=== PATIENT | female | born 1945 | race Caucasian/White ===

== ENCOUNTER → 2023-04-04 | Outpatient (CLI) | payer MEDICARE, SELFPAY ==
--- NOTE | 2023-04-04 15:37 | RAD_ITS ---
STUDY: X-RAY CHEST REASON FOR EXAM: Female, 77 years old. procedure TECHNIQUE: PA and lateral views of the chest. COMPARISON: None. FINDINGS: The lungs are clear and slightly underexpanded. There is no demonstrated pleural abnormality. Normal size heart. Normal mediastinum and essence. Normal visualized pulmonary arteries. There is atherosclerotic calcification of the aortic arch with tortuosity. There is demineralization of the osseous structures. 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 There is no demonstrated abnormality of the visualized soft tissue structures of the upper abdomen. RAD/Chest PA and Lateral IMPRESSION: No acute cardiopulmonary disease. Electronically Signed: Liss Aldana MD at 16:58 EST ,
--- OUTSIDE RECORDS SUMMARY | 2023-04-04 15:41 | XMS RPT_ITS | CCD ---
Author Name Unknown Address [address] [place] [address] Organization [facility] Care Team Providers Care Inspecting Supervisor Name Role Phone Janeth Olivo MD Primary Care Provider Janeth Olivo MD Primary Care Provider Mlaly Borden RN, Omayra Unavailable [phone] JILL MARTE Consulting Unavaila JR Hernandez Attending Unavailable TALAMPAS, JANETH D Primary Care Unavailable CYNTHIA ALCOCER Admitting Unavailable RUTHIE HAMM CNP Attending Unavailable TALAMPAS, JANETH Primary Care Unavailable TALAMPAS, JANETH D Primary Care Unavailable TALAMPAS, JANETH D Referring Unavailable TALAMPAS, JANETH D Primary Care Unavailable TALAMPAS, JANETH D Referring Unavailable TALAMPAS, JANETH D Attending Unavailable TALAMPAS, JANETH D Primary Care Unavailable TALAMPAS, JANETH D Referring Unavailable TALAMPAS, JANETH D Primary Care Unavailable NOVA, RUTHIE Referring Unavailable NOVA, RUTHIE Attending Unavailable TALAMPAS, JANETH D Primary Care Unavailable NOVA, RUTHIE Attending Unavailable TALAMPAS, JANETH D Primary Care Unavailable NOVA, RUTHIE Attending Unavailable TALAMPAS, JANETH D Primary Care Unavailable SHERLY LEONG Referring Unavailable TALAMPAS, JANETH D Primary Care Unavailable Allergies Allergy Classification Reported Allergen(s) Allergy Type Date of Onset Reaction(s) Facility (20 sources) levoFLOXacin; Translations: [LEVOFLOXACIN] Drug Allergy 9 [facility] Work Phone: (20 sources) PARoxetine; Translations: [PAROXETINE HCL] Drug Allergy 5 [facility] Work Phone: (20 sources) Sertraline; Translations: [SERTRALINE HCL] Drug Allergy 5 [facility] Work Phone: (20 sources) Sulfamethoxazole / Trimethoprim; Translations: [SULFAMETHOXAZOLE-TRI METHOPRIM] Drug Allergy 5 [facility] Work Phone: Medications Current Medications Medication Drug Class(es) Dates Sig (Normalized) Sig (Original) amLODIPine 5 mg oral tablet (3 sources) Dihydropyridine Calcium Channel Mary Start: 02-23-2023 End: 02-26-2024 amLODIPine (NORVASC) 5 mg tablet Take 1 tablet by mouth once daily. Do not take this medication if your blood pressure is less than 130/80 90 tablet 3 03/03/2023 02/26/2024 Active Completed/Discontinued Medications Medication Drug Class(es) Dates Sig (Normalized) Sig (Original) aspirin 81 mg oral tablet (15 sources) Platelet Aggregation Inhibitor, Nonsteroidal Anti-inflammatory Drug Start: 08-18-2006 End: 09-17-2022 take 1 tablet by mouth once daily Aspirin 81 mg ORAL Tab Take one(1) tablet daily. 0 08/18/2006 09/17/2022 Discontinued Problems Active Problems Problem Classification Problem Date Documented Date Episodic/Chronic Acquired foot deformities (1 source) Hammer toe; Translations: [Other hammer toe(s) (acquired), right foot] Chronic Acquired foot deformities (1 source) Bunion; Translations: [Bunion of unspecified foot] Episodic Cardiac dysrhythmias (4 sources) Bradycardia; Translations: [Bradycardia, unspecified] Onset: 02-21-2023 02-21-2023 Episodic Conduction disorders (4 sources) Atrioventricular block, second degree; Translations: [Unspecified right bundle-branch block] Onset: 02-21-2023 03-03-2023 Chronic Congestive heart failure; nonhypertensive (4 sources) Acute heart failure; Translations: [Heart failure, unspecified] Onset: 02-22-2023 02-22-2023 Chronic Diabetes mellitus without complication (20 sources) Type 2 diabetes mellitus without complication; Translations: [Type 2 diabetes mellitus without complications] Onset: 03-24-2016 Chronic Disorders of lipid metabolism (20 sources) Mixed hyperlipidemia; Translations: [Mixed hyperlipidemia] Onset: 11-13-2004 Chronic Essential hypertension (20 sources) Hypertensive disorder; Translations: [Essential (primary) hypertension] Onset: 10-16-2014 Chronic Heart valve disorders (3 sources) Heart murmur; Translations: [Cardiac murmur, unspecified] Onset: 02-28-2023 Episodic Immunizations and screening for infectious disease (1 source) Encounter for immunization; Translations: [Encounter for immunization] Onset: 02-21-2023 Episodic Mood disorders (2 sources) Depressive disorder; Translations: [Depression, unspecified depression type] Chronic Mood disorders (1 source) Mood disorders; Translations: [Depression, unspecified depression type] Onset: 09-17-2022 Other and ill-defined heart disease (1 source) Left ventricular diastolic dysfunction ; Translations: [Other ill-defined heart diseases] Onset: 02-28-2023 02-28-2023 Chronic Other connective tissue disease (1 source) Bursitis of left knee; Translations: [Other bursitis of knee, left knee] Episodic Other liver diseases (20 sources) Steatosis of liver; Translations: [Fatty (change of) liver, not elsewhere classified] Onset: 06-09-2006 01-27-2017 Chronic Other liver diseases (1 source) Fatty (change of) liver, not elsewhere classified; Translations: [Other chronic nonalcoholic liver disease] 10-11-2022 Chronic Other lower respiratory disease (1 source) Rib pain; Translations: [Pleurodynia] 11-24-2022 Episodic Other lower respiratory disease (2 sources) Shortness of breath; Translations: [Shortness of breath] Onset: 02-21-2023 Episodic Other lower respiratory disease (1 source) Dyspnea; Translations: [Shortness of breath] 03-03-2023 Episodic Other nutritional; endocrine; and metabolic disorders (20 sources) Body mass index 30+ - obesity; Translations: [Body mass index (BMI) 30.0-30.9, adult] Onset: 10-16-2014 10-16-2014 Chronic Other screening for suspected conditions (not mental disorders or infectious disease) (6 sources) Patient encounter status; Translations: [Encounter for screening mammogram for malignant neoplasm of breast] Onset: 02-21-2023 Episodic Other upper respiratory disease (20 sources) Allergic rhinitis due to pollen; Translations: [Allergic rhinitis due to pollen] Onset: 03-28-2006 03-28-2006 Chronic Other upper respiratory infections (1 source) Acute upper respiratory infection; Translations: [Acute upper respiratory infection, unspecified] Episodic Past or Other Problems Problem Classification Problem Date Documented Da te Episodic/Chronic E Codes: Fall (2 sources) Fall on same level from slipping, tripping or stumbling ; Translations: [Fall on same level from slipping, tripping and stumbling without subsequent striking against object, initial encounter] Onset: 11-24-2022 11-24-2022 Episodic Other and unspecified benign neoplasm (6 sources) Polyp of colon; Translations: [Polyp of colon] Onset: 09-17-2022 Episodic Other and unspecified benign neoplasm (1 source) Polyp of colon; Translations: [Polyp of colon, unspecified part of colon, unspecified type] Onset: 09-17-2022 Episodic Other bone disease and musculoskeletal deformities (20 sources) Osteopenia; Translations: [Other specified disorders of bone density and structure, unspecified site] Onset: 01-08-2011 01-08-2011 Episodic Other gastrointestinal disorders (20 sources) Functional diarrhea; Translations: [Functional diarrhea] Onset: 03-23-2016 03-23-2016 Episodic Other liver diseases (20 sources) Elevated liver enzymes level; Translations: [Abnormal levels of other serum enzymes] Onset: 03-23-2016 03-23-2016 Episodic Other lower respiratory disease (1 source) Pleurodynia; Translations: [Rib pain on left side] Onset: 11-24-2022 Episodic Results Test Name Value Interpretation Reference Range Facil ity Vital Signs Date Time Vital Sign Value Performing Clinician Ileana mix 03-03-2023 13:45-0500 Diastolic blood pressure 53 mm[Hg] Ruthie Nova BLENDING MACHINE FEEDER.BRANCH LOGISTICS SUPERVISOR Work Phone: [facility] 03-03-2023 13:45-0500 Heart rate 52 /min Ruthie Nova BLENDING MACHINE FEEDER.BRANCH LOGISTICS SUPERVISOR Work Phone: [facility] 03-03-2023 13:45-0500 Systolic blood pressure 146 mm[Hg] Ruthie Avtar BLENDING MACHINE FEEDER.BRANCH LOGISTICS SUPERVISOR Work Phone: [facility] 03-03-2023 13:44-0500 Body weight 75.75 kg Ruthie Nova BLENDING MACHINE FEEDER.BRANCH LOGISTICS SUPERVISOR Work Phone: [facility] 03-03-2023 13:44-0500 Respiratory rate 16 /min Ruthie Hartleys BLENDING MACHINE FEEDER.BRANCH LOGISTICS SUPERVISOR Work Phone: [facility] 11-24-2022 14:14-0400 Body temperature 98.6 [degF] Sherly Leong BLENDING MACHINE FEEDER.KETTLE FRY COOK OPERATOR Work Phone: [facility] 11-24-2022 14:14-0400 Body weight 74.39 kg Sherly Leong BLENDING MACHINE FEEDER.KETTLE FRY COOK OPERATOR Work Phone: [facility] 11-24-2022 14:14-0400 Diastolic blood pressure 78 mm[Hg] Sherly Leong BLENDING MACHINE FEEDER.KETTLE FRY COOK OPERATOR Work Phone: [facility] 11-24-2022 14:14-0400 Heart rate 98 /min Sherly Leong BLENDING MACHINE FEEDER.KETTLE FRY COOK OPERATOR Work Phone: [facility] 11-24-2022 14:14-0400 Respiratory rate 18 /min Sherly Leong BLENDING MACHINE FEEDER.KETTLE FRY COOK OPERATOR Work Phone: [facility] 11-24-2022 14:14-0400 SaO2% (BldA) [Mass fraction] 94 % Sherly Leong BLENDING MACHINE FEEDER.KETTLE FRY COOK OPERATOR Work Phone: [facility] 11-24-2022 14:14-0400 Systolic blood pressure 132 mm[Hg] Sherly Leong BLENDING MACHINE FEEDER.KETTLE FRY COOK OPERATOR Work Phone: [facility] 09-17-2022 17:54-0400 Diastolic blood pressure 70 mm[Hg] Janeth Olivo MD Work Phone: [facility] 09-17-2022 17:54-0400 Systolic blood pressure 130 mm[Hg] Janeth Olivo MD Work Phone: [facility] 09-17-2022 16:55-0400 Body temperature 99.19 [degF] Janeth Olivo MD Work Phone: [facility] 09-17-2022 16:55-0400 Body weight 75.3 kg Janeth Olivo MD Work Phone: [facility] 09-17-2022 16:55-0400 Heart rate 95 /min Janeth Olivo MD Work Phone: [facility] 09-17-2022 16:55-0400 Respiratory rate 18 /min Janeth Olivo MD Work Phone: [facility] 09-17-2022 16:55-0400 SaO2% (BldA) [Mass fraction] 96 % Janeth Olivo MD Work Phone: [facility] 02-20-2022 13:06-0500 Body temperature 98.49 [degF] Tracey Solomon BLENDING MACHINE FEEDER.KETTLE FRY COOK OPERATOR Work Phone: [facility] 02-20-2022 13:06-0500 Body weight 75.48 kg Tracey Solomon BLENDING MACHINE FEEDER.KETTLE FRY COOK OPERATOR Work Phone: [facility] 02-20-2022 13:06-0500 Diastolic blood pressure 74 mm[Hg] Tracey Solomon BLENDING MACHINE FEEDER.KETTLE FRY COOK OPERATOR Work Phone: [facility] 02-20-2022 13:06-0500 Heart rate 101 /min Tracey Solomon BLENDING MACHINE FEEDER.KETTLE FRY COOK OPERATOR Work Phone: [facility] 02-20-2022 13:06-0500 Respiratory rate 18 /min Tracey Solomon BLENDING MACHINE FEEDER.KETTLE FRY COOK OPERATOR Work Phone: [facility] 02-20-2022 13:06-0500 SaO2% (BldA) [Mass fraction] 96 % Tracey Solomon BLENDING MACHINE FEEDER.KETTLE FRY COOK OPERATOR Work Phone: [facility] 02-20-2022 13:06-0500 Systolic blood pressure 138 mm[Hg] Tracey Solomon BLENDING MACHINE FEEDER.KETTLE FRY COOK OPERATOR Work Phone: [facility] 12-04-2021 16:11-0400 Body weight 73.03 kg Janeth Olivo MD Work Phone: [facility] 12-04-2021 16:11-0400 Diastolic blood pressure 72 mm[Hg] Janeth Olivo MD Work Phone: [facility] 12-04-2021 16:11-0400 Heart rate 93 /min Janeth Olivo MD Work Phone: [facility] 12-04-2021 16:11-0400 SaO2% (BldA) [Mass fraction] 94 % Janeth Olivo MD Work Phone: [facility] 12-04-2021 16:11-0400 Systolic blood pressure 136 mm[Hg] Janeth Olivo MD Work Phone: [facility] 06-11-2021 13:41-0400 Body weight 73.94 kg Ruthie Nova BLENDING MACHINE FEEDER.BRANCH LOGISTICS SUPERVISOR Work Phone: [facility] 06-11-2021 13:41-0400 Diastolic blood pressure 68 mm[Hg] Ruthie Nova BLENDING MACHINE FEEDER.BRANCH LOGISTICS SUPERVISOR Work Phone: [facility] 06-11-2021 13:41-0400 Heart rate 92 /min Ruthie Nova BLENDING MACHINE FEEDER.BRANCH LOGISTICS SUPERVISOR Work Phone: [facility] 06-11-2021 13:41-0400 Respiratory rate 16 /min Ruthie Nova BLENDING MACHINE FEEDER.BRANCH LOGISTICS SUPERVISOR Work Phone: [facility] 06-11-2021 13:41-0400 Systolic blood pressure 136 mm[Hg] Ruthie Nova BLENDING MACHINE FEEDER.BRANCH LOGISTICS SUPERVISOR Work Phone: [facility] Encounters Encounter Date Encounter Type Care Provider Facility Start: 03-10-2023 End: 03-10-2023 ambulatory [facility] Facility:[facility] Start: 03-03-2023 End: 03-03-2023 ambulatory [facility] Facility:[facility] Start: 03-03-2023 End: 03-03-2023 Patient encounter procedure Ruthie Nova BLENDING MACHINE FEEDER.BRANCH LOGISTICS SUPERVISOR Work Phone: [facility] Procedures Date Procedure Procedure Detail Performing Clinician Start: 03-03-2023 INFLUENZA VACCINE, P RSV FREE, AGE 65+ YR, HIGH DOSE, QUADRIVALENT (FLUZONE HIGH-DOSE) Ruthie Nova BLENDING MACHINE FEEDER.BRANCH LOGISTICS SUPERVISOR Work Phone: Start: 12-14-2023 PFIZER-BIONTECH COVI D-19 VACCINE ( SEASON) AGE 12+ YR Ruthiekyaw Nova BLENDING MACHINE FEEDER.BRANCH LOGISTICS SUPERVISOR Work Phone: Start: 12-29-2021 Us abdominal real ti me w/image limited Janeth Olivo MD Work Phone: Start: 07-20-2021 Screening mammograph y bi 2-view breast inc cad Bulk Order Provider Start: 12-17-2020 Colonoscopy Ruthie jacques BLENDING MACHINE FEEDER.BRANCH LOGISTICS SUPERVISOR Work Phone: Start: 11-11-2020 Adult depression scr eening assessment Ruthiekyaw Nova BLENDING MACHINE FEEDER.BRANCH LOGISTICS SUPERVISOR Work Phone: Plan of Treatment Date Care Activity Detail Author Start: 11-30-2027 Urine microalbumin profile [facility] Start: 12-17-2025 Colonoscopy COLONOSCOPY [facility] Start: 12-17-2025 COLORECTAL CANCER SCREENING COLORECTAL CANCER SCREENING [facility] Start: 02-22-2024 Glaucoma screening Dilated Retinal E xam [facility] Start: 02-22-2024 Hepatitis C antibody , confirmatory test Dilated Retinal Exam [facility] Start: 09-29-2023 Hepatitis B screening URINE AL BUMIN:CREATININE RATIO [facility] Start: 09-29-2023 Hepatitis B surface antibody level LDL CHOLESTEROL [facility] Start: 09-18-2023 ANNUAL PCP TEAM AUTO HAULER MIRIAM DISEASE VISIT ANNUAL PCP TEAM CHRONIC DISEASE VISIT [facility] Start: 03-31-2023 Hemoglobin A1c measurement HbA1C [facility] Start: 03-31-2023 Hemoglobin A1c/Hemoglobin.total in Blood HBA1C [facility] Start: 12-04-2022 3 comp foot exam completed DIABETIC FOOT EXAM [facility] Start: 12-04-2022 ANNUAL PCP TEAM AUTO HAULER MIRIAM DISEASE VISIT ANNUAL PCP TEAM CHRONIC DISEASE VISIT [facility] Start: 12-04-2022 COVID-19 VACCINE (4 - Booster for Pfizer series) COVID-19 VACCINE (4 - Booster for Pfizer series) [facility] Immunizations Immunization Date Immunization Notes Care Provider Vick aranda 03-03-2023 COVID-19 vaccine, ag e 12+ yr, season (PFIZER-BIONTECH) Ruthie Nova BLENDING MACHINE FEEDER.BRANCH LOGISTICS SUPERVISOR Work Phone: [facility] Work Phone: 03-03-2023 influenza (HD-IIV4) vaccine, age 65+ yr, high dose, quadrivalent, PF (FLUZONE HIGH-DOSE) Ruthie Nova BLENDING MACHINE FEEDER.BRANCH LOGISTICS SUPERVISOR Work Phone: [facility] Work Phone: 01-15-2021 influenza (aIIV4) vaccine, age 65+ yr, quadrivalent, PF (FLUAD QUADRIVALENT) Ruthie Nova BLENDING MACHINE FEEDER.BRANCH LOGISTICS SUPERVISOR Work Phone: [facility] Work Phone: 01-15-2021 influenza, injectabl e, quadrivalent, preservative free Ruthie Nova BLENDING MACHINE FEEDER.BRANCH LOGISTICS SUPERVISOR Work Phone: [facility] 01-15-2021 influenza virus vaccine, unspecified formulation Blas Joepadmini [facility] 12-09-2020 zoster vaccine recombinant Ruthie Nova BLENDING MACHINE FEEDER.BRANCH LOGISTICS SUPERVISOR Work Phone: [facility] Work Phone: 12-09-2020 zoster vaccine, unspecified formulation Ruthie Nova BLENDING MACHINE FEEDER.BRANCH LOGISTICS SUPERVISOR Work Phone: [facility] 06-10-2020 zoster vaccine recombinant Ruthie Nova BLENDING MACHINE FEEDER.BRANCH LOGISTICS SUPERVISOR Work Phone: [facility] Work Phone: 06-10-2020 zoster vaccine, unspecified formulation Ruthie Nova BLENDING MACHINE FEEDER.BRANCH LOGISTICS SUPERVISOR Work Phone: [facility] 06-09-2020 zoster vaccine recombinant Ruthie Nova BLENDING MACHINE FEEDER.BRANCH LOGISTICS SUPERVISOR Work Phone: [facility] Work Phone: 01-14-2020 influenza, high dose seasonal, preservative-free Ruthie Nova BLENDING MACHINE FEEDER.BRANCH LOGISTICS SUPERVISOR Work Phone: [facility] Work Phone: 01-14-2020 influenza, high-dose , quadrivalent vaccine (FLUZONE HIGH DOSE QUADRIVALENT) Ruthie Nova BLENDING MACHINE FEEDER.BRANCH LOGISTICS SUPERVISOR Work Phone: [facility] Work Phone: 01-14-2020 influenza, injectabl e, quadrivalent, preservative free Ruthie Nova BLENDING MACHINE FEEDER.BRANCH LOGISTICS SUPERVISOR Work Phone: [facility] 12-25-2018 influenza, high dose seasonal, preservative-free Ruthie Nova BLENDING MACHINE FEEDER.BRANCH LOGISTICS SUPERVISOR Work Phone: [facility] 11-29-2017 tetanus toxoid, redu tim diphtheria toxoid, and acellular pertussis vaccine, adsorbed Ruthie Nova BLENDING MACHINE FEEDER.BRANCH LOGISTICS SUPERVISOR Work Phone: [facility] Work Phone: 11-23-2017 influenza, high dose seasonal, preservative-free Ruthie Nova BLENDING MACHINE FEEDER.BRANCH LOGISTICS SUPERVISOR Work Phone: [facility] 01-17-2017 influenza, high dose seasonal, preservative-free Ruthie Nova BLENDING MACHINE FEEDER.BRANCH LOGISTICS SUPERVISOR Work Phone: [facility] Work Phone: 12-04-2015 influenza, high dose seasonal, preservative-free Ruthie Nova BLENDING MACHINE FEEDER.BRANCH LOGISTICS SUPERVISOR Work Phone: [facility] Work Phone: 02-27-2015 zoster vaccine, live Ruthie B roger BLENDING MACHINE FEEDER.BRANCH LOGISTICS SUPERVISOR Work Phone: [facility] Work Phone: 01-22-2015 pneumococcal polysaccharide vaccine, 23 valent Ruthie Nova BLENDING MACHINE FEEDER.BRANCH LOGISTICS SUPERVISOR Work Phone: [facility] 01-07-2014 pneumococcal conjuga te vaccine, 13 valent Ruthie Nova BLENDING MACHINE FEEDER.BRANCH LOGISTICS SUPERVISOR Work Phone: [facility] 12-04-2011 influenza virus vaccine, unspecified formulation Ruthie Nova BLENDING MACHINE FEEDER.BRANCH LOGISTICS SUPERVISOR Work Phone: [facility] 12-16-2010 influenza virus vaccine, unspecified formulation Ruthie Nova BLENDING MACHINE FEEDER.BRANCH LOGISTICS SUPERVISOR Work Phone: [facility] Work Phone: 01-17-2007 influenza virus vaccine, unspecified formulation Ruthie Nova BLENDING MACHINE FEEDER.BRANCH LOGISTICS SUPERVISOR Work Phone: [facility] Work Phone: 08-18-2006 pneumococcal polysaccharide vaccine, 23 valent Ruthie Nova SERVANDO.BRANCH LOGISTICS SUPERVISOR Work Phone: [facility] Work Phone: 01-26-2005 influenza virus vaccine, unspecified formulation Ruthie Nova SERVANDO.BRANCH LOGISTICS SUPERVISOR Work Phone: [facility] Work Phone: 11-13-2004 diphtheria and tetan us toxoids, adsorbed for pediatric use Ruthiekyaw Nova APRN.BRANCH LOGISTICS SUPERVISOR Work Phone: [facility] Work Phone: NEGATED: Highlighted row has not occurred!02-21-2023 COVID-19 vaccine, age 12+ yr, season (Oz Sonotek) Blas Teapadmini [facility] Work Phone: NEGATED: Highlighted row has not occurred!02-21-2023 influenza (HD-IIV4) vaccine, age 65+ yr, high dose, quadrivalent, PF (FLUZONE HIGH-DOSE) Blas Teapadmini [facility] Work Phone: Payers Date Payer Category Payer Medicare HU[employer]NA MEDICARE HU[employer]NA GOLD PLUS [id number] 2020-Present [phone] [address] [address] [place] [address] O [id number] 2020 Medicare HUMANA MEDICARE HU[employer]NA GOLD PLUS [id number] 2020-Present [phone] [address] [address] [place] [address] O [id number] 2020 Private Health Insurance [id number] 1945 Unknown [id number] Private Health Insurance Social History Date Type Detail Facility Start: 12-04-2021 Tobacco smoking status NHIS Never smoked tobacco [facility] Work Phone: Start: 06-11-2021 End: 03-03-2023 Alcohol intake Current drinker of alcohol (finding) [facility] Start: 06-11-2021 End: 09-17-2022 Alcohol intake [facility] Start: 06-22-2019 History SDOH Alcohol Frequency 3 [facility] Start: 06-22-2019 History SDOH Alcohol Std Drinks 1 [facility] Start: 12-17-2020 History SDOH Alcohol Comment glass of wine 2 times per week [facility] Start: 06-22-2019 History SDOH Social Connections Phone 5 [facility] Start: 06-22-2019 History SDOH Social Connections Get Together 2 [facility] Start: 06-22-2019 History SDOH Physical Activity DPW 0 [facility] Start: 06-22-2019 History SDOH Financial 4 [facility] Start: 06-22-2019 Education 17 [facility] Start: 1945 Sex Assigned At Female [facility] Start: 06-01-2021 End: 02-20-2022 Exposure to SARS-CoV-2 (event) Not sure [facility] Work Phone: Start: 12-04-2021 Tobacco use and exposure Smokeless tobacco non-user [facility] Start: 12-13-2021 End: 12-23-2021 Exposure to SARS-CoV-2 (event) Unable to assess [facility] Work Phone: Start: 06-22-2019 End: 09-17-2022 Social connection and isolation panel [facility] Do you belong to any clubs or organizations such as protestant groups, unions, fraternal or athletic groups, or school groups? No [facility] Are you now , , , , never or living with a partner? [facility] How often to you hav e a drink containing alcohol? 2-4 times a month [facility] How many standard dr inks containing alcohol do you have on a typical day? 1 or 2 [facility] How often do you hav e 6 or more drinks on 1 occasion? Never [facility] How hard is it for y ou to pay for the very basics like food, housing, medical care, and heating Not very hard [facility] Adult Depression Screening Assessment 0 [facility] Do you feel stress - tense, restless, nervous, or anxious, or unable to sleep at night because your mind is troubled all the time - these days [OSQ] Not at all [facility] (I/We) worried wheth er (my/our) food would run out before (I/we) got money to buy more. Never true [facility] Start: 11-19-2020 Gender identity Identifies as female gender (finding) [facility] Start: 11-19-2020 Sexual orientation Heterosexual (finding) [facility] Medical Equipment Procedure Code Equipment Code Equipment Origin al Text Equipment Identifier Dates Start: 08-25-2006 End: 09-17-2022 Clinical Notes 01-22-2015 to 03-10-2023 Patient InstructionsBroRuthie dubon APRN.BRANCH LOGISTICS SUPERVISOR - 03/03/2023 1:40 PM Blas Treadwell - 02/23/2023 10:37 AM Blas Treadwell - 02/22/2023 2:14 PM Sherly Russo APRN.KETTLE FRY COOK OPERATOR - 11/24/2022 2:20 PM EDT Note Date & Type Note Facility 03-10-2023 Note HNO ID: [id number] Author: Ruthie Nova APRN.BRANCH LOGISTICS SUPERVISOR Service: ? Author Type: Nurse Specialist Type: Progress Notes Filed: 03/10/2023 3:26 PM Note Text: SUBJECTIVE: RSV Vaccine(1 - 1-dose 60+ series) Never done BP Controlled (<130/80) due on 06/11/2022 Diabetic Foot Exam due on 12/04/2022 HPI Wendy Shipley is a 77 year old female. Returns to clinic for routine visit. ACTIVE PROBLEM LIST Mixed Hyperlipidemia RHINITIS ALLERGIC, DUE TO POLLEN Fatty Liver Osteopenia Hypertension Goal Bp (Blood Pressure) < 150/90 Bmi 30.0-30.9,Adult Functional Diarrhea Elevated Liver Enzymes Type 2 Diabetes Mellitus Without Complication, Without Long-Term Current Use of Insulin (Hcc) Colon Polyp Bradycardia Acute Decompensated Heart Failure (Hcc) Diastolic Chf (Hcc) Heart Murmur Left Ventricular Diastolic Dysfunction With Preserved Systolic Function Hypertension HPI excerpted from previous visits: 02/21/2023 Since last seen she had an urgent care visit November 24, 2022 for rib pain on the left side. Chest x-ray at that time was negative. Presents today for routine visit. She notes intermittent shortness of breath recently. Typically with exertion. Reports no change in functional capacity. Without complaint of left-sided chest pain or rib pain today. No palpitations. Occasional dizziness and lightheadedness is present. No ankle swelling. No presyncope or syncope. Notes no change in ability to walk flat surface. Able to take 1 flight of stairs without chest pain or shortness of breath. Presents for routine visit today and noted to have bradycardia and EKG changes. She has new EKG changes since last EKG completed with sinus bradycardia,first-degree AV block, possible second-degree AV block noted in V1 by my review, new right bundle branch block, ST and T wave changes. She has intermittent shortness of breath, dizziness and lightheadedness. Echocardiogram completed 2021 showed increased LVOT gradient with Valsalva. She has not reported chest pain or syncope. She did have report of rib pain in November 2022. Recommend further evaluation at emergency department. She prefers to go to [facility] by private transport, to drive. She reports being seen by outside hospital nozzleman at [facility] and had echocardiogram completed at their office several days ago. Still has not received outside nozzleman review of echocardiogram results. She prefers to follow-up with [facility] providers. She currently notes shortness of breath on exertion with walking further distances such as in from the parking lot to her visit today. She notes dizziness which is positional. Without report of palpitations or chest pain. No presyncope or syncope. Without report of lightheadedness today. Notes that she has started amlodipine, no adverse effects noted. Negative troponin. BNP was elevated. Outside echocardiogram report received since last here. She returns to clinic for application of Zio. Today notes feeling a little lightheaded on occasion. Without report of shortness of breath or dizziness today. Without headache, chest pain, palpitations, peripheral edema, orthopnea, fatigue and PND. Last 14 Encounter BP Readings: Date: BP: 03/10/2023 139/80 03/03/2023 146/53 02/21/2023 148/66 02/21/2023 165/71[bp average[ 11/24/2022 132/78 09/17/2022 130/70 02/20/2022 138/74 12/04/2021 136/72 06/11/2021 136/68 04/13/2021 136/74 12/12/2020 122/62 12/02/2020 123/62 11/19/2020 136/72 11/11/2020 136/70 Review of Systems Constitutional: Negative. Respiratory: Negative. Cardiovascular: Negative. Endocrine: Negative for polydipsia and polyphagia. Objective BP 139/80 Pulse (!) 49 Resp 16 Wt 74.4 kg (164 lb) BMI 29.05 kg/m? Physical Exam Constitutional: Appearance: Normal appearance. HENT: Head: Normocephalic and atraumatic. Eyes: Conjunctiva/sclera: Conjunctivae normal. Neck: Thyroid: No thyromegaly. Vascular: No carotid bruit or JVD. Cardiovascular: Rate and Rhythm: Regular rhythm. Bradycardia present. Heart sounds: Murmur (RUSB) heard. Pulmonary: Effort: Pulmonary effort is normal. Breath sounds: Normal breath sounds. Abdominal: General: Bowel sounds are normal. Palpations: Abdomen is soft. Musculoskeletal: Cervical back: No muscular tenderness. Right lower leg: No edema. Left lower leg: No edema. Lymphadenopathy: Cervical: No cervical adenopathy. Skin: General: Skin is warm and dry. Neurological: General: No focal deficit present. Mental Status: She is alert and oriented to person, place, and time. ALLERGIES Allergen Reactions Levaquin [Levofloxa* Joint pain Paxil [Paroxetine H* Septra [Sulfamethox* Zoloft [Sertraline * Medications: amLODIPine (NORVASC) 5 mg tablet Take 1 tablet by mouth once daily. Do not take this medication if your blood pressure is less than 130/80 lisinop (more content not included)... [facility] 03-03-2023 Note HNO ID: [id number] Author: Ruthie Nova APRN.BRANCH LOGISTICS SUPERVISOR Service: ? Author Type: Nurse Specialist Type: Progress Notes Filed: 03/03/2023 2:59 PM Note Text: Transitional Care Management Progress Note The patients TCM visit was performed within the 14 days of discharge. Date of admission February 21, 2023 Patient's Date of discharge: February 22, 2023 Date of initial coordinator contact after discharge: February 23, 2023 Discharge diagnosis: Bradycardia hypertension hyperlipidemia Medication review completed Yes Ruthie Nova APRN.BRANCH LOGISTICS SUPERVISOR Provider Documentation: In follow-up of hospitalization, Wendy Shipley is a 77 year old female with the chief complaint of bradycardia. I have reviewed the patient?s last hospital course including diagnostic testing performed during this hospitalization, their discharge medications, and my assessment and plan with the patient and any family members present at today?s visit. HPI: She was referred to emergency department for new onset of bradycardia with EKG changes, sinus bradycardia with first degree AV block, second-degree AV block noted and lead V1, new right bundle branch block and SNT wave changes. She had reported intermittent shortness of breath dizziness lightheadedness. Echocardiogram completed 2021 showed increased gradients of LVOT with Valsalva. She was without chest pain or syncope. She reports being seen by outside hospital nozzleman at [facility] and had echocardiogram completed at their office several days ago. Still has not received outside nozzleman review of echocardiogram results. She prefers to follow-up with [facility] providers. She currently notes shortness of breath on exertion with walking further distances such as in from the parking lot to her visit today. She notes dizziness which is positional. Without report of palpitations or chest pain. No presyncope or syncope. Without report of lightheadedness today. Notes that she has started amlodipine, no adverse effects noted. Negative troponin. BNP was elevated. PAST MEDICAL HISTORY: Reviewed and updated ALLERGIES: Reviewed and updated MEDICATIONS: Reviewed and updated SOCIAL HISTORY: Reviewed and updated FAMILY HISTORY: Reviewed and updated REVIEW OF SYSTEMS: All other systems reviewed and negative, other than HPI. PHYSICAL EXAMINATION There were no vitals taken for this visit. General appearance: Well appearing, alert, in no acute distress, well-hydrated, well nourished. Lungs: Lungs clear to auscultation. No wheezing, rhonchi, rales. Heart: Positive findings: bradycardia, murmur: 3/6 systolic medium pitched harsh murmur URSB Abdomen: Abdomen soft, non-tender. Bowel sounds normal. No masses, organomegaly Extremities: No edema, or skin discoloration. Good capillary refill. 1. I have reviewed the patient record including associated test results during the last hospitalization Yes 2. I have reviewed Lab test Yes 3. I have reviewed Radiology test Yes 4. I reviewed assessment/plan with the patient/family member Yes Component Latest Ref Rng AND Units 02/21/2023 02/21/2023 02/21/2023 02/22/2023 02/22/2023 02/22/2023 9:20 PM 10:21 PM 11:00 PM 12:15 AM 5:54 AM 5:54 AM WBC 3.70 - 11.00 k/uL 6.52 6.80 RBC 3.90 - 5.20 m/uL 4.39 4.36 Hemoglobin 11.5 - 15.5 g/dL 14.0 13.9 Hematocrit 36.0 - 46.0 % 40.8 41.3 MCV 80.0 - 100.0 fL 92.9 94.7 MCH 26.0 - 34.0 pg 31.9 31.9 MCHC 30.5 - 36.0 g/dL 34.3 33.7 RDW-CV 11.5 - 15.0 % 13.2 13.3 Platelet Count 150 - 400 k/uL 126 (L) 130 (L) MPV 9.0 - 12.7 fL 11.0 11.0 Neut% % 56.7 48.5 Abs Neut (ANC) 1.45 - 7.50 k/uL 3.70 3.29 Lymph% % 28.2 30.1 Abs Lymph 1.00 - 4.00 k/uL 1.84 2.05 [place]% % 12.1 16.0 Abs [place] <0.87 k/uL 0.79 1.09 (H) Eosin% % 2.5 4.7 Abs Eosin <0.46 k/uL 0.16 0.32 Baso% % 0.2 0.3 Abs Baso <0.11 k/uL <0.03 <0.03 Immature Gran % % 0.3 0.4 IMMATURE GRANS (ABS) <0.10 k/uL <0.03 0.03 NRBC /100 WBC 0.0 0.0 Absolute nRBC <0.01 k/uL <0.01 <0.01 DTYPE Auto Auto Albumin 3.9 - 4.9 g/dL 3.7 (L) 3.7 (L) Calcium 8.5 - 10.2 mg/dL 9.4 9.1 Phosphorus 2.7 - 4.8 mg/dL 4.7 Glucose 74 - 99 mg/dL 144 (H) 124 (H) BUN 7 - 21 mg/dL 19 17 Creatinine 0.58 - 0.96 mg/dL 0.70 0.78 Sodium 136 - 144 mmol/L 141 143 Potassium 3.7 - 5.1 mmol/L 4.1 4.4 Chloride 97 - 105 mmol/L 106 (H) 105 CO2 22 - 30 mmol/L 24 22 Anion Gap 9 - 18 mmol/L 11 16 eGFR >=60 mL/min/1.73mA? 90 79 Bilirubin, Total 0.2 - 1.3 mg/dL 0.7 Bilirubin, Conjug <0.2 mg/dL 0.2 (H) Alkaline Phosphatase 34 - 123 U/L 120 AST 13 - 35 U/L 38 (H) ALT 7 - 38 U/L 26 Protein, Total 6.3 - 8.0 g/dL 6.3 d Dimer <500 ng/mL FEU 700 (H) D Dimer Age-related Cutoff ng/mL FEU 760 Magnesium 1.7 - 2.3 mg/dL 2.1 LASHAE High Sensitivity <12 ng/L 20 (H) 19 (H) 19 (H) NT Pro BNP <450 pg/mL 523 (H) TSH 0.270 - 4.200 mIU/L 2.990 ASSESSMENT/PLAN 1. Bradycardia - ICD9: 427.89, ICD10: R00.1 (primary diagnosis) She reports being seen by outside hos (more content not included)... [facility] 03-03-2023 Instructions Ruthie Nova APRN.CNS - 03/03/2023 2:14 PM EST Call to schedule a cardiology appointment (see mychart message) [phone]. Go to the ER ofr any severe or concerning symptoms documented in this encounter [facility] 03-03-2023 History of Present illness Narrative Transitional Care Management Progress Note The patients TCM visit was performed within the 14 days of discharge. Date of admission February 21, 2023 Patient's Date of discharge: February 22, 2023 Date of initial coordinator contact after discharge: February 23, 2023 Discharge diagnosis: Bradycardia hypertension hyperlipidemia Medication review completed Yes Ruthie Nova, BLENDING MACHINE FEEDER.BRANCH LOGISTICS SUPERVISOR Provider Documentation: In follow-up of hospitalization, Wendy Shipley is a 77 year old female with the chief complaint of bradycardia. I have reviewed the patient s last hospital course including diagnostic testing performed during this hospitalization, their discharge medications, and my assessment and plan with the patient and any family members present at today s visit. HPI: She was referred to emergency department for new onset of bradycardia with EKG changes, sinus bradycardia with first degree AV block, second-degree AV block noted and lead V1, new right bundle branch block and SNT wave changes. She had reported intermittent shortness of breath dizziness lightheadedness. Echocardiogram completed 2021 showed increased gradients of LVOT with Valsalva. She was without chest pain or syncope. She reports being seen by outside hospital nozzleman at [facility] and had echocardiogram completed at their office several days ago. Still has not received outside nozzleman review of echocardiogram results. She prefers to follow-up with [facility] providers. She currently notes shortness of breath on exertion with walking further distances such as in from the parking lot to her visit today. She notes dizziness which is positional. Without report of palpitations or chest pain. No presyncope or syncope. Without report of lightheadedness today. Notes that she has started amlodipine, no adverse effects noted. Negative troponin. BNP was elevated. PAST MEDICAL HISTORY: Reviewed and updated ALLERGIES: Reviewed and updated MEDICATIONS: Reviewed and updated SOCIAL HISTORY: Reviewed and updated FAMILY HISTORY: Reviewed and updated REVIEW OF SYSTEMS: All other systems reviewed and negative, other than HPI. PHYSICAL EXAMINATION There were no vitals taken for this visit. General appearance: Well appearing, alert, in no acute distress, well-hydrated, well nourished. Lungs: Lungs clear to auscultation. No wheezing, rhonchi, rales. Heart: Positive findings: bradycardia, murmur: 3/6 systolic medium pitched harsh murmur URSB Abdomen: Abdomen soft, non-tender. Bowel sounds normal. No masses, organomegaly Extremities: No edema, or skin discoloration. Good capillary refill. 1. I have reviewed the patient record including associated test results during the last hospitalization Yes 2. I have reviewed Lab test Yes 3. I have reviewed Radiology test Yes 4. I reviewed assessment/plan with the patient/family member Yes Component Latest Ref Rng & Units 02/21/2023 02/21/2023 02/21/2023 02/22/2023 02/22/2023 02/22/2023 9:20 PM 10:21 PM 11:00 PM 12:15 AM 5:54 AM 5:54 AM WBC 3.70 - 11.00 k/uL 6.52 6.80 RBC 3.90 - 5.20 m/uL 4.39 4.36 Hemoglobin 11.5 - 15.5 g/dL 14.0 13.9 Hematocrit 36.0 - 46.0 % 40.8 41.3 MCV 80.0 - 100.0 fL 92.9 94.7 MCH 26.0 - 34.0 pg 31.9 31.9 MCHC 30.5 - 36.0 g/dL 34.3 33.7 RDW-CV 11.5 - 15.0 % 13.2 13.3 Platelet Count 150 - 400 k/uL 126 (L) 130 (L) MPV 9.0 - 12.7 fL 11.0 11.0 Neut% % 56.7 48.5 Abs Neut (ANC) 1.45 - 7.50 k/uL 3.70 3.29 Lymph% % 28.2 30.1 Abs Lymph 1.00 - 4.00 k/uL 1.84 2.05 [place]% % 12.1 16.0 Abs [place] <0.87 k/uL 0.79 1.09 (H) Eosin% % 2.5 4.7 Abs Eosin <0.46 k/uL 0.16 0.32 Baso% % 0.2 0.3 Abs Baso <0.11 k/uL <0.03 <0.03 Immature Gran % % 0.3 0.4 IMMATURE GRANS (ABS) <0.10 k/uL <0.03 0.03 NRBC /100 WBC 0.0 0.0 Absolute nRBC <0.01 k/uL <0.01 <0.01 DTYPE Auto Auto Albumin 3.9 - 4.9 g/dL 3.7 (L) 3.7 (L) Calcium 8.5 - 10.2 mg/dL 9.4 9.1 Phosphorus 2.7 - 4.8 mg/dL 4.7 Glucose 74 - 99 mg/dL 144 (H) 124 (H) BUN 7 - 21 mg/dL 19 17 Creatinine 0.58 - 0.96 mg/dL 0.70 0.78 Sodium 136 - 144 mmol/L 141 143 Potassium 3.7 - 5.1 mmol/L 4.1 4.4 Chloride 97 - 105 mmol/L 106 (H) 105 CO2 22 - 30 mmol/L 24 22 Anion Gap 9 - 18 mmol/L 11 16 eGFR >=60 mL/min/1.73m 90 79 Bilirubin, Total 0.2 - 1.3 mg/dL 0.7 Bilirubin, Conjug <0.2 mg/dL 0.2 (H) Alkaline Phosphatase 34 - 123 U/L 120 AST 13 - 35 U/L 38 (H) ALT 7 - 38 U/L 26 Protein, Total 6.3 - 8.0 g/dL 6.3 d Dimer <500 ng/mL FEU 700 (H) D Dimer Age-related Cutoff ng/mL FEU 760 Magnesium 1.7 - 2.3 mg/dL 2.1 LASHAE High Sensitivity <12 ng/L 20 (H) 19 (H) 19 (H) NT Pro BNP <450 pg/mL 523 (H) TSH 0.270 - 4.200 mIU/L 2.990 ASSESSMENT/PLAN 1. Bradycardia - ICD9: 427.89, ICD10: R00.1 (primary diagnosis) She reports being seen by outside hospital nozzleman when she was at [facility]. She reports echocardiogram completed at their office but has no report yet regarding this. She prefers to see a [facility] nozzleman. Will request echo report. - ECHO - PERFLUTREN LIPID MICROSPHERES 1.1 MG/ML INJECTION IN NS 10 ML - SODIUM CHLORIDE 0.9 % (FLUSH) INJECTION SYRINGE - CONSULT TO CARDIOLOGY - OUTSIDE VENDOR CARDIAC OUTPATIENT EXTENDED RHYTHM RECORDING (WITHOUT TELEMETRY) 2. Heart block - ICD9: 426.9, ICD10: I45.9 Holter not ordered during her admission, will apply a ZIO wall awaiting her cardiology appointment for further evaluation of her current rhythm disturbance. - CONSULT TO CARDIOLOGY - OUTSIDE VENDOR CARDIAC OUTPATIENT EXTENDED RHYTHM RECORDING (WITHOUT TELEMETRY) 3. SOB (shortness of breath) - ICD9: 786.05, ICD10: R06.02 She notes stable shortness of breath on exertion 4. Murmur, cardiac - ICD9: 785.2, ICD10: R01.1 Will need to review echocardiogram results for further recommendations - CONSULT TO CARDIOLOGY 5. Hypertension goal BP (blood pressure) < 150/90 - ICD9: 401.9, ICD10: I10 suboptimal control - Continue current medications - Encouraged sodium restriction, DASH or Mediterranean diet - Recommend regular aerobic exercise 6. Encounter for immunization - ICD9: V03.89, ICD10: Z23 - INFLUENZA VACCINE, PRSV FREE, AGE 65+ YR, HIGH DOSE, QUADRIVALENT (FLUZONE HIGH-DOSE) - POLYBONA-[employer] COVID-19 VACCINE ( SEASON) AGE 12+ YR Ruthie Nova APRN.CNS March 03, 2023 12:56 PM documented in this encounter [facility] 02-23-2023 Note HNO ID: [id number] Author: Omayra Ramírez, RN Service: ? Author Type: Registered Nurse Type: Progress Notes Filed: 02/25/2023 4:27 PM Note Text: TCM Home Visit Referral Source of Stratification: [facility] Hospital Admission Status: Discharged Readmission Risk Score: 13 ARGENIS Score: 9 Patient meets program referral criteria: No Patient does not qualify for High Risk TCM Home Visit program due to: Discharged home, does not meet program criteria TRANSITIONAL CARE MANAGEMENT (TCM) COMMUNITY MONITORING PROGRAM Provider Action/FYI: Attempted outreach to patient for hospital discharge initial outreach. No answer, left a voicemail to return my call at [phone]. Will attempt to outreach to patient again later today or tomorrrow if no return call from patient. SUMMARY: Discharge Network Status: In-Network Discharge Pt discharged from [facility] on 02/22/2023. Admitted for: bradycardia Contact made with patient: No - next outreach attempt will be on next day Outreach ended Omayra Borden RN February 23, 2023 2:04 PM [facility] 02-23-2023 Note Patient Outreach ([facility] [facility] WENDY SHIPLEY ([id number]) 1945 F Date Time Provider Department 02/23/23 OMAYRA RAMÍREZ During your visit today, we recorded the following information about you: Omayra Ramírez RN 02/25/2023 4:27 PM Signed TCM Home Visit Referral Source of Stratification: [facility] Hospital Admission Status: Discharged Readmission Risk Score: 13 ARGENIS Score: 9 Patient meets program referral criteria: No Patient does not qualify for High Risk TCM Home Visit program due to: Discharged home, does not meet program criteria TRANSITIONAL CARE MANAGEMENT (TCM) COMMUNITY MONITORING PROGRAM Provider Action/FYI: Attempted outreach to patient for hospital discharge initial outreach. No answer, left a voicemail to return my call at [phone]. Will attempt to outreach to patient again later today or tomorrrow if no return call from patient. SUMMARY: Discharge Network Status: In-Network Discharge Pt discharged from [facility] on 02/22/2023. Admitted for: bradycardia Contact made with patient: No - next outreach attempt will be on next day Outreach ended Omayra Borden RN February 23, 2023 2:04 PM Allergies As of Date: 02/23/2023 Noted Allergy Reaction LEVAQUIN (LEVOFLOXACIN) 08/30/2008 Comments: Joint pain PAXIL (PAROXETINE HCL) 11/13/2004 SEPTRA (SULFAMETHOXAZOLE-TRIMETHO*2004 ZOLOFT (SERTRALINE HCL) 11/13/2004 Date Reviewed: 02/22/2023 Reviewed by: Raul Pineda RN - Fully Assessed Reason for Visit: Transition Of Care [4074] Cmt: TCM Initial Hospital Discharge 02/22/2023 Prescriptions as of 02/25/2023 - cephALEXin (KEFLEX) 500 mg capsule Take 1 capsule by mouth every 6 hours for 6 days. - amLODIPine (NORVASC) 5 mg tablet Take 1 tablet by mouth once daily. Do not take this medication if your blood pressure is less than 130/80 - lisinopril (ZESTRIL) 10 mg tablet Take 1 tablet by mouth once daily. - metFORMIN ER (GLUCOPHAGE XR) 500 mg 24 hr tablet Take 1 tablet by mouth daily with breakfast. And two tablets in the evening - simvastatin (ZOCOR) 40 mg tablet Take 1 tablet by mouth daily at bedtime. - venlafaxine ER (EFFEXOR XR) 37.5 mg 24 hr capsule Take 37.5 mg daily - loperamide (IMODIUM A-D) 1 mg/7.5 mL oral liquid Take 7.5 mL by mouth every other day. (Per Dr. Charity Gar) - psyllium husk 3.4 gram/5.4 gram powd Take 1 teaspoonful by mouth once daily. In 1 cup water (Namebrand Metamucil) - Rfgznaqyvcapw-Pysexpvy-Caglrq (MULTIVITAMIN 50 PLUS) tab Take 1 tablet by mouth once daily. - naproxen sodium (ANAPROX) 220 mg tablet Take 220 mg by mouth as needed. - ubidecarenone (COENZYME Q10) 100 mg tab Take by mouth. - BIOTIN ORAL Take by mouth once daily. - CLARITIN 10 MG ORAL TAB Take one(1) tablet daily. Problem List As Of Date 02/23/2023 Noted Resolved Adjustment disorder with depressed mood [F43.21]11/13/2004 07/09/2011 Mixed hyperlipidemia [E78.2] 11/13/2004 RHINITIS ALLERGIC, DUE TO POLLEN [J30.1] 03/28/2006 ELEVATED SGOT [R74.01, R74.02] 03/28/2006 07/09/2011 Fatty liver [K76.0] 06/09/2006 Dysmetabolic syndrome X [E88.810] 06/09/2006 11/23/2017 Benign neoplasm of colon [D12.6] 07/15/2006 07/09/2011 Internal hemorrhoids without mention of complic*07/15/2006 01/22/2015 External hemorrhoids without mention of complic*07/15/2006 01/22/2015 DIABETES MELLITUS TYPE II-UNCOMPL [E11.9] 08/03/2006 11/28/2013 Allergic rhinitis, cause unspecified [J30.9] 07/09/2011 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] 07/09/2011 Depressive disorder, not elsewhere classified [*02/26/2008 01/22/2015 Osteopenia [M85.80] 01/08/2011 Tubular adenoma of colon [D12.6] 10/16/2014 03/23/2016 Hypertension goal BP (blood pressure) < 150/90 *10/16/2014 BMI 30.0-30.9,adult [Z68.30] 10/16/2014 Depression [F32.A] 01/22/2015 11/11/2020 Functional diarrhea [K59.1] 03/23/2016 Elevated liver enzymes [R74.8] 03/23/2016 Type 2 diabetes mellitus without complication, *03/24/2016 Colon polyp [K63.5] 09/17/2022 Bradycardia [R00.1] 02/21/2023 Acute decompensated heart failure (HCC) [I50.9] 02/22/2023 Diastolic CHF (HCC) [I50.30] 02/22/2023 Encounter Status:Closed by OMAYRA RAMÍREZ on 02/25/23 [facility] 02-23-2023 Note HNO ID: [id number] Author: Blas Baird Service: ? Author Type: ? Type: Progress Notes Filed: 02/23/2023 10:41 AM Note Text: Transition Care Management (TCM) Inpatient Outreach Provider Action/ TCM - Inpatient Outreach NOTE - The discharge process was completed prior to [facility] making 2nd Inpatient Outreach call. Patient is active on My Chart; a Secure message was sent with the information of the upcoming RN Outreach call. Summary: Patient admitted to [facility] Patient admitted on 02/21/23 Admitted for Bradycardia Contact made with patient: Bettie Alvarez, my name is Blas Baird and I am calling from the [facility] on behalf of Janeth Olivo MD. I am sorry that I missed you today, but your care is important to us, and we would like to touch base with you. The discharge process was completed prior to [facility] making 2nd Inpatient Outreach call. Patient is active on My Chart; a Secure message was sent with the information of the upcoming RN Outreach call. Thank you and have a great day. Outreach ended. Blas Baird February 23, 2023 [facility] 02-23-2023 History of Present illness Narrative Transition Care Management (TCM) Inpatient Outreach Provider Action/FYI TCM - Inpatient Outreach NOTE - The discharge process was completed prior to [facility] making 2nd Inpatient Outreach call. Patient is active on My Chart; a Secure message was sent with the information of the upcoming RN Outreach call. Summary: Patient admitted to [facility] Patient admitted on 02/21/23 Admitted for Bradycardia Contact made with patient: Bettie Alvarez, my name is Blas Baird and I am calling from the [facility] on behalf of Janeth Olivo MD. I am sorry that I missed you today, but your care is important to us, and we would like to touch base with you. The discharge process was completed prior to [facility] making 2nd Inpatient Outreach call. Patient is active on My Chart; a Secure message was sent with the information of the upcoming RN Outreach call. Thank you and have a great day. Outreach ended. Blas Baird February 23, 2023 Transition Care Management (TCM) Inpatient Outreach Provider Action/FYI TCM - Inpatient Outreach NOTE - 1st Call No Contact Summary: Patient admitted to [facility] Patient admitted on 02/21/23 Admitted for Bradycardia Contact made with patient: Bettie Alvarez, my name is Blas Baird and I am calling from the [facility] on behalf of Janeth Olivo MD. I am sorry that I missed you today, but your care is important to us, and we would like to touch base with you. We will attempt to reach you again later today, 02/22/23, tomorrow, 02/23/23 or through a My Chart Secure Patient Message. Thank you and have a great day. Outreach ended. Blas Baird February 22, 2023 documented in this encounter [facility] 02-22-2023 Note HNO ID: [id number] Author: Blas Baird Service: ? Author Type: ? Type: Progress Notes Filed: 02/23/2023 10:41 AM Note Text: Transition Care Management (TCM) Inpatient Outreach Provider Action/FYI TCM - Inpatient Outreach NOTE - 1st Call No Contact Summary: Patient admitted to [facility] Patient admitted on 02/21/23 Admitted for Bradycardia Contact made with patient: Bettie Alvarez, my name is Blas Baird and I am calling from the [facility] on behalf of Janeth Olivo MD. I am sorry that I missed you today, but your care is important to us, and we would like to touch base with you. We will attempt to reach you again later today, 02/22/23, tomorr, 02/23/23 or through a [employer] Secure Patient Message. Thank you and have a great day. Outreach ended. Blas Baird February 22, 2023 [facility] 02-22-2023 Note Patient Outreach ([facility] [place]) WENDY SHIPLEY ([id number]) 1945 F Date Time Provider Department 02/22/23 BLAS BAIRD ([facility] During your visit today, we recorded the following information about you: Blas Baird 02/23/2023 10:41 AM Signed Transition Care Management (TCM) Inpatient Outreach Provider Action/FYI TCM - Inpatient Outreach NOTE - 1st Call No Contact Summary: Patient admitted to [facility] Patient admitted on 02/21/23 Admitted for Bradycardia Contact made with patient: Bettie Alvarez, my name is Blas Baird and I am calling from the [facility] on behalf of Janeth Olivo MD. I am sorry that I missed you today, but your care is important to us, and we would like to touch base with you. We will attempt to reach you again later today, 02/22/23, tomorrow, 02/23/23 or through a [employer] Secure Patient Message. Thank you and have a great day. Outreach ended. Blas Baird February 22, 2023 Blas Baird 02/23/2023 10:41 AM Signed Transition Care Management (TCM) Inpatient Outreach Provider Action/FYI TCM - Inpatient Outreach NOTE - The discharge process was completed prior to [facility] making 2nd Inpatient Outreach call. Patient is active on My Chart; a Secure message was sent with the information of the upcoming RN Outreach call. Summary: Patient admitted to [facility] Patient admitted on 02/21/23 Admitted for Bradycardia Contact made with patient: Bettie Alvarez, my name is Blas Baird and I am calling from the [facility] on behalf of Janeth Olivo MD. I am sorry that I missed you today, but your care is important to us, and we would like to touch base with you. The discharge process was completed prior to [facility] making 2nd Inpatient Outreach call. Patient is active on My Chart; a Secure message was sent with the information of the upcoming RN Outreach call. Thank you and have a great day. Outreach ended. Blas Baird February 23, 2023 Allergies As of Date: 02/22/2023 Noted Allergy Reaction LEVAQUIN (LEVOFLOXACIN) 08/30/2008 Comments: Joint pain PAXIL (PAROXETINE HCL) 11/13/2004 SEPTRA (SULFAMETHOXAZOLE-TRIMETHO*2004 ZOLOFT (SERTRALINE HCL) 11/13/2004 Date Reviewed: 02/22/2023 Reviewed by: Raul Pineda, RN - Fully Assessed Reason for Visit: Transition Of Care [4074] Cmt: TCM - Inpatient Outreach Prescriptions as of 02/23/2023 - cephALEXin (KEFLEX) 500 mg capsule Take 1 capsule by mouth every 6 hours for 6 days. - amLODIPine (NORVASC) 5 mg tablet Take 1 tablet by mouth once daily. Do not take this medication if your blood pressure is less than 130/80 - lisinopril (ZESTRIL) 10 mg tablet Take 1 tablet by mouth once daily. - metFORMIN ER (GLUCOPHAGE XR) 500 mg 24 hr tablet Take 1 tablet by mouth daily with breakfast. And two tablets in the evening - simvastatin (ZOCOR) 40 mg tablet Take 1 tablet by mouth daily at bedtime. - venlafaxine ER (EFFEXOR XR) 37.5 mg 24 hr capsule Take 37.5 mg daily - loperamide (IMODIUM A-D) 1 mg/7.5 mL oral liquid Take 7.5 mL by mouth every other day. (Per Dr. Charity Gar) - psyllium husk 3.4 gram/5.4 gram powd Take 1 teaspoonful by mouth once daily. In 1 cup water (Namebrand Metamucil) - Lcbnisdiisucg-Acpiwcwq-Qafcpm (MULTIVITAMIN 50 PLUS) tab Take 1 tablet by mouth once daily. - naproxen sodium (ANAPROX) 220 mg tablet Take 220 mg by mouth as needed. - ubidecarenone (COENZYME Q10) 100 mg tab Take by mouth. - BIOTIN ORAL Take by mouth once daily. - CLARITIN 10 MG ORAL TAB Take one(1) tablet daily. Problem List As Of Date 02/22/2023 Noted Resolved Adjustment disorder with depressed mood [F43.21]11/13/2004 07/09/2011 Mixed hyperlipidemia [E78.2] 11/13/2004 RHINITIS ALLERGIC, DUE TO POLLEN [J30.1] 03/28/2006 ELEVATED SGOT [R74.01, R74.02] 03/28/2006 07/09/2011 Fatty liver [K76.0] 06/09/2006 Dysmetabolic syndrome X [E88.810] 06/09/2006 11/23/2017 Benign neoplasm of colon [D12.6] 07/15/2006 07/09/2011 Internal hemorrhoids without mention of complic*07/15/2006 01/22/2015 External hemorrhoids without mention of complic*07/15/2006 01/22/2015 DIABETES MELLITUS TYPE II-UNCOMPL [E11.9] 08/03/2006 11/28/2013 Allergic rhinitis, cause unspecified [J30.9] 07/09/2011 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 [facility] 02-21-2023 Note HNO ID: [id number] Author: Delisa Colunga RT(Demetrius) Service: ? Author Type: Technologist Type: Progress Notes Filed: 02/21/2023 9:17 PM Note Text: Radiology Service Progress Note PATIENT NAME: Wendy Shipley DATE OF SERVICE: February 21, 2023 TIME: 9:17 PM PATIENT IDENTITY VERIFICATION COMPLETED USING TWO (2) IDENTIFIERS: Name and Date of confirmed by patient verbally and Name and Date of confirmed by identification band. FALL SCREENING: Has the patient had 2 falls in the last year or 1 fall with injury or currently using an Ambulatory Assistive Device (Walker, Cane, Wheelchair, Crutches, etc.)? Emergency Room Patient: Screened in ED PATIENT GENDER DATA: Female. status: : No status: NO. PATIENT RELEVANT IMPLANT DATA REVIEWED: Not Applicable RADIOLOGY DEPARTMENT: General X-ray: Exam(s) Completed: Chest X-Ray PERIPHERAL IV DATA: Not applicable SIGNED BY: RT Norma(Demetrius) February 21, 2023 9:17 PM [facility] 02-21-2023 Note HNO ID: [id number] Author: Ruthie Nova APRN.BR[employer]IST[employer] SUPERVISOR Service: ? Author Type: Nurse Specialist Type: Progress Notes Filed: 02/21/2023 4:39 PM Note Text: SUBJECTIVE: RSV Vaccine(1 - 1-dose 60+ series) Never done BP Controlled (<130/80) due on 06/11/2022 Dilated Retinal Exam due on 08/11/2022 Influenza Vaccine(1) due on 11/19/2022 Covid-19 Vaccine( season) due on 11/19/2022 Diabetic Foot Exam due on 12/04/2022 HPI Wendy Shipley is a 77 year old female. Returns to clinic for routine visit. ACTIVE PROBLEM LIST Mixed Hyperlipidemia RHINITIS ALLERGIC, DUE TO POLLEN Fatty Liver Osteopenia Hypertension goal BP (blood pressure) < 150/90 Bmi 30.0-30.9,Adult Functional Diarrhea Elevated Liver Enzymes Type 2 Diabetes Mellitus Without Complication, Without Long-Term Current Use of Insulin (Hcc) Colon Polyp Since last seen she had an urgent care visit November 24, 2022 for rib pain on the left side. Chest x-ray at that time was negative. Presents today for routine visit. She notes intermittent shortness of breath recently. Typically with exertion. Reports no change in functional capacity. Without complaint of left-sided chest pain or rib pain today. No palpitations. Occasional dizziness and lightheadedness is present. No ankle swelling. No presyncope or syncope. Notes no change in ability to walk flat surface. Able to take 1 flight of stairs without chest pain or shortness of breath. HTN: Without headache, chest pain, palpitations, dyspnea, peripheral edema, orthopnea, fatigue and PND. Last 14 Encounter BP Readings: Date: BP: 02/21/2023 165/71[bp average[ 11/24/2022 132/78 09/17/2022 130/70 02/20/2022 138/74 12/04/2021 136/72 06/11/2021 136/68 04/13/2021 136/74 12/12/2020 122/62 12/02/2020 123/62 11/19/2020 136/72 11/11/2020 136/70 10/28/2020 154/78 10/28/2020 136/84 10/21/2020 156/68 DIABETES MELLITUS: No recent check of BS at home. No report of excessive thirst or increased frequency of urination, chest pain or dyspnea , numbness, tingling or pain in extremities, new or unusual visual symptoms, low sugar/hypoglycemic reactions, weight loss/gain, lightheadedness/dizziness and bowel changes/loose stools. Patient's last HgA1C was Hemoglobin A1C (%) Date Value 09/28/2022 7.0 12/04/2021 6.6 11/11/2020 6.9 01/22/2020 6.4 ) Hyperlipidemia. Ms. Shipley reports doing well on current therapy Her most recent lipid panels are: Cholesterol, Total (mg/dL) Date Value 09/28/2022 148 06/18/2021 145 01/22/2020 143 12/13/2018 148 Total Cholesterol, Nonfasting (mg/dL) Date Value 11/11/2020 136 HDL Cholesterol (mg/dL) Date Value 09/28/2022 68 06/18/2021 63 01/22/2020 65 12/13/2018 64 HDL Cholesterol, Nonfasting (mg/dL) Date Value 11/11/2020 59 LDL Cholesterol (mg/dL) Date Value 09/28/2022 61 06/18/2021 61 01/22/2020 57 12/13/2018 62 LDL Cholesterol, Nonfasting (mg/dL) Date Value 11/11/2020 49 Triglyceride (mg/dL) Date Value 09/28/2022 94 06/18/2021 106 01/22/2020 107 12/13/2018 111 Triglycerides, Nonfasting (mg/dL) Date Value 11/11/2020 138 Review of Systems Constitutional: Negative. Respiratory: Negative. Cardiovascular: Negative. Endocrine: Negative for polydipsia and polyphagia. Objective BP 165/71 Pulse (!) 50 Resp 16 Wt 77.6 kg (171 lb) SpO2 93% BMI 29.82 kg/m? Physical Exam Constitutional: Appearance: Normal appearance. HENT: Head: Normocephalic and atraumatic. Eyes: Conjunctiva/sclera: Conjunctivae normal. Neck: Thyroid: No thyromegaly. Vascular: No carotid bruit or JVD. Cardiovascular: Rate and Rhythm: Regular rhythm. Bradycardia present. Heart sounds: Murmur (RUSB) heard. Pulmonary: Effort: Pulmonary effort is normal. Breath sounds: Normal breath sounds. Abdominal: General: Bowel sounds are normal. Palpations: Abdomen is soft. Musculoskeletal: Cervical back: No muscular tenderness. Right lower leg: No edema. Left lower leg: No edema. Lymphadenopathy: Cervical: No cervical adenopathy. Skin: General: Skin is warm and dry. Neurological: General: No focal deficit present. Mental Status: She is alert and oriented to person, place, and time. ALLERGIES Allergen Reactions Levaquin [Levofloxa* Joint pain Paxil [Paroxetine H* Septra [Sulfamethox* Zoloft [Sertraline * Medications: lisinopril (ZESTRIL) 10 mg tablet Take 1 tablet by mouth once daily. metFORMIN ER (GLUCOPHAGE XR) 500 mg 24 hr tablet Take 1 tablet by mouth daily with breakfast. And two tablets in the evening simvastatin (ZOCOR) 40 mg tablet Take 1 tablet by mouth daily at bedtime. venlafaxine ER (EFFEXOR XR) 37.5 mg 24 hr capsule Take 37.5 mg daily loperamide (IMODIUM A-D) 1 mg/7.5 mL oral liquid Take 7.5 mL by mouth every other day. (Per Dr. Charity Gar) psyllium husk 3.4 gram/5.4 gram powd Take 1 teaspoonful by mouth once daily. In 1 cup water (Namebr (more content not included)... [facility] 11-24-2022 Note HNO ID: [id number] Author: Mary Argueta RT(R) Service: Radiology Author Type: Technologist Type: Progress Notes Filed: 11/24/2022 2:36 PM Note Text: Radiology Service Progress Note PATIENT NAME: Wendy Shipley DATE OF SERVICE: November 24, 2022 TIME: 2:27 PM PATIENT IDENTITY VERIFICATION COMPLETED USING TWO (2) IDENTIFIERS: Name and Date of confirmed by patient verbally. FALL SCREENING: Has the patient had 2 falls in the last year or 1 fall with injury or currently using an Ambulatory Assistive Device (Walker, Cane, Wheelchair, Crutches, etc.)? No PATIENT GENDER DATA: Female. status: : No status: NO. PATIENT RELEVANT IMPLANT DATA REVIEWED: Not Applicable RADIOLOGY DEPARTMENT: General X-ray: Exam(s) Completed: Rib X-Ray: Left PERIPHERAL IV DATA: Not applicable SIGNED BY: RT Anabella(R) November 24, 2022 2:27 PM [facility] 11-24-2022 Note HNO ID: [id number] Author: Sherly Leong APRN.KETTLE [employer] COOK OPERATOR Service: ? Author Type: Nurse Practitioner Type: Progress Notes Filed: 11/24/2022 3:18 PM Note Text: This note was created using NoteWriter. Subjective Wendy Shipley is a 77 year old female. 77 year old female with PMH DM, HTN, hyperlipidemia and obesity presents for complaints of illness. Acute onset one week ago States she was in [place] at her sons. Endorses she was assisting her son with moving. She tripped and ultimately fell onto left side. Hit grass She presents with complaints of left rib pain. Denies striking her head or LOC Denies neck pain or back pain. Denies SOB or dyspnea Denies that the fall was related to dizziness or syncope. Denies blood thinners. Has been using Naprosyn The history is provided by the patient. No language instructor was used. Fall Incident onset: 1 week ago. The fall occurred while walking. She fell from a height of 3 to 5 ft. She landed on Grass. There was no blood loss. Point of impact: left trunk. Pain location: left ribs. The pain is at a severity of 6/10. The pain is moderate. She was Ambulatory at the scene. There was No entrapment after the fall. There was No drug use involved in the accident. There was No alcohol use involved in the accident. Pertinent negatives include no visual change, no fever, no numbness, no abdominal pain, no bowel incontinence, no nausea, no vomiting, no hematuria, no headaches, no hearing loss, no loss of consciousness and no tingling. The symptoms are aggravated by activity. She has tried NSAIDs for the symptoms. The treatment provided mild relief. PAST MEDICAL HISTORY Diagnosis Date - Allergic rhinitis, cause unspecified - Benign neoplasm of colon - Cancer (HCC) skin - Chronic depressive personality disorder - Depression 01/22/2015 - Diabetes mellitus without mention of complication Diabetes mellitus - Diverticulosis of colon (without mention of hemorrhage) - High cholesterol - Hypertension - Tubular adenoma of colon 10/16/2014 PAST SURGICAL HISTORY Procedure Laterality Date - ABDOMINAL SURGERY HX - CHOLECYSTECTOMY 2001 - COLONOSCOPY FLX DX W/COLLJ SPEC WHEN PFRMD 07/15/2006 Colonoscopy - COLONOSCOPY FLX DX W/COLLJ SPEC WHEN PFRMD 04/16/2010 Colonoscopy - COLONOSCOPY FLX DX W/COLLJ SPEC WHEN PFRMD 02/09/2016 Colonoscopy - COLONOSCOPY FLX DX W/COLLJ SPEC WHEN PFRMD 12/17/2020 - LIG/TRNSXJ FLP TUBE ABDL/VAG APPR UNI/BI 1982 Tubal ligation - PAST SURGICAL HISTORY OF bunions right and left foot - SKIN BIOPSY HX ALLERGIES Levaquin [Levofloxacin], Paxil [Paroxetine Hcl], Septra [Sulfamethoxazole-Trimethoprim], and Zoloft [Sertraline Hcl] MEDICATIONS - lisinopril (ZESTRIL) 10 mg tablet Take 1 tablet by mouth once daily. - metFORMIN ER (GLUCOPHAGE XR) 500 mg 24 hr tablet Take 1 tablet by mouth daily with breakfast. And two tablets in the evening - simvastatin (ZOCOR) 40 mg tablet Take 1 tablet by mouth daily at bedtime. - venlafaxine ER (EFFEXOR XR) 37.5 mg 24 hr capsule Take 37.5 mg daily - loperamide (IMODIUM A-D) 1 mg/7.5 mL oral liquid Take 7.5 mL by mouth every other day. (Per Dr. Charity Gar) - psyllium husk 3.4 gram/5.4 gram powd Take 1 teaspoonful by mouth once daily. In 1 cup water (Namebrand Metamucil) - Ihmmqyjzkhihy-Hheyplhz-Satrnp (MULTIVITAMIN 50 PLUS) tab Take 1 tablet by mouth once daily. - naproxen sodium (ANAPROX) 220 mg tablet Take 220 mg by mouth as needed. - ubidecarenone (COENZYME Q10) 100 mg tab Take by mouth. - BIOTIN ORAL Take by mouth once daily. - CLARITIN 10 MG ORAL TAB Take one(1) tablet daily. - cyclobenzaprine (FLEXERIL) 10 mg tablet Take 1 tablet by mouth three times daily as needed for muscle spasm. - methylPREDNISolone (MEDROL, DEEP,) 4 mg Dose-Pack Follow dosing instructions, take with food. FAMILY HISTORY Problem Relation Age of Onset - Coronary Artery Disease Mother not premature - Cancer Mother uterine - Alzheimer's Disease Mother - Coronary Artery Disease Father Not premature - Diabetes Father Social History Tobacco Use - Smoking status: Never - Smokeless tobacco: Never Substance Use Topics - Alcohol use: Yes Alcohol/week: 12.5 standard drinks of alcohol Types: 5 Glasses of Wine (5oz) per week Comment: glass of wine 2 times per week - Drug use: No Review of Systems Constitutional: Negative for activity change, appetite change, chills and fever. Eyes: Negative for pain, discharge, redness and itching. Respiratory: Negative for apnea, choking and chest tightness. Cardiovascular: Negative for chest pain and leg swelling. Gastrointestinal: Negative for abdominal pain, bowel incontinence, nausea and vomiting. Genitourinary: Negative for hematuria. Skin: Negative for color change, pallor and rash. Allergic/Immunologic: Negative for environmental allergies, food allergies and immunocompromised state. Neurological: Negative for ti (more content not included)... [facility] 11-24-2022 History of Present illness Narrative This note was created using NoteWriter. Subjective Wendy Shipley is a 77 year old female. 77 year old female with PMH DM, HTN, hyperlipidemia and obesity presents for complaints of illness. Acute onset one week ago States she was in [place] at her sons. Endorses she was assisting her son with moving. She tripped and ultimately fell onto left side. Hit grass She presents with complaints of left rib pain. Denies striking her head or LOC Denies neck pain or back pain. Denies SOB or dyspnea Denies that the fall was related to dizziness or syncope. Denies blood thinners. Has been using Naprosyn The history is provided by the patient. No language instructor was used. Fall Incident onset: 1 week ago. The fall occurred while walking. She fell from a height of 3 to 5 ft. She landed on Grass. There was no blood loss. Point of impact: left trunk. Pain location: left ribs. The pain is at a severity of 6/10. The pain is moderate. She was Ambulatory at the scene. There was No entrapment after the fall. There was No drug use involved in the accident. There was No alcohol use involved in the accident. Pertinent negatives include no visual change, no fever, no numbness, no abdominal pain, no bowel incontinence, no nausea, no vomiting, no hematuria, no headaches, no hearing loss, no loss of consciousness and no tingling. The symptoms are aggravated by activity. She has tried NSAIDs for the symptoms. The treatment provided mild relief. PAST MEDICAL HISTORY Diagnosis Date Allergic rhinitis, cause unspecified Benign neoplasm of colon Cancer (HCC) skin Chronic depressive personality disorder Depression 01/22/2015 Diabetes mellitus without mention of complication Diabetes mellitus Diverticulosis of colon (without mention of hemorrhage) High cholesterol Hypertension Tubular adenoma of colon 10/16/2014 PAST SURGICAL HISTORY Procedure Laterality Date ABDOMINAL SURGERY HX CHOLECYSTECTOMY 2002 COLONOSCOPY FLX DX W/COLLJ SPEC WHEN PFRMD 07/15/2006 Colonoscopy COLONOSCOPY FLX DX W/COLLJ SPEC WHEN PFRMD 04/16/2010 Colonoscopy COLONOSCOPY FLX DX W/COLLJ SPEC WHEN PFRMD 02/09/2016 Colonoscopy COLONOSCOPY FLX DX W/COLLJ SPEC WHEN PFRMD 12/17/2020 LIG/TRNSXJ FLP TUBE ABDL/VAG APPR UNI/BI 1982 Tubal ligation PAST SURGICAL HISTORY OF bunions right and left foot SKIN BIOPSY HX ALLERGIES Levaquin [Levofloxacin], Paxil [Paroxetine Hcl], Septra [Sulfamethoxazole-Trimethoprim], and Zoloft [Sertraline Hcl] MEDICATIONS lisinopril (ZESTRIL) 10 mg tablet Take 1 tablet by mouth once daily. metFORMIN ER (GLUCOPHAGE XR) 500 mg 24 hr tablet Take 1 tablet by mouth daily with breakfast. And two tablets in the evening simvastatin (ZOCOR) 40 mg tablet Take 1 tablet by mouth daily at bedtime. venlafaxine ER (EFFEXOR XR) 37.5 mg 24 hr capsule Take 37.5 mg daily loperamide (IMODIUM A-D) 1 mg/7.5 mL oral liquid Take 7.5 mL by mouth every other day. (Per Dr. Charity Gar) psyllium husk 3.4 gram/5.4 gram powd Take 1 teaspoonful by mouth once daily. In 1 cup water (Namebrand Metamucil) Yszxtqxhxoqzr-Agvlbndj-Hutdhu (MULTIVITAMIN 50 PLUS) tab Take 1 tablet by mouth once daily. naproxen sodium (ANAPROX) 220 mg tablet Take 220 mg by mouth as needed. ubidecarenone (COENZYME Q10) 100 mg tab Take by mouth. BIOTIN ORAL Take by mouth once daily. CLARITIN 10 MG ORAL TAB Take one(1) tablet daily. cyclobenzaprine (FLEXERIL) 10 mg tablet Take 1 tablet by mouth three times daily as needed for muscle spasm. methylPREDNISolone (MEDROL, DEEP,) 4 mg Dose-Pack Follow dosing instructions, take with food. FAMILY HISTORY Problem Relation Age of Onset Coronary Artery Disease Mother not premature Cancer Mother uterine Alzheimer's Disease Mother Coronary Artery Disease Father Not premature Diabetes Father Social History Tobacco Use Smoking status: Never Smokeless tobacco: Never Substance Use Topics Alcohol use: Yes Alcohol/week: 12.5 standard drinks of alcohol Types: 5 Glasses of Wine (5oz) per week Comment: glass of wine 2 times per week Drug use: No Review of Systems Constitutional: Negative for activity change, appetite change, chills and fever. Eyes: Negative for pain, discharge, redness and itching. Respiratory: Negative for apnea, choking and chest tightness. Cardiovascular: Negative for chest pain and leg swelling. Gastrointestinal: Negative for abdominal pain, bowel incontinence, nausea and vomiting. Genitourinary: Negative for hematuria. Skin: Negative for color change, pallor and rash. Allergic/Immunologic: Negative for environmental allergies, food allergies and immunocompromised state. Neurological: Negative for tingling, loss of consciousness, numbness and headaches. Hematological: Negative for adenopathy. Does not bruise/bleed easily. Psychiatric/Behavioral: Negative for agitation and behavioral problems. Objective BP 132/78 Pulse 98 Temp 37 C (98.6 F) (Tympanic) Resp 18 Wt 74.4 kg (164 lb) SpO2 94% BMI 28.60 kg/m Physical Exam Vitals and nursing note reviewed. Constitutional: General: She is not in acute distress. Appearance: Normal appearance. She is obese. She is not ill-appearing, toxic-appearing or diaphoretic. HENT: Head: Normocephalic and atraumatic. Right Ear: Ear canal and external ear normal. Left Ear: Ear canal and external ear normal. Nose: Nose normal. No congestion or rhinorrhea. Mouth/Throat: Mouth: Mucous membranes are moist. Pharynx: No oropharyngeal exudate or posterior oropharyngeal erythema. Eyes: General: Right eye: No discharge. Left eye: No discharge. Extraocular Movements: Extraocular movements intact. Conjunctiva/sclera: Conjunctivae normal. Pupils: Pupils are equal, round, and reactive to light. Cardiovascular: Rate and Rhythm: Normal rate and regular rhythm. Pulses: Normal pulses. Heart sounds: Normal heart sounds. No murmur heard. No friction rub. Pulmonary: Effort: Pulmonary effort is normal. No respiratory distress. Breath sounds: Normal breath sounds. No stridor. No wheezing, rhonchi or rales. Chest: Chest wall: Tenderness (Diffuse TTP noted to left ribs 8 through 12. NO ecchymosis. NO flail chest. Lungs CTA) present. Abdominal: General: Abdomen is flat. There is no distension. Palpations: Abdomen is soft. There is no mass. Tenderness: There is no abdominal tenderness. There is no right CVA tenderness, left CVA tenderness, guarding or rebound. Hernia: No hernia is present. Musculoskeletal: General: No swelling, tenderness, deformity or signs of injury. Normal range of motion. Cervical back: Normal range of motion and neck supple. No rigidity. Right lower leg: No edema. Left lower leg: No edema. Lymphadenopathy: Cervical: No cervical adenopathy. Skin: General: Skin is warm and dry. Capillary Refill: Capillary refill takes less than 2 seconds. Coloration: Skin is not jaundiced or pale. Findings: No bruising, erythema, lesion or rash. Neurological: General: No focal deficit present. Mental Status: She is alert and oriented to person, place, and time. Cranial Nerves: No cranial nerve deficit. Sensory: No sensory deficit. Motor: No weakness. Coordination: Coordination normal. Gait: Gait normal. Psychiatric: Mood and Affect: Mood normal. Behavior: Behavior normal. Thought Content: Thought content normal. Judgment: Judgment normal. Assessment and Plan ASSESSMENT/PLAN: 1. Rib pain on left side - ICD9: 786.50, ICD10: R07.81 (primary diagnosis) Atypical chest pain, symptoms are not consistent with cardiac ischemia due to pleuritic nature of pain, localization of the pain, and history of trauma possible etiology include Costochondritis/chest wall pain, musculoskeletal, and rib fracture. - Chest X-ray today. My reading: normal, no signs of acute disease. Radiologist report negative for same. - Oxygen saturation 98% - Follow up 2 days - XR RIBS/CHEST 3V AP RIB/OBLS/CXR LEFT - CYCLOBENZAPRINE 10 MG TABLET - METHYLPREDNISOLONE 4 MG TABLETS IN A DOSE PACK 2. Fall on same level from slipping, tripping or stumbling, initial encounter - ICD9: E885.9, ICD10: W01.0XXA One week ago Mechanical No red flags - XR RIBS/CHEST 3V AP RIB/OBLS/CXR LEFT Sherly Leong APRN.KETTLE [employer]OOK OPERATOR documented in this encounter [facility] 10-26-2022 Miscellaneous Notes I did address platelet count in my note. Noted that was only a few points below normal. 5 to 6 years ago was in low 200s range. 169 to 183 the past few years till recent one being slightly low at 147. Her last US abdomen was done December last year and did not show and enlargement of spleen. Would continue to monitor labs and consider US (including spleen) again in December. Can refer to GI as well as rolling attendant as indicated if platelet counts drop more. Can add CBC with platelets to do sooner than 6 month follow up if prefers. Patient did review MyChart response by Dr. Olivo, she does not want to do elastography test at this time, will discuss at next appt. Patient's concern was her Platelets, she would like the doctor to review. From Patient's prospective, her platelets are way down. She is thinking about having her hammer toe repair. Please review and advise. If patient decides wants elastography test done, verify no ipmlanted devices (pacemaker, nerve stimulator, etc) documented in this encounter [facility] 09-17-2022 Note HNO ID: [id number] Author: Janeth Olivo MD Service: ? Author Type: Physician Type: Progress Notes Filed: 09/17/2022 6:23 PM Note Text: This note was created using [employer]. Subjective Wendy Shipley is a 77 year old female. Patient presents with: Established Patient: Diabetic follow up SUBJECTIVE: Wendy Shipley is a 77 year old year old lady here today for follow up appointment for review of medical conditions. Doing well on current meds. Stays hydrated. Sometimes dizzy at night if gets up once in a while. Does not have HCDPOA or LW but spouse is her surrogate decision maker and son would be first alternate Depression Screening 06/16/2018 11/11/2020 12/04/2021 09/17/2022 PHQ-2 Score 0 0 0 0 PHQ-9 Score - 0 - - PIYUSH-2 Total Score - - - - PIYUSH-7 Total Score - - - - Depression screening tool completed and reviewed. Based on score and interview, patient is already diagnosed with depression. Screening tool discussed with patient, and I recommended continuing current plan of care. 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 (Per Dr. Charity Gar) psyllium husk 3.4 gram/5.4 gram powd Take 1 teaspoonful by mouth once daily. In 1 cup water (Namebrand Metamucil) Qskxgvfjcmbto-Bqdzqrau-Hdihnm (MULTIVITAMIN 50 PLUS) tab Take 1 tablet by mouth once daily. naproxen sodium (ANAPROX) 220 mg tablet Take 220 mg by mouth as needed. ubidecarenone (COENZYME Q10) 100 mg tab Take by mouth. BIOTIN ORAL Take by mouth once daily. CLARITIN 10 MG ORAL TAB Take one(1) tablet daily. lisinopril (ZESTRIL) 10 mg tablet Take 1 tablet by mouth once daily. metFORMIN ER (GLUCOPHAGE XR) 500 mg 24 hr tablet Take 1 tablet by mouth daily with breakfast. And two tablets in the evening simvastatin (ZOCOR) 40 mg tablet Take 1 tablet by mouth daily at bedtime. venlafaxine ER (EFFEXOR XR) 37.5 mg 24 hr capsule Take 37.5 mg daily No current facility-administered medications for this visit. Review of Systems Objective BP 136/68 Pulse 95 Temp 37.3 ?C (99.2 ?F) Resp 18 Wt 75.3 kg (166 lb) SpO2 96% BMI 28.94 kg/m? Last 5 Encounter Wt Readings: Date: Wt: 09/17/2022 75.3 kg (166 lb) 02/20/2022 75.5 kg (166 lb 6.4 oz) 12/04/2021 73 kg (161 lb) 06/11/2021 73.9 kg (163 lb) 04/13/2021 74.8 kg (165 lb) No waist measurement recorded Estimated body mass index is 28.94 kg/m? as calculated from the following: Height as of 11/14/17: 161.3 cm (5' 3.5 ). Weight as of this encounter: 75.3 kg (166 lb). Last 5 Encounter BP Readings: Date: BP: 09/17/2022 136/68 02/20/2022 138/74 12/04/2021 136/72 06/11/2021 136/68 04/13/2021 136/74 09/17/22 1655 09/17/22 1754 BP: 136/68 130/70 Pulse: 95 Resp: 18 Temp: 37.3 ?C (99.2 ?F) SpO2: 96% Weight: 75.3 kg (166 lb) Physical Exam Constitutional: Appearance: Normal appearance. HENT: Head: Normocephalic. Eyes: Conjunctiva/sclera: Conjunctivae normal. Cardiovascular: Rate and Rhythm: Normal rate and regular rhythm. Heart sounds: Normal heart sounds. Pulmonary: Effort: Pulmonary effort is normal. Breath sounds: Normal breath sounds. Skin: General: Skin is warm and dry. Neurological: General: No focal deficit present. Mental Status: She is alert and oriented to person, place, and time. Psychiatric: Attention and Perception: Attention and perception normal. Mood and Affect: Mood and affect normal. Speech: Speech normal. Behavior: Behavior normal. Thought Content: Thought content normal. Cognition and Memory: Cognition and memory normal. Judgment: Judgment normal. Assessment and Plan Encounter Diagnosis ICD-10-CM 1. Type 2 diabetes mellitus without complication, without long-term current use of insulin (HCC) E11.9 lisinopril (ZESTRIL) 10 mg tablet metFORMIN ER (GLUCOPHAGE XR) 500 mg 24 hr tablet HGB A1C COMP METABOLIC PANEL ALBUMIN/CREAT RATIO RND UR 2. Hypertension goal BP (blood pressure) < 150/90 I10 lisinopril (ZESTRIL) 10 mg tablet COMP METABOLIC PANEL CBC 3. Mixed hyperlipidemia E78.2 simvastatin (ZOCOR) 40 mg tablet LIPID PANEL BASIC 4. Depression, unspecified depression type F32.A venlafaxine ER (EFFEXOR XR) 37.5 mg 24 hr capsule 5. Polyp of colon, unspecified part of colon, unspecified type K63.5 Above issues addressed with patient. Patient involved in shared decision making for management of medical issues. History and medications reviewed. [facility] updated as needed Refills and/or prescriptions taken care of and (more content not included)... [facility] 09-17-2022 History of Present illness Narrative This note was created using [employer]. Subjective Wendy Shipley is a 77 year old female. Patient presents with: Established Patient: Diabetic follow up SUBJECTIVE: Wendy Shipley is a 77 year old year old lady here today for follow up appointment for review of medical conditions. Doing well on current meds. Stays hydrated. Sometimes dizzy at night if gets up once in a while. Does not have HCDPOA or LW but spouse is her surrogate decision maker and son would be first alternate Depression Screening 06/16/2018 11/11/2020 12/04/2021 09/17/2022 PHQ-2 Score 0 0 0 0 PHQ-9 Score - 0 - - PIYUSH-2 Total Score - - - - PIYUSH-7 Total Score - - - - Depression screening tool completed and reviewed. Based on score and interview, patient is already diagnosed with depression. Screening tool discussed with patient, and I recommended continuing current plan of care. 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 (Per Dr. Charity Gar) psyllium husk 3.4 gram/5.4 gram powd Take 1 teaspoonful by mouth once daily. In 1 cup water (Namebrand Metamucil) Ojvclbkejmzdo-Fpijgwfn-Lvrbaw (MULTIVITAMIN 50 PLUS) tab Take 1 tablet by mouth once daily. naproxen sodium (ANAPROX) 220 mg tablet Take 220 mg by mouth as needed. ubidecarenone (COENZYME Q10) 100 mg tab Take by mouth. BIOTIN ORAL Take by mouth once daily. CLARITIN 10 MG ORAL TAB Take one(1) tablet daily. lisinopril (ZESTRIL) 10 mg tablet Take 1 tablet by mouth once daily. metFORMIN ER (GLUCOPHAGE XR) 500 mg 24 hr tablet Take 1 tablet by mouth daily with breakfast. And two tablets in the evening simvastatin (ZOCOR) 40 mg tablet Take 1 tablet by mouth daily at bedtime. venlafaxine ER (EFFEXOR XR) 37.5 mg 24 hr capsule Take 37.5 mg daily No current facility-administered medications for this visit. Review of Systems Objective BP 136/68 Pulse 95 Temp 37.3 C (99.2 F) Resp 18 Wt 75.3 kg (166 lb) SpO2 96% BMI 28.94 kg/m Last 5 Encounter Wt Readings: Date: Wt: 09/17/2022 75.3 kg (166 lb) 02/20/2022 75.5 kg (166 lb 6.4 oz) 12/04/2021 73 kg (161 lb) 06/11/2021 73.9 kg (163 lb) 04/13/2021 74.8 kg (165 lb) No waist measurement recorded Estimated body mass index is 28.94 kg/m as calculated from the following: Height as of 11/14/17: 161.3 cm (5' 3.5 ). Weight as of this encounter: 75.3 kg (166 lb). Last 5 Encounter BP Readings: Date: BP: 09/17/2022 136/68 02/20/2022 138/74 12/04/2021 136/72 06/11/2021 136/68 04/13/2021 136/74 09/17/22 1655 09/17/22 1754 BP: 136/68 130/70 Pulse: 95 Resp: 18 Temp: 37.3 C (99.2 F) SpO2: 96% Weight: 75.3 kg (166 lb) Physical Exam Constitutional: Appearance: Normal appearance. HENT: Head: Normocephalic. Eyes: Conjunctiva/sclera: Conjunctivae normal. Cardiovascular: Rate and Rhythm: Normal rate and regular rhythm. Heart sounds: Normal heart sounds. Pulmonary: Effort: Pulmonary effort is normal. Breath sounds: Normal breath sounds. Skin: General: Skin is warm and dry. Neurological: General: No focal deficit present. Mental Status: She is alert and oriented to person, place, and time. Psychiatric: Attention and Perception: Attention and perception normal. Mood and Affect: Mood and affect normal. Speech: Speech normal. Behavior: Behavior normal. Thought Content: Thought content normal. Cognition and Memory: Cognition and memory normal. Judgment: Judgment normal. Assessment and Plan Encounter Diagnosis ICD-10-CM 1. Type 2 diabetes mellitus without complication, without long-term current use of insulin (HCC) E11.9 lisinopril (ZESTRIL) 10 mg tablet metFORMIN ER (GLUCOPHAGE XR) 500 mg 24 hr tablet HGB A1C COMP METABOLIC PANEL ALBUMIN/CREAT RATIO RND UR 2. Hypertension goal BP (blood pressure) < 150/90 I10 lisinopril (ZESTRIL) 10 mg tablet COMP METABOLIC PANEL CBC 3. Mixed hyperlipidemia E78.2 simvastatin (ZOCOR) 40 mg tablet LIPID PANEL BASIC 4. Depression, unspecified depression type F32.A venlafaxine ER (EFFEXOR XR) 37.5 mg 24 hr capsule 5. Polyp of colon, unspecified part of colon, unspecified type K63.5 Above issues addressed with patient. Patient involved in shared decision making for management of medical issues. History and medications reviewed. Epic updated as needed Refills and/or prescriptions taken care of and meds adjusted as indicated after reviewed history, exam and labs. Health Maintenance reviewed. Updated record and/or ordered tests as recorded. Reviewed prior colonoscopy dates and results. Next due November 2025 per notes from General Surgery. History of colon polyps noted. Encouraged on efforts at healthy diet and regular exercise and adequate sleep. Noted that labs before could get done for this appointment (were ordered for a prior appointment that was cancelled). Will get labs in next couple weeks or so. Standing orders placed. BP control fair. Continue present management. Has done well on current med for lipids. Adjust dose as needed. Janeht Olivo MD documented in this encounter [facility] 09-08-2022 Note HNO ID: [id number] Author: Mary Gonsalez [employer] Service: ? Author Type: Visual Designer Type: Progress Notes Filed: 09/08/2022 11:50 AM Note Text: Radiology Service Progress Note PATIENT NAME: Wendy Shipley DATE OF SERVICE: September 08, 2022 TIME: 11:23 AM PATIENT IDENTITY VERIFICATION COMPLETED USING TWO (2) IDENTIFIERS: Name and Date of confirmed by patient verbally. FALL SCREENING: Has the patient had 2 falls in the last year or 1 fall with injury or currently using an Ambulatory Assistive Device (Walker, Cane, Wheelchair, Crutches, etc.)? No PATIENT GENDER DATA: Female. status: : No status: NO. PATIENT RELEVANT IMPLANT DATA REVIEWED: Not Applicable RADIOLOGY DEPARTMENT: Mammography PERIPHERAL IV DATA: Not applicable SIGNED BY: Mario Gonsalezo [employer] September 08, 2022 11:23 AM [facility] 09-08-2022 Miscellaneous Notes September 09, 2022 PID: [id number] Wendy Shipley [address] [place] [address] Dear Ms. Shipley, We are pleased to inform you that the results of your recent breast imaging exam on 09/08/2022 are normal. Early detection of cancer is very important. We also understand recommendations regarding breast cancer screening are controversial. Please discuss with your primary care provider which strategy is best for you and whether a mammogram is right for you. Your imaging studies and report will be kept on file at [facility] as part of your permanent medical record and are available for your continuing care. Thank you for allowing us to help in meeting your health care needs. Sincerely, Dr. Moreira Interpreting Radiologist [facility] (Normal over 40) documented in this encounter [facility] 02-20-2022 Instructions Tracey Carbajal APRN.SADE - 02/20/2022 1:23 PM EST Flonase 2 sprays in each nostril once a day Rest, increase water intake Motrin or Tylenol as needed for fever or pain. Salt water gargles, chloraseptic spray or lozenges as needed for sore throat. Warm beverages, honey. Nasal saline spray as needed Cool mist humidifier at night Mucinex DM as ordered If no improvement by Tuesday start Augmentin documented in this encounter [facility] 02-20-2022 History of Present illness Narrative Subjective The history is provided by the patient. No language instructor was used. HPI Wendy Shipley is a 76 year old female who presents today for CC of nasal congestion, post nasal drainage, thick nasal drainage for 6 days. She denies any cough. She has used no treatment or medications. No known exposure. BP 138/74 Pulse 101 Temp 36.9 C (98.5 F) Resp 18 Wt 75.5 kg (166 lb 6.4 oz) SpO2 96% BMI 29.01 kg/m Social History Tobacco Use Smoking status: Never Smokeless tobacco: Never Substance Use Topics Alcohol use: Yes Alcohol/week: 12.5 standard drinks Types: 5 Glasses of Wine (5oz) per week Comment: glass of wine 2 times per week Drug use: No PAST MEDICAL HISTORY Diagnosis Date Allergic rhinitis, cause unspecified Benign neoplasm of colon Cancer (HCC) skin Chronic depressive personality disorder Depression 01/22/2015 Diabetes mellitus without mention of complication Diabetes mellitus Diverticulosis of colon (without mention of hemorrhage) High cholesterol Hypertension Tubular adenoma of colon 10/16/2014 I have confirmed and edited as necessary, the PMS+ Review of Systems Constitutional: Negative for chills and fever. HENT: Positive for congestion, sinus pain and sore throat. Negative for ear pain. Respiratory: Negative for cough, sputum production, shortness of breath and wheezing. Cardiovascular: Negative for chest pain. Musculoskeletal: Negative for myalgias. Neurological: Positive for headaches. Objective Physical Exam Vitals and nursing note reviewed. HENT: Head: Normocephalic and atraumatic. Right Ear: Tympanic membrane, ear canal and external ear normal. Left Ear: Tympanic membrane, ear canal and external ear normal. Nose: Mucosal edema, congestion and rhinorrhea present. Right Sinus: Maxillary sinus tenderness present. No frontal sinus tenderness. Left Sinus: Maxillary sinus tenderness present. No frontal sinus tenderness. Mouth/Throat: Pharynx: Uvula midline. Posterior oropharyngeal erythema (mild) present. No oropharyngeal exudate. Cardiovascular: Rate and Rhythm: Normal rate and regular rhythm. Heart sounds: Normal heart sounds. Pulmonary: Effort: Pulmonary effort is normal. Breath sounds: Normal breath sounds. Lymphadenopathy: Head: Right side of head: No submental, submandibular or tonsillar adenopathy. Left side of head: No submental, submandibular or tonsillar adenopathy. Cervical: No cervical adenopathy. Skin: General: Skin is warm and dry. Neurological: Mental Status: She is alert. Psychiatric: Mood and Affect: Affect normal. ASSESSMENT/PLAN: 1. URI, acute - ICD9: 465.9, ICD10: J06.9 - Discussed viral etiology and rationale for treatment. - Symptomatic treatment with prn analgesia - Supportive care with fluids and rest - If not better by Tuesday, patient will start post dated rx for Augmentin Diagnosis and treatment plan were discussed and questions were answered to the patient's satisfaction. Pt acknowledged understanding of concepts and follow up plan. Specific signs and symptoms that would indicate the need for higher level of care were discussed in detail warranting prompt ER evaluation. Tracey Carbajal APRN.SADE documented in this encounter [facility] 01-19-2022 Miscellaneous Notes Keya from Dr Gar's office notified of message from pt's pcp. Desire Dixon LPN Called and left a voicemail for Dr Charity Gar's office to call back and ask for a nurse to receive the providers message. Estefany Joshi RN Not aware of any medical contraindications for meds mentioned below with anticholingeric effects. Okay to try meds. Keya calling back and states they have not heard anything. Please review and advise back. Patti Ayala LPN Twyla calling from Dr Charity Gar's office, urogyn. Dr Gar is asking if there is any reason pt can not take an anticholinergic such as toviaz, myrebetriq or gemtesa for overactive bladder? If pt shouldn't take it, Dr Gar will recommend botox Please advise. Desire Dixon LPN documented in this encounter [facility] 01-01-2022 Miscellaneous Notes ----- Message from Janeth Olivo MD sent at 12/30/2021 12:50 AM EDT ----- Findings consistent with fatty liver infiltration as was seen on 2013 US but Nodular contour could indicate cirrhotic morphology. Reviewed 2013 evaluation ruled out hepatitis C and B and A. Rest of work up per GI in 2002 was also unremarkable except for fatty liver findings on CTs and USs. Offer referral to GI to decide about further evaluation and treatment. If prefers since did not have any symptoms of cirrhosis at her most recent appointment, can repeat labs in May for 6 month follow up and add a few more tests to assess liver function to see if any change. In either case, would avoid high fructose corn syrup, alcohol,high doses of Tylenol. See what patient prefers to do at this time. documented in this encounter [facility] 12-29-2021 History of Present illness Narrative Radiology Service Progress Note PATIENT NAME: Wendy Shipley DATE OF SERVICE: December 29, 2021 TIME: 9:46 AM PATIENT IDENTITY VERIFICATION COMPLETED USING TWO (2) IDENTIFIERS: Name and Date of confirmed by patient verbally. FALL SCREENING: Has the patient had 2 falls in the last year or 1 fall with injury or currently using an Ambulatory Assistive Device (Walker, Cane, Wheelchair, Crutches, etc.)? No PATIENT GENDER DATA: Female. status: : No status: NO. PATIENT RELEVANT IMPLANT DATA REVIEWED: Not Applicable RADIOLOGY DEPARTMENT: Ultrasound PERIPHERAL IV DATA: Not applicable SIGNED BY: Nicole Plasencia RDMS December 29, 2021 9:46 AM documented in this encounter [facility] 12-23-2021 Miscellaneous Notes ----- Message from Janeth Olivo MD sent at 12/22/2021 5:34 PM EDT ----- Improved HgA1C Noted albumin a little below normal Alk phos, ALT and AST up from last check Glucose down to 198 Rest of metabolic panel and CBC within normal limits Recommend check RUQ US to see if anything going on with liver. Further evaluation and treatment as indicated. Will decide after that if need to check labs sooner and which labs. documented in this encounter [facility] 12-04-2021 Instructions Janeth Olivo MD - 12/04/2021 4:36 PM EDT 11/29/2017 TDAP done at [facility]-- scanned into Epic. documented in this encounter [facility] 12-04-2021 History of Present illness Narrative This note was created using [employer]. Subjective Wendy Shipley is a 76 year old female. Patient presents with: F/U 6 months SUBJECTIVE: Wendy Shipley is a 76 year old year old lady here today for 6 month follow up appointment for review of medical conditions. 11/29/2017 TDAP done at [facility]-- scanned into [employer]. Left knee localized swelling along lateral joint line--not tender; noted 2 to 3 months ago. Staying same size. No injuries. Doing well on meds. Refills up to date. Dr Charity Gar. UroGYN. Had issues with bowels like exploding when needs to go somewhere. Told to take Imodium every other day. Also Metamucil 1 teaspoon daily. Stools more solid. Does have bladder drop. Will be for surrogate decision maker with son Mariano as alternate. Plans to take care of HCDPOA. PAST MEDICAL HISTORY Diagnosis Date Allergic rhinitis, cause unspecified Benign neoplasm of colon Cancer (HCC) skin Chronic depressive personality disorder Depression 01/22/2015 Diabetes mellitus without mention of complication Diabetes mellitus Diverticulosis of colon (without mention of hemorrhage) High cholesterol Hypertension Tubular adenoma of colon 10/16/2014 Current Outpatient Medications Medication Sig venlafaxine ER (EFFEXOR XR) 37.5 mg 24 hr capsule Take 37.5 mg daily metFORMIN ER (GLUCOPHAGE XR) 500 mg 24 hr tablet Take 1 tablet by mouth daily with breakfast. And two tablets in the evening simvastatin (ZOCOR) 40 mg tablet Take 1 tablet by mouth daily at bedtime. lisinopril (ZESTRIL, PRINIVIL) 10 mg tablet Take 1 tablet by mouth once daily. Okhvptjhitnmm-Jfzxmjaf-Gemaoe (MULTIVITAMIN 50 PLUS) tab Take 1 tablet by mouth once daily. naproxen sodium (ANAPROX) 220 mg tablet Take 220 mg by mouth as needed. blood sugar diagnostic (BLOOD GLUCOSE TEST) test strip Test blood sugar(s) one times daily. Dx: Type 2 DM - Controlled E11.9 Insulin: No ubidecarenone (COENZYME Q10) 100 mg tab Take by mouth. BIOTIN ORAL Take by mouth once daily. Lancets (FREESTYLE LANCETS) Misc Misc Test daily and as needed, 250.00 CLARITIN 10 MG ORAL TAB Take one(1) tablet daily. ONE DAILY MULTI-VITAMIN ORAL TAB Take one(1) tablet daily. loperamide (IMODIUM A-D) 1 mg/7.5 mL oral liquid Take 7.5 mL by mouth every other day. (Per Dr. Charity Gar) psyllium husk 3.4 gram/5.4 gram powd Take 1 teaspoonful by mouth once daily. In 1 cup water (Namebrand Metamucil) CALCIUM CARBONATE/VITAMIN D3 (CALCIUM 600 + D ORAL) Take by mouth twice daily. (Patient not taking: No sig reported) Aspirin 81 mg ORAL Tab Take one(1) tablet daily. (Patient not taking: ) Current Facility-Administered Medications Medication Dose Route Frequency perflutren lipid microspheres 1.3 mL in NaCl (PF) 0.9% 10 mL injection (DEFINITY) INTRAVENOUS DIRECTED PRN sodium chloride 0.9 % (flush) 10 mL (BD POSIFLUSH) 10 mL INTRAVENOUS DIRECTED PRN Review of Systems Objective BP 136/72 Pulse 93 Wt 73 kg (161 lb) SpO2 94% BMI 28.07 kg/m Last 5 Encounter Wt Readings: Date: Wt: 12/04/2021 73 kg (161 lb) 06/11/2021 73.9 kg (163 lb) 04/13/2021 74.8 kg (165 lb) 12/12/2020 73.9 kg (163 lb) 11/19/2020 76.2 kg (168 lb) No waist measurement recorded Estimated body mass index is 28.07 kg/m as calculated from the following: Height as of 11/14/17: 161.3 cm (5' 3.5 ). Weight as of this encounter: 73 kg (161 lb). Last 5 Encounter BP Readings: Date: BP: 12/04/2021 136/72 06/11/2021 136/68 04/13/2021 136/74 12/12/2020 122/62 12/02/2020 123/62 Physical Exam Constitutional: Appearance: Normal appearance. HENT: Head: Normocephalic. Eyes: Conjunctiva/sclera: Conjunctivae normal. Cardiovascular: Rate and Rhythm: Normal rate and regular rhythm. Heart sounds: Normal heart sounds. Pulmonary: Effort: Pulmonary effort is normal. Breath sounds: Normal breath sounds. Skin: General: Skin is warm and dry. Neurological: General: No focal deficit present. Mental Status: She is alert and oriented to person, place, and time. Psychiatric: Mood and Affect: Mood normal. Behavior: Behavior normal. Thought Content: Thought content normal. Judgment: Judgment normal. Feet:Shoes and socks removed, Are you having foot pain Yes from hammertoes, normal distal pulses, sensitive to 10 gm monofilament, calluses few small ones on medial and lateral balls of feet, and hammertoes noted and bunions Labs ordered and drawn today Hemoglobin A1C (%) Date Value 06/18/2021 7.1 11/11/2020 6.9 01/22/2020 6.4 12/13/2018 6.8 06/12/2018 6.5 01/10/2018 6.9 Assessment and Plan ASSESSMENT/PLAN: 1. Type 2 diabetes mellitus without complication, without long-term current use of insulin (HCC) - ICD9: 250.00, ICD10: E11.9 (primary diagnosis) Controlled. - Continue current medications - HGB A1C - COMP METABOLIC PANEL - ALBUMIN/CREAT RATIO RND UR 2. Hypertension goal BP (blood pressure) < 150/90 - ICD9: 401.9, ICD10: I10 - good control - Continue current medication(s) - Recommended regular aerobic exercise. - Recommend home blood pressure monitoring, to bring results in on next visit - Goal of BP <130/80 - COMP METABOLIC PANEL - CBC 3. Bursitis of other bursa of left knee - ICD9: 726.60, ICD10: M70.52 Continue present management. 4. Mixed hyperlipidemia - ICD9: 272.2, ICD10: E78.2 - to be determined upon return of lab results - Continue current medication. - Encouraged following a low fat, low cholesterol diet. - Discussed the benefits of regular aerobic exercise and weight loss. - Encouraged following a low carbohydrate, healthy oil intake diet. - LIPID PANEL BASIC 5. Bunion of great toe - ICD9: 727.1, ICD10: M21.619 Further evaluation and treatment as indicated. 6. Hammertoes of both feet - ICD9: 735.4, ICD10: M20.41, M20.42 Further evaluation and treatment as indicated. Janeth Olivo MD documented in this encounter [facility] 10-15-2021 Miscellaneous Notes Thank you for using [facility] [employer]. Our records indicate that you are due for an appointment with your primary care team. Regular visits allow you to connect with your provider and help you stay on track in achieving your health and wellness goals. Needs follow up scheduled Saw Ruthie May for 6 months follow up due with DM labs The following approved medication requests have been transmitted electronically. Signed Prescriptions Disp Refills venlafaxine ER (EFFEXOR XR) 37.5 mg 24 hr capsule 90 capsule 3 Sig: Take 37.5 mg daily SANDHYA: No Authorizing Provider: JANETH OLIVO metFORMIN ER (GLUCOPHAGE XR) 500 mg 24 hr tablet 270 tablet 3 Sig: Take 1 tablet by mouth daily with breakfast. And two tablets in the evening SANDHYA: No Authorizing Provider: JANETH OLIVO simvastatin (ZOCOR) 40 mg tablet 90 tablet 3 Sig: Take 1 tablet by mouth daily at bedtime. SANDHYA: No Authorizing Provider: JANETH OLIVO lisinopril (ZESTRIL, PRINIVIL) 10 mg tablet 90 tablet 3 Sig: Take 1 tablet by mouth once daily. SANDHYA: No Authorizing Provider: JANETH OLIVO MD Patient has been identified by name and date of : Yes Patient phones for refill(s): Pending Prescriptions Disp Refills VENLAFAXINE ER 37.5 MG CAPSULE,EXTENDED RELEASE 24 HR 90 capsule 3 Sig: Take 37.5 mg daily SANDHYA: No METFORMIN ER 500 MG TABLET,EXTENDED RELEASE 24 HR 270 tablet 3 Sig: Take 1 tablet by mouth daily with breakfast. And two tablets in the evening SANDHYA: No SIMVASTATIN 40 MG TABLET 90 tablet 3 Sig: Take 1 tablet by mouth daily at bedtime. SANDHYA: No LISINOPRIL 10 MG TABLET 90 tablet 3 Sig: Take 1 tablet by mouth once daily. SANDHYA: No Date of last office visit in primary care: 06/11/21 Please advise. Thank you. Genny Killian LPN documented in this encounter [facility] 10-02-2021 Miscellaneous Notes Please schedule with her preferred turn supervisor Haven Mcleod at the main [place] Patient calling, states that she has not gotten a response from PCP and she would like to know what would be recommended. Please advise. documented in this encounter [facility] 07-29-2021 History of Present illness Narrative POPULATION HEALTH NAVIGATION OUTREACH Action/FYI Left msg & sent Ritothart. Pt identified by name and : NO Outreach Outcome/Action Unable to reach patient: Left message MyChart message sent Reason for Outreach Care Gap or Scheduling/Wellness visits Payer: Payor: [employer] MEDICARE / Plan: [employer] PLUS / Product Type: HMO / Care Gap Reviewed:: Diabetic Eye Exam Reminder: Reminder note to check Health Maintenance for items below Health Maintenance items due: ADVANCE DIRECTIVE DISCUSSION Never done COVID-19 VACCINE(4 - Booster for Pfizer series) due on 06/05/2021 DILATED RETINAL EXAM due on 08/08/2021 Message Sent to Practice: No Navigation Signature: Naomie MATHUR July 29, 2021 9:56 AM documented in this encounter [facility] 07-20-2021 Miscellaneous Notes July 20, 2021 PID: [id number] Wendy Shipley [address] [place] [address] Dear Ms. Shipley, We are pleased to inform you that the results of your recent breast imaging exam on 07/20/2021 are normal. Early detection of cancer is very important. We also understand recommendations regarding breast cancer screening are controversial. Please discuss with your primary care provider which strategy is best for you and whether a mammogram is right for you. Your imaging studies and report will be kept on file at [facility] as part of your permanent medical record and are available for your continuing care. Thank you for allowing us to help in meeting your health care needs. Sincerely, Dr. Fortune Interpreting Radiologist [facility] (Normal over 40) documented in this encounter [facility] 06-11-2021 Instructions Ruthie Nova APRN.CNS - 06/11/2021 2:21 PM EDT Check labs 1-2 weeks Schedule echocardiogram documented in this encounter [facility] 06-11-2021 History of Present illness Narrative SUBJECTIVE: SHINGRIX VACCINE(3 of 3) due on 08/05/2020 URINE ALBUMIN:CREATININE RATIO due on 01/25/2021 BP CONTROLLED (<130/80) due on 02/06/2021 ADVANCE DIRECTIVE DISCUSSION Never done HBA1C due on 05/14/2021 HPI Wendy Shipley is a 76 year old female. Returns to clinic for routine visit. ACTIVE PROBLEM LIST Mixed Hyperlipidemia RHINITIS ALLERGIC, DUE TO POLLEN Fatty Liver Osteopenia Hypertension goal BP (blood pressure) < 150/90 Bmi 30.0-30.9,Adult Functional Diarrhea Elevated Liver Enzymes Type 2 Diabetes Mellitus Without Complication, Without Long-Term Current Use of Insulin (Hcc) Previously heard murmur, has not had echo yet. Noted she needs to schedule mammogram as well. Notes recently returned from vacation in [place]. Has not yet completed advanced directives. HTN: Without headache, chest pain, palpitations, dyspnea, peripheral edema, orthopnea, fatigue and PND. Last 14 Encounter BP Readings: Date: BP: 06/11/2021 136/68 04/13/2021 136/74 12/12/2020 122/62 12/02/2020 123/62 11/19/2020 136/72 11/11/2020 136/70 10/28/2020 154/78 10/28/2020 136/84 10/21/2020 156/68 02/07/2020 134/62 08/27/2019 130/78 04/30/2019 120/72 12/25/2018 126/70 06/16/2018 132/76 DIABETES MELLITUS: No recent check of BS at home. No report of excessive thirst or increased frequency of urination, chest pain or dyspnea , numbness, tingling or pain in extremities, new or unusual visual symptoms, low sugar/hypoglycemic reactions, weight loss/gain, lightheadedness/dizziness and bowel changes/loose stools. Patient's last HgA1C was Hemoglobin A1C (%) Date Value 11/11/2020 6.9 01/22/2020 6.4 ) Hyperlipidemia. Ms. Shipley reports doing well on current therapy Her most recent lipid panels are: Cholesterol, Total (mg/dL) Date Value 01/22/2020 143 12/13/2018 148 Total Cholesterol, Nonfasting (mg/dL) Date Value 11/11/2020 136 HDL Cholesterol (mg/dL) Date Value 01/22/2020 65 12/13/2018 64 HDL Cholesterol, Nonfasting (mg/dL) Date Value 11/11/2020 59 LDL Cholesterol (mg/dL) Date Value 01/22/2020 57 12/13/2018 62 LDL Cholesterol, Nonfasting (mg/dL) Date Value 11/11/2020 49 Triglyceride (mg/dL) Date Value 01/22/2020 107 12/13/2018 111 Triglycerides, Nonfasting (mg/dL) Date Value 11/11/2020 138 Review of Systems Constitutional: Negative. Respiratory: Negative. Cardiovascular: Negative. Endocrine: Negative for polydipsia and polyphagia. Objective BP 136/68 Pulse 92 Resp 16 Wt 73.9 kg (163 lb) BMI 28.42 kg/m Physical Exam Constitutional: Appearance: Normal appearance. HENT: Head: Normocephalic and atraumatic. Eyes: Conjunctiva/sclera: Conjunctivae normal. Neck: Vascular: No carotid bruit. Cardiovascular: Rate and Rhythm: Normal rate and regular rhythm. Heart sounds: Murmur (soft, RUSB) heard. Pulmonary: Effort: Pulmonary effort is normal. Breath sounds: Normal breath sounds. Abdominal: General: Bowel sounds are normal. Palpations: Abdomen is soft. Musculoskeletal: Cervical back: No muscular tenderness. Right lower leg: No edema. Left lower leg: No edema. Lymphadenopathy: Cervical: No cervical adenopathy. Skin: General: Skin is warm and dry. Neurological: General: No focal deficit present. Mental Status: She is alert and oriented to person, place, and time. ALLERGIES Allergen Reactions Levaquin [Levofloxa* Joint pain Paxil [Paroxetine H* Septra [Sulfamethox* Zoloft [Sertraline * Medications: Axkwvfgqbquhm-Pjplpzsq-Pcbohg (MULTIVITAMIN 50 PLUS) tab Take 1 tablet by mouth once daily. naproxen sodium (ANAPROX) 220 mg tablet Take 220 mg by mouth as needed. venlafaxine ER (EFFEXOR XR) 37.5 mg 24 hr capsule Take 37.5 mg daily metFORMIN ER (GLUCOPHAGE XR) 500 mg 24 hr tablet Take 1 tablet by mouth daily with breakfast. And two tablets in the evening simvastatin (ZOCOR) 40 mg tablet Take 1 tablet by mouth daily at bedtime. lisinopril (ZESTRIL, PRINIVIL) 10 mg tablet Take 1 tablet by mouth once daily. blood sugar diagnostic (BLOOD GLUCOSE TEST) test strip Test blood sugar(s) one times daily. Dx: Type 2 DM - Controlled E11.9 Insulin: No ubidecarenone (COENZYME Q10) 100 mg tab Take by mouth. BIOTIN ORAL Take by mouth once daily. Lancets (FREESTYLE LANCETS) Misc Misc Test daily and as needed, 250.00 CLARITIN 10 MG ORAL TAB Take one(1) tablet daily. hydrocortisone 2.5 % ointment Apply to affected area twice daily. meloxicam (MOBIC) 15 mg tablet Take 1 tablet by mouth once daily. With food. CALCIUM CARBONATE/VITAMIN D3 (CALCIUM 600 + D ORAL) Take by mouth twice daily. Aspirin 81 mg ORAL Tab Take one(1) tablet daily. ONE DAILY MULTI-VITAMIN ORAL TAB Take one(1) tablet daily. PAST MEDICAL HISTORY Diagnosis Date Allergic rhinitis, cause unspecified Benign neoplasm of colon Cancer (HCC) skin Chronic depressive personality disorder Depression 01/22/2015 Diabetes mellitus without mention of complication Diabetes mellitus Diverticulosis of colon (without mention of hemorrhage) High cholesterol Hypertension Tubular adenoma of colon 10/16/2014 Social History Tobacco Use Smoking status: Never Smoker Smokeless tobacco: Never Used Substance Use Topics Alcohol use: Yes Alcohol/week: 12.5 standard drinks Types: 5 Glasses of Wine (5oz) per week Comment: glass of wine 2 times per week Drug use: No Component Latest Ref Rng & Units 06/12/2018 12/13/2018 01/22/2020 01/26/2020 Protein, Total 6.3 - 8.0 g/dL 7.2 6.9 6.8 Albumin 3.9 - 4.9 g/dL 4.5 4.3 4.3 Calcium 8.5 - 10.2 mg/dL 9.7 9.6 9.7 Bilirubin, Total 0.2 - 1.3 mg/dL 0.8 0.8 1.0 Alkaline Phosphatase 34 - 123 U/L 118 126 (H) 120 AST 13 - 35 U/L 63 (H) 51 (H) 60 (H) Glucose 74 - 99 mg/dL 139 (H) 139 (H) 148 (H) BUN 7 - 21 mg/dL 17 16 11 Creatinine 0.58 - 0.96 mg/dL 0.76 0.63 0.66 Sodium 136 - 144 mmol/L 141 141 143 Potassium 3.7 - 5.1 mmol/L 4.1 4.1 4.2 Chloride 97 - 105 mmol/L 102 103 103 CO2 22 - 30 mmol/L 26 28 28 Anion Gap 9 - 18 mmol/L 13 10 12 ALT 7 - 38 U/L 74 (H) 56 (H) 71 (H) eGFR- >60 >60 >60 eGFR-All Other Races . >60 >60 >60 WBC 3.70 - 11.00 k/uL 7.36 5.85 RBC 3.90 - 5.20 m/uL 4.93 4.76 Hemoglobin 11.5 - 15.5 g/dL 15.6 (H) 14.9 Hematocrit 36.0 - 46.0 % 47.9 (H) 46.2 (H) MCV 80.0 - 100.0 fL 97.2 97.1 MCH 26.0 - 34.0 pG 31.6 31.3 MCHC 30.5 - 36.0 g/dL 32.6 32.3 RDW-CV 11.5 - 15.0 % 12.6 12.6 Platelet Count 150 - 400 k/uL 183 169 MPV 9.0 - 12.7 fL 11.7 11.5 Absolute nRBC <0.01 k/uL <0.01 <0.01 Cholesterol, Total <200 mg/dL 148 148 143 Triglyceride <150 mg/dL 95 111 107 HDL Cholesterol >39 mg/dL 62 64 65 LDL Cholesterol <100 mg/dL 67 62 57 Non HDL Cholesterol <130 mg/dL 86 84 78 Fasting Time hrs 10 12 11 VLDL Cholesterol <30 mg/dL 19 22 21 TC:HDL Ratio <5.10 2.39 2.31 2.20 LDL:HDL Ratio <2.54 1.08 0.97 0.88 Creatinine, Ur Random (UCRR) 20 - 300 mg/dL 46.0 46.6 Albumin, Urine Random mg/L <12.0 <12.0 Albumin/Creat Ratio <30 mg/g Not calculated Not calculated Hemoglobin A1C 4.3 - 5.6 % 6.5 (H) 6.8 (H) 6.4 (H) Estimated Average Glucose mg/dL 140 148 137 ASSESSMENT/PLAN: ASSESSMENT/PLAN: 1. Type 2 diabetes mellitus without complication, without long-term current use of insulin (HCC) - ICD9: 250.00, ICD10: E11.9 (primary diagnosis) Currently controlled, continue current treatment unchanged for now, continue to monitor - HGB A1C - ALBUMIN/CREAT RATIO RND UR - LIPID PANEL BASIC - HGB A1C - ALBUMIN/CREAT RATIO RND UR 2. Mixed hyperlipidemia - ICD9: 272.2, ICD10: E78.2 Currently controlled, continue current treatment unchanged for now, continue to monitor 3. Hypertension goal BP (blood pressure) < 150/90 - ICD9: 401.9, ICD10: I10 Currently controlled, continue current treatment unchanged for now, continue to monitor 4. Heart murmur - ICD9: 785.2, ICD10: R01.1 Currently without symptoms, recommend echocardiogram for further evaluation - ECHO - PERFLUTREN LIPID MICROSPHERES 1.1 MG/ML INJECTION IN NS 10 ML - SODIUM CHLORIDE 0.9 % (FLUSH) INJECTION SYRINGE schedule echocardiogram, mammogram 6 mo recheck Janeth Olivo MD labs 1-2 week Ruthie Nova APRN.CNS Medical Decision Making: Problems: Moderate: 2+ stable chronic illnesses Data: Unique test(s) ordered: 3+ Risk: Moderate: Drug management Medical Decision Making Level: 4 - Moderate documented in this encounter [facility] documented as of this encounter (statuses as of 06/11/2021) [facility] History of Past illness Narrative* Problem Noted Date Resolved Date Depression 01/22/2015 11/11/2020 Last Assessment & Plan: She reports her depression is in remission and she is feeling well. Assessment: Stable PLAN: No change Tubular adenoma of colon 10/16/2014 017 Depressive disorder, not elsewhere classified 01/22/2015 DIABETES MELLITUS TYPE II-UNCOMPL 08/03/2006 11/28/2013 Benign neoplasm of colon 07/15/2006 012 Internal hemorrhoids without mention of complica tion 07/15/2006 01/22/2015 External hemorrhoids without mention of complica tion 07/15/2006 01/22/2015 Dysmetabolic syndrome X 06/09/2006 11/24/19 18 ELEVATED SGOT 03/28/2006 07/09/2011 Adjustment disorder with depressed mood 11/14/19 05 07/09/2011 Allergic rhinitis, cause unspecified 07/09/2011 Chronic depressive personality disorder 07/09/2011 documented as of this encounter (statuses as of 07/21/2021) [facility] History of Past illness Narrative* Problem Noted Date Resolved Date Depression 01/22/2015 11/11/2020 Last Assessment & Plan: She reports her depression is in remission and she is feeling well. Assessment: Stable PLAN: No change Tubular adenoma of colon 10/16/2014 017 Depressive disorder, not elsewhere classified 01/22/2015 DIABETES MELLITUS TYPE II-UNCOMPL 08/03/2006 11/28/2013 Benign neoplasm of colon 07/15/2006 012 Internal hemorrhoids without mention of complica tion 07/15/2006 01/22/2015 External hemorrhoids without mention of complica tion 07/15/2006 01/22/2015 Dysmetabolic syndrome X 06/09/2006 11/24/19 18 ELEVATED SGOT 03/28/2006 07/09/2011 Adjustment disorder with depressed mood 11/14/19 05 07/09/2011 Allergic rhinitis, cause unspecified 07/09/2011 Chronic depressive personality disorder 07/09/2011 documented as of this encounter (statuses as of 07/22/2021) [facility] History of Past illness Narrative* Problem Noted Date Resolved Date Depression 01/22/2015 11/11/2020 Last Assessment & Plan: She reports her depression is in remission and she is feeling well. Assessment: Stable PLAN: No change Tubular adenoma of colon 10/16/2014 017 Depressive disorder, not elsewhere classified 01/22/2015 DIABETES MELLITUS TYPE II-UNCOMPL 08/03/2006 11/28/2013 Benign neoplasm of colon 07/15/2006 012 Internal hemorrhoids without mention of complica tion 07/15/2006 01/22/2015 External hemorrhoids without mention of complica tion 07/15/2006 01/22/2015 Dysmetabolic syndrome X 06/09/2006 11/24/19 18 ELEVATED SGOT 03/28/2006 07/09/2011 Adjustment disorder with depressed mood 11/14/19 05 07/09/2011 Allergic rhinitis, cause unspecified 07/09/2011 Chronic depressive personality disorder 07/09/2011 documented as of this encounter (statuses as of 07/29/2021) [facility] History of Past illness Narrative* Problem Noted Date Resolved Date Depression 01/22/2015 11/11/2020 Last Assessment & Plan: She reports her depression is in remission and she is feeling well. Assessment: Stable PLAN: No change Tubular adenoma of colon 10/16/2014 017 Depressive disorder, not elsewhere classified 01/22/2015 DIABETES MELLITUS TYPE II-UNCOMPL 08/03/2006 11/28/2013 Benign neoplasm of colon 07/15/2006 012 Internal hemorrhoids without mention of complica tion 07/15/2006 01/22/2015 External hemorrhoids without mention of complica tion 07/15/2006 01/22/2015 Dysmetabolic syndrome X 06/09/2006 11/24/19 18 ELEVATED SGOT 03/28/2006 07/09/2011 Adjustment disorder with depressed mood 11/14/19 05 07/09/2011 Allergic rhinitis, cause unspecified 07/09/2011 Chronic depressive personality disorder 07/09/2011 documented as of this encounter (statuses as of 10/02/2021) [facility] History of Past illness Narrative* Problem Noted Date Resolved Date Depression 01/22/2015 11/11/2020 Last Assessment & Plan: She reports her depression is in remission and she is feeling well. Assessment: Stable PLAN: No change Tubular adenoma of colon 10/16/2014 017 Depressive disorder, not elsewhere classified 01/22/2015 DIABETES MELLITUS TYPE II-UNCOMPL 08/03/2006 11/28/2013 Benign neoplasm of colon 07/15/2006 012 Internal hemorrhoids without mention of complica tion 07/15/2006 01/22/2015 External hemorrhoids without mention of complica tion 07/15/2006 01/22/2015 Dysmetabolic syndrome X 06/09/2006 11/24/19 18 ELEVATED SGOT 03/28/2006 07/09/2011 Adjustment disorder with depressed mood 11/14/19 05 07/09/2011 Allergic rhinitis, cause unspecified 07/09/2011 Chronic depressive personality disorder 07/09/2011 documented as of this encounter (statuses as of 10/15/2021) [facility] History of Past illness Narrative* Problem Noted Date Resolved Date Depression 01/22/2015 11/11/2020 Last Assessment & Plan: She reports her depression is in remission and she is feeling well. Assessment: Stable PLAN: No change Tubular adenoma of colon 10/16/2014 017 Depressive disorder, not elsewhere classified 01/22/2015 DIABETES MELLITUS TYPE II-UNCOMPL 08/03/2006 11/28/2013 Benign neoplasm of colon 07/15/2006 012 Internal hemorrhoids without mention of complica tion 07/15/2006 01/22/2015 External hemorrhoids without mention of complica tion 07/15/2006 01/22/2015 Dysmetabolic syndrome X 06/09/2006 11/24/19 18 ELEVATED SGOT 03/28/2006 07/09/2011 Adjustment disorder with depressed mood 11/14/1907/09/2011 Allergic rhinitis, cause unspecified 07/09/2011 Chronic depressive personality disorder 07/09/2011 documented as of this encounter (statuses as of 10/15/2021) [facility] History of Past illness Narrative* Problem Noted Date Resolved Date Depression 01/22/2015 11/11/2020 Last Assessment & Plan: She reports her depression is in remission and she is feeling well. Assessment: Stable PLAN: No change Tubular adenoma of colon 10/16/2014 017 Depressive disorder, not elsewhere classified 01/22/2015 DIABETES MELLITUS TYPE II-UNCOMPL 08/03/2006 11/28/2013 Benign neoplasm of colon 07/15/2006 012 Internal hemorrhoids without mention of complica tion 07/15/2006 01/22/2015 External hemorrhoids without mention of complica tion 07/15/2006 01/22/2015 Dysmetabolic syndrome X 06/09/2006 11/24/19 18 ELEVATED SGOT 03/28/2006 07/09/2011 Adjustment disorder with depressed mood 11/14/19 05 07/09/2011 Allergic rhinitis, cause unspecified 07/09/2011 Chronic depressive personality disorder 07/09/2011 documented as of this encounter (statuses as of 12/22/2021) [facility] History of Past illness Narrative* Problem Noted Date Resolved Date Depression 01/22/2015 11/11/2020 Last Assessment & Plan: She reports her depression is in remission and she is feeling well. Assessment: Stable PLAN: No change Tubular adenoma of colon 10/16/2014 017 Depressive disorder, not elsewhere classified 01/22/2015 DIABETES MELLITUS TYPE II-UNCOMPL 08/03/2006 11/28/2013 Benign neoplasm of colon 07/15/2006 012 Internal hemorrhoids without mention of complica tion 07/15/2006 01/22/2015 External hemorrhoids without mention of complica tion 07/15/2006 01/22/2015 Dysmetabolic syndrome X 06/09/2006 11/24/19 18 ELEVATED SGOT 03/28/2006 07/09/2011 Adjustment disorder with depressed mood 11/14/19 05 07/09/2011 Allergic rhinitis, cause unspecified 07/09/2011 Chronic depressive personality disorder 07/09/2011 documented as of this encounter (statuses as of 12/23/2021) [facility] History of Past illness Narrative* Problem Noted Date Resolved Date Depression 01/22/2015 11/11/2020 Last Assessment & Plan: She reports her depression is in remission and she is feeling well. Assessment: Stable PLAN: No change Tubular adenoma of colon 10/16/2014 017 Depressive disorder, not elsewhere classified 01/22/2015 DIABETES MELLITUS TYPE II-UNCOMPL 08/03/2006 11/28/2013 Benign neoplasm of colon 07/15/2006 012 Internal hemorrhoids without mention of complica tion 07/15/2006 01/22/2015 External hemorrhoids without mention of complica tion 07/15/2006 01/22/2015 Dysmetabolic syndrome X 06/09/2006 11/24/19 18 ELEVATED SGOT 03/28/2006 07/09/2011 Adjustment disorder with depressed mood 11/14/19 05 07/09/2011 Allergic rhinitis, cause unspecified 07/09/2011 Chronic depressive personality disorder 07/09/2011 documented as of this encounter (statuses as of 12/30/2021) [facility]11-04-2015 History of Past illness Narrative* Problem Noted Date Resolved Date Depression 01/22/2015 11/11/2020 Last Assessment & Plan: She reports her depression is in remission and she is feeling well. Assessment: Stable PLAN: No change Tubular adenoma of colon 10/16/2014 017 Depressive disorder, not elsewhere classified 01/22/2015 DIABETES MELLITUS TYPE II-UNCOMPL 08/03/2006 11/28/2013 Benign neoplasm of colon 07/15/2006 012 Internal hemorrhoids without mention of complica tion 07/15/2006 01/22/2015 External hemorrhoids without mention of complica tion 07/15/2006 01/22/2015 Dysmetabolic syndrome X 06/09/2006 11/24/19 18 ELEVATED SGOT 03/28/2006 07/09/2011 Adjustment disorder with depressed mood 11/14/1907/09/2011 Allergic rhinitis, cause unspecified 07/09/2011 Chronic depressive personality disorder 07/09/2011 documented as of this encounter (statuses as of 01/18/2022) [facility]11-[facility] History of Past illness Narrative* Problem Noted Date Resolved Date Depression 01/22/2015 11/11/2020 Last Assessment & Plan: She reports her depression is in remission and she is feeling well. Assessment: Stable PLAN: No change Tubular adenoma of colon 10/16/2014 017 Depressive disorder, not elsewhere classified 01/22/2015 DIABETES MELLITUS TYPE II-UNCOMPL 08/03/2006 11/28/2013 Benign neoplasm of colon 07/15/2006 012 Internal hemorrhoids without mention of complica tion 07/15/2006 01/22/2015 External hemorrhoids without mention of complica tion 07/15/2006 01/22/2015 Dysmetabolic syndrome X 06/09/2006 11/24/19 18 ELEVATED SGOT 03/28/2006 07/09/2011 Adjustment disorder with depressed mood 11/14/19 05 07/09/2011 Allergic rhinitis, cause unspecified 07/09/2011 Chronic depressive personality disorder 07/09/2011 documented as of this encounter (statuses as of 01/19/2022) [facility]11-[facility] History of Past illness Narrative* Problem Noted Date Resolved Date Depression 01/22/2015 11/11/2020 Last Assessment & Plan: She reports her depression is in remission and she is feeling well. Assessment: Stable PLAN: No change Tubular adenoma of colon 10/16/2014 017 Depressive disorder, not elsewhere classified 01/22/2015 DIABETES MELLITUS TYPE II-UNCOMPL 08/03/2006 11/28/2013 Benign neoplasm of colon 07/15/2006 012 Internal hemorrhoids without mention of complica tion 07/15/2006 01/22/2015 External hemorrhoids without mention of complica tion 07/15/2006 01/22/2015 Dysmetabolic syndrome X 06/09/2006 11/24/19 18 ELEVATED SGOT 03/28/2006 07/09/2011 Adjustment disorder with depressed mood 11/14/19 05 07/09/2011 Allergic rhinitis, cause unspecified 07/09/2011 Chronic depressive personality disorder 07/09/2011 documented as of this encounter (statuses as of 02/20/2022) [facility]11-[facility] History of Past illness Narrative* Problem Noted Date Resolved Date Depression 01/22/2015 11/11/2020 Last Assessment & Plan: She reports her depression is in remission and she is feeling well. Assessment: Stable PLAN: No change Tubular adenoma of colon 10/16/2014 017 Depressive disorder, not elsewhere classified 01/22/2015 DIABETES MELLITUS TYPE II-UNCOMPL 08/03/2006 11/28/2013 Benign neoplasm of colon 07/15/2006 012 Internal hemorrhoids without mention of complica tion 07/15/2006 01/22/2015 External hemorrhoids without mention of complica tion 07/15/2006 01/22/2015 Dysmetabolic syndrome X 06/09/2006 11/24/19 18 ELEVATED SGOT 03/28/2006 07/09/2011 Adjustment disorder with depressed mood 11/14/19 05 07/09/2011 Allergic rhinitis, cause unspecified 07/09/2011 Chronic depressive personality disorder 07/09/2011 documented as of this encounter (statuses as of 09/10/2022) [facility]11-04-[facility] History of Past illness Narrative* Problem Noted Date Resolved Date Depression 01/22/2015 11/11/2020 Last Assessment & Plan: She reports her depression is in remission and she is feeling well. 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 documented as of this encounter (statuses as of 03/04/2023) [facility] note* Diagnosis Type 2 diabetes mellitus without complication, without long-term current use of insulin ([facility])- Primary Mixed hyperlipidemia Hypertension goal BP (blood pressure) < 150/90 Unspecified essential hypertension Heart murmur Undiagnosed cardiac murmurs documented in this encounter [facility] note* Diagnosis Encounter for screening mammogram for breast cancer documented in this encounter [facility] note* Diagnosis Functional diarrhea- Primary documented in this encounter [facility] note* Diagnosis Type 2 diabetes mellitus without complication, without long-term current use of insulin (HCC)- Primary Depression, unspecified depression type Hypertension goal BP (blood pressure) < 150/90 Unspecified essential hypertension Mixed hyperlipidemia documented in this encounter [facility] note* Diagnosis Type 2 diabetes mellitus without complication, without long-term current use of insulin (HCC)- Primary Hypertension goal BP (blood pressure) < 150/90 Unspecified essential hypertension Bursitis of other bursa of left knee Mixed hyperlipidemia Bunion of great toe Bunion Hammertoes of both feet documented in this encounter [facility] note* Diagnosis Elevated LFTs Other abnormal blood chemistry documented in this encounter [facility] note* Diagnosis URI, acute- Primary Acute upper respiratory infections of unspecified site documented in this encounter [facility] note* Diagnosis Type 2 diabetes mellitus without complication, without long-term current use of insulin ([facility]) Hypertension goal BP (blood pressure) < 150/90 Unspecified essential hypertension Mixed hyperlipidemia Depression, unspecified depression type Polyp of colon, unspecified part of colon, unspecified type documented in this encounter [facility] note* Diagnosis Visit for screening mammogram- Primary Other screening mammogram documented in this encounter [facility] note* Diagnosis NAFLD (nonalcoholic fatty liver disease)- Primary Other chronic nonalcoholic liver disease documented in this encounter [facility] note* Diagnosis Rib pain on left side- Primary Chest pain, unspecified Fall on same level from slipping, tripping or stumbling, initial encounter documented in this encounter [facility] note* Diagnosis Bradycardia- Primary Other specified cardiac dysrhythmias Heart block Conduction disorder, unspecified SOB (shortness of breath) Shortness of breath Murmur, cardiac Undiagnosed cardiac murmurs Hypertension goal BP (blood pressure) < 150/90 Unspecified essential hypertension Encounter for immunization Need for other specified prophylactic vaccination against single bacterial disease documented in this encounter [facility] for referral (narrative)* Outpatient Procedure (Routine) - Pending Review Specialty Diagnoses / Procedures Referred By Wendie maria Referred To [facility] Diagnoses Heart murmur Procedures ECHO ECHO TTHRC R-T 2D W/WOM-MODE COMPL SPEC&COLR D Ruthie Nova APRN.CNS [address] [place] [address] [facility] [address] [place] [address] Referral ID Status Reason Start Date Expiration Date Visits Requested Visits Authorized [id number] Pending Review Auto-Generat ed Referral 06/11/2021 06/11/2022 1 1 Electronically signed by Ruthie Nova APRN.[facility] at 06/11/2021 2:11 PM EDT [facility] for referral (narrative)* Diagnostic Procedure Only (Routine) - Closed Specialty Diagnoses / Procedures Referred By Wendie t Referred To Contact [facility] Diagnoses Encounter for screening mammogram for breast cancer Procedures FLORENCIA SCREENING SCREENING MAMMOGRAPHY BI 2-VIEW BREAST INC CAD Janeth Olivo MD [address] [place] [address] [facility] [address] [place] [address] Referral ID Status Reason Start Date Expiration Date V isits Requested Visits Authorized [id number] Closed Auto-Generate d Referral 01/14/2021 02/13/2022 1 1 [facility] for referral (narrative)* Diagnostic Procedure Only (Routine) - Closed Specialty Diagnoses / Procedures Referred By Wendie t Referred To Contact [facility] Diagnoses Elevated LFTs Procedures US ABD RT UPPER QUADRANT US ABDOMINAL REAL TIME W/IMAGE LIMITED Janeth Olivo MD [address] [place] [address] [facility] Referral ID Status Reason Start Date Expiration Date V isits Requested Visits Authorized [id number] Closed Auto-Generate d Referral 12/22/2021 01/21/2023 1 1 [facility] for referral (narrative)* Diagnostic Procedure Only (Routine) - Pending Review Specialty Diagnoses / Procedures Referred By Wendie maria Referred To Contact [facility] Diagnoses Visit for screening mammogram Procedures FLORENCIA SCREENING SCREENING MAMMOGRAPHY BI 2-VIEW BREAST INC CAD Aria Sotomayor APRN.CNP [address] [phone] [facility] [address] [place] [address] Referral ID Status Reason Start Date Expiration Date Visits Requested Visits Authorized [id number] Pending Review Auto-Generat ed Referral 10/11/2022 10/03/2023 1 1 [facility] for referral (narrative)* Diagnostic Procedure Only (Urgent) - Closed Specialty Diagnoses / Procedures Referred By Wendie maria Referred To Contact [facility] Diagnoses Rib pain on left side Fall on same level from slipping, tripping or stumbling, initial encounter Procedures XR RIBS/CHEST 3V AP RIB/OBLS/CXR LEFT RADEX RIBS UNI W/POSTEROANT CH MINIMUM 3 VIEWS Sherly Leong APRN.CNP [address] [phone] [place] [address] Referral ID Status Reason Start Date Expiration Date V isits Requested Visits Authorized [id number] Closed Auto-Generate d Referral 11/24/2022 12/24/2023 1 1 [facility] for visit Narrative* Diagnostic Procedure Only (Routine) - Closed Specialty Diagnoses / Procedures Referred By Wendie t Referred To Contact [facility] Diagnoses Encounter for screening mammogram for breast cancer Procedures FLORENCIA SCREENING SCREENING MAMMOGRAPHY BI 2-VIEW BREAST INC CAD Janeth Olivo MD [address] [place] [address] [facility] [address] [place] [address] Referral ID Status Reason Start Date Expiration Date V isits Requested Visits Authorized [id number] Closed Auto-Generate d Referral 01/14/2021 02/13/2022 1 1 [facility] Advance Directives No Advanced Directives Records FoundDocuments on File Type Date 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 Advance Directive(s) 12/17/2020 6:50 AM Advance Directive(s) 12/04/2020 11:02 AM Advance Directive(s) 02/09/2016 3:37 PM Documents on File Type Date 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 Advance Directive(s) 12/17/2020 6:50 AM Advance Directive(s) 12/04/2020 11:02 AM Advance Directive(s) 02/09/2016 3:37 PM Latest Code Status on File Code Status Date Activated Date Inactivated Comments Full Code 02/22/2023 12:07 AM 02/22/2023 9:13 PM Question Answer Comments Full Code Order Discussed With: Patient Latest Code Status on File Code Status Date Activated Date Inactivated Comments Full Code 02/22/2023 12:07 AM 02/22/2023 9:13 PM Question Answer Comments Full Code Order Discussed With: Patient Reason for Referral Specialty Diagnoses / Procedures Referred By Contac t Referred To Contact Gastroenterology Diagnoses Functional diarrhea Procedures CONSULT TO GASTROENTEROLOGY OFFICE/OUTPATIENT [facility] 60-74 MINUTES Ruthie Nova, SERVANDO.[employer]CH LOGISTICS SUPERVISOR [address] [place] [address] Referral ID Status Reason Start Date Expiration Date Visits Requested Visits Authorized [id number] Pending Review PCP Requested Referral 10/02/2021 10/02/2022 1 1 Specialty Diagnoses / Procedures Referred By Contac t Referred To Contact Diagnoses Type 2 diabetes mellitus without complication, without long-term current use of insulin (HCC) Janeth Olivo MD [address] [place] [address] Referral ID Status Reason Start Date Expiration Date V isits Requested Visits Authorized [id number] Pending Review 1 1 Specialty Diagnoses / Procedures Referred By Contac t Referred To Contact Cardiology Diagnoses Bradycardia Heart block Murmur, cardiac Procedures CONSULT TO CARDIOLOGY OFFICE/OUTPATIENT [facility] 60-74 MINUTES Ruthie Nova, BLENDING MACHINE FEEDER.BRANCH LOGISTICS SUPERVISOR [address] [place] [address] Referral ID Status Reason Start Date Expiration Date Visits Requested Visits Authorized [id number] Pending Review PCP Requested Referral 3 03/02/2024 1 1 Summary Purpose Family History No Family History Records FoundNo Family History Records FoundNo Family History Records Found Additional Source Comments Source Comments (unrecognize d section and content) In the event this informatio n is protected by the Federal Confidentiality of Alcohol and Drug Abuse Patient Records regulations: The Federal rules restrict any use of the information to criminally investigate or prosecute any alcohol or drug abuse patient.[facility] the event this information is protected by the Federal Confidentiality of Alcohol and Drug Abuse Patient Records regulations: The Federal rules restrict any use of the information to criminally investigate or prosecute any alcohol or drug abuse patient.[facility] the event this information is protected by the Federal Confidentiality of Alcohol and Drug Abuse Patient Records regulations: The Federal rules restrict any use of the information to criminally investigate or prosecute any alcohol or drug abuse patient.[facility] the event this information is protected by the Federal Confidentiality of Alcohol and Drug Abuse Patient Records regulations: The Federal rules restrict any use of the information to criminally investigate or prosecute any alcohol or drug abuse patient.[facility] the event this information is protected by the Federal Confidentiality of Alcohol and Drug Abuse Patient Records regulations: The Federal rules restrict any use of the information to criminally investigate or prosecute any alcohol or drug abuse patient.[facility] the event this information is protected by the Federal Confidentiality of Alcohol and Drug Abuse Patient Records regulations: The Federal rules restrict any use of the information to criminally investigate or prosecute any alcohol or drug abuse patient.[facility] the event this information is protected by the Federal Confidentiality of Alcohol and Drug Abuse Patient Records regulations: The Federal rules restrict any use of the information to criminally investigate or prosecute any alcohol or drug abuse patient.[facility] the event this information is protected by the Federal Confidentiality of Alcohol and Drug Abuse Patient Records regulations: The Federal rules restrict any use of the information to criminally investigate or prosecute any alcohol or drug abuse patient.[facility] the event this information is protected by the Federal Confidentiality of Alcohol and Drug Abuse Patient Records regulations: The Federal rules restrict any use of the information to criminally investigate or prosecute any alcohol or drug abuse patient.[facility] the event this information is protected by the Federal Confidentiality of Alcohol and Drug Abuse Patient Records regulations: The Federal rules restrict any use of the information to criminally investigate or prosecute any alcohol or drug abuse patient.[facility] the event this information is protected by the Federal Confidentiality of Alcohol and Drug Abuse Patient Records regulations: The Federal rules restrict any use of the information to criminally investigate or prosecute any alcohol or drug abuse patient.[facility] the event this information is protected by the Federal Confidentiality of Alcohol and Drug Abuse Patient Records regulations: The Federal rules restrict any use of the information to criminally investigate or prosecute any alcohol or drug abuse patient.[facility] the event this information is protected by the Federal Confidentiality of Alcohol and Drug Abuse Patient Records regulations: The Federal rules restrict any use of the information to criminally investigate or prosecute any alcohol or drug abuse patient.[facility] the event this information is protected by the Federal Confidentiality of Alcohol and Drug Abuse Patient Records regulations: The Federal rules restrict any use of the information to criminally investigate or prosecute any alcohol or drug abuse patient.[facility] the event this information is protected by the Federal Confidentiality of Alcohol and Drug Abuse Patient Records regulations: The Federal rules restrict any use of the information to criminally investigate or prosecute any alcohol or drug abuse patient.[facility] the event this information is protected by the Federal Confidentiality of Alcohol and Drug Abuse Patient Records regulations: The Federal rules restrict any use of the information to criminally investigate or prosecute any alcohol or drug abuse patient.[facility] Hospital[facility] the event this information is protected by the Federal Confidentiality of Alcohol and Drug Abuse Patient Records regulations: The Federal rules restrict any use of the information to criminally investigate or prosecute any alcohol or drug abuse patient.[facility] the event this information is protected by the Federal Confidentiality of Alcohol and Drug Abuse Patient Records regulations: The Federal rules restrict any use of the information to criminally investigate or prosecute any alcohol or drug abuse patient.[facility] the event this information is protected by the Federal Confidentiality of Alcohol and Drug Abuse Patient Records regulations: The Federal rules restrict any use of the information to criminally investigate or prosecute any alcohol or drug abuse patient.[facility] the event this information is protected by the Federal Confidentiality of Alcohol and Drug Abuse Patient Records regulations: The Federal rules restrict any use of the information to criminally investigate or prosecute any alcohol or drug abuse patient.[facility] Reason for Visit (unrecogniz ed section and content) Reason Onset Date Comments Population Health Navigation Outreach 07/29/2021 [employer] care gap Reason Onset Date Comments Refill Request 10/15/2021 Reason Comments F/U 6 months Reason Comments Results Reason Comments Radiology US Specialty Diagnoses / Procedures Referred By Contac t Referred To Contact US IMAGING Diagnoses Elevated LFTs Procedures US ABD RT UPPER QUADRANT US ABDOMINAL REAL TIME W/IMAGE LIMITED Janeth Olivo MD [address] [place] [address] Us Imaging Referral ID Status Reason Start Date Expiration Date V isits Requested Visits Authorized [id number] Closed Auto-Generate d Referral 12/22/2021 01/21/2023 1 1 Reason Comments Medication Question Reason Comments Cough Pt reported bilatera l ear pain rated 1 , x 6 days. Reason Comments Established Patient Diabetic follow up Reason Comments left rib pain Fell 1 week ago Reason Onset Date Comments Transition Of Care 02/22/2023 TCM - Inpatie nt Outreach Reason Comments Hospital F/U Care Teams (unrecognized sec tion and content) Inspecting Supervisor Relationship Specialty Start Date End Date Janeth Olivo MD [address] [place] [address] PCP - General Internal Medicine 05/20/17 Inspecting Supervisor Relationship Specialty Start Date End Date Janeth Olivo MD [address] [place] [address] PCP - General Internal Medicine 05/20/17 Inspecting Supervisor Relationship Specialty Start Date End Date Janeth Olivo MD [address] [place] [address] PCP - General Internal Medicine 05/20/17 Inspecting Supervisor Relationship Specialty Start Date End Date Janeth Olivo MD [facility] [place] [address] PCP - General Internal Medicine 05/20/17 Inspecting Supervisor Relationship Specialty Start Date End Date Janeth Olivo MD [address] [place] [address], [place] [address] PCP - General Internal Medicine 05/20/17 Inspecting Supervisor Relationship Specialty Start Date End Date Janeth Olivo MD [address] [place] [address], [place] [address] PCP - General Internal Medicine 05/20/17 Inspecting Supervisor Relationship Specialty Start Date End Date Janeth Olivo MD [facility] [place] [address] PCP - General Internal Medicine 05/20/17 Inspecting Supervisor Relationship Specialty Start Date End Date Janeth lOivo MD [facility] [place] [address] PCP - General Internal Medicine 05/20/17 Inspecting Supervisor Relationship Specialty Start Date End Date Janeth Olivo MD [address] [place] [address], [place] [address] PCP - General Internal Medicine 05/20/17 Inspecting Supervisor Relationship Specialty Start Date End Date Janeth Olivo MD [address] [place] [address], [place] [address] PCP - General Internal Medicine 05/20/17 Inspecting Supervisor Relationship Specialty Start Date End Date Janeth Olivo MD [address] [place] [address] PCP - General Internal Medicine 05/20/17 Inspecting Supervisor Relationship Specialty Start Date End Date Janeth Olivo MD [address] [place] [address] PCP - General Internal Medicine 05/20/17 Inspecting Supervisor Relationship Specialty Start Date End Date Janeth Olivo MD [address] [place] [address] PCP - General Internal Medicine 05/20/17 Inspecting Supervisor Relationship Specialty Start Date End Date Janeth Olivo MD [address] [place] [address] PCP - General Internal Medicine 05/20/17 Inspecting Supervisor Relationship Specialty Start Date End Date Janeth Olivo MD [address] [place] [address] PCP - General Internal Medicine 05/20/17 Inspecting Supervisor Relationship Specialty Start Date End Date Janeth Olivo MD [address] [place] [address] PCP - General Internal Medicine 05/20/17 Inspecting Supervisor Relationship Specialty Start Date End Date Janeth Olivo MD [address] [place] [address] PCP - General Internal Medicine 05/20/17 Inspecting Supervisor Relationship Specialty Start Date End Date Janeth Olivo MD [address] [place] [address] PCP - General Internal Medicine 05/20/17 Omayra Ramírez, RADHA [address] [place], [place] [id number] Primary Care Social Work Nurse 02/23/23 03/23/23 Inspecting Supervisor Relationship Specialty Start Date End Date Janeth Olivo MD [address] [place] [address] PCP - General Internal Medicine 05/20/17 Omayra Ramírez RN [address] [place] [address] Primary Care Social Work Nurse 02/23/23 03/23/23 INFORMATION SOURCE (unrecogn ized section and content) DATE CREATED AUTHOR AUTHOR'S ORGANIZ ATION 03/12/2023 [facility] DATE CREATED AUTHOR AUTHOR'S ORGANIZ ATION 04/03/2023 [facility] FOR RECORDS PERTAINING TO PATIENTS WHO ARE OR HAVE BEEN ENROLLED IN A CHEMICAL DEPENDENCY/SUBSTANCEABUSE PROGRAM, SOME INFORMATION MAY BE OMITTED. This clinical summary was aggregated from multiple sources. Caution should be exercised in using it in the provision of clinical care. This summary normalizes information from multiple sources, and as a consequence, information in this document may materially change the coding, format and clinical context of patient data. In addition, data may be omitted in some cases. CLINICAL DECISIONS SHOULD BE BASED ON THE PRIMARY CLINICAL RECORDS. [facility]. provides no warranty or guarantee of the accuracy or completeness of information in this document.
[2023-04-04 15:48] LABS: Bacteria 0 SEEN /hpf (None Seen); Mucous, Urine 0 SEEN /hpf (<or=2+)
[2023-04-04 16:47] LABS: Hematocrit 47.2 % (37-47); Hemoglobin 15.2 g/dL (12.0-15.0); Mean Corp Hgb Conc 32.2 g/dL (32-36); Mean Corpuscular Hgb 30.3 pg (27.0-32.0); Mean Corpuscular Volume 94.2 fL (81-99); Mean Platelet Vol. 11.8 fl (6.2-12.0); Platelet Count 178 K/mm3 (150-450); RBC Distribution Width CV 12.5 % (11.6-14.6); RBC Distribution Width SD 43.2 fl (35.1-43.9); Red Blood Count 5.01 M/mm3 (4.2-5.4); White Blood Count 9.7 K/mm3 (4.4-11.0)
[2023-04-04 16:53] LABS: Color, Urine Yellow (Yellow); Glucose, Dipstick Normal (Normal); Ketone-Dipstick Negative (Negative); Leukocyte Esterase-Dipstick 500 /ul (Negative); Nitrite-Dipstick Negative (Negative); Occult Blood-Urine 10 /ul (Negative); Protein-Dipstick 15 mg/dl (Negative); Specific Gravity, Urine 1.015 (1.002-1.030); Urine Bilirubin Dipstick Negative (Negative); Urine Clarity Sl. Cloudy (Clear); Urine Urobilinogen Normal (Normal)
[2023-04-04 17:02] LABS: International Normalized Ratio 1.3; Prothrombin Time (Protime)PT. 16.5 SECONDS (11.7-14.9)
[2023-04-04 17:07] LABS: Red Blood Cells-Urine 0-5 SEEN /hpf (0-5); Squamous Epithelial Cells - UA 0-5 SEEN /hpf (5-10); Transitional Epithelial - Ur 0-5 SEEN /hpf (0-5); White Blood Cells 50-100 SEEN /hpf (0-5)
[2023-04-04 17:08] LABS: Amorphous Sediment 1+ PHOS; Renal Epithelial Cells 0-5 SEEN /hpf (0-5)
[2023-04-04 17:14] LABS: Anion Gap 6 (5-15); BUN 17 mg/dL (7-18); Calcium,Total 9.6 mg/dL (8.5-10.1); Chloride 106 mmol/L (98-107); Creatinine, Serum 0.77 mg/dL (0.55-1.02); EST Glomerular Filtration Rate 77 mL/min (>60); Est Glom Filt Rate - Afr Amer 93 mL/min (>60); Glucose 107 mg/dL (74-106); Potassium 3.7 mmol/L (3.5-5.1); Sodium Level 139 mmol/L (136-145)
== END | disposition home or self-care (01) ==
PROVIDERS: PCP Internal Medicine; Referring Provider Physician Assistant Medical; Visit Provider Physician Assistant Medical
DX: I44.1 Atrioventricular block, second degree (principal); I44.2 Atrioventricular block, complete; I35.0 Nonrheumatic aortic (valve) stenosis
CPT/HCPCS: 36415; 71046; 80048; 81001; 85027; 85610

== ENCOUNTER 2023-04-11 14:59 | Observation (INO) | payer MEDICARE, SELFPAY ==
[2023-04-08 08:32] VITALS: BMI 27.4
--- OUTSIDE RECORDS SUMMARY | 2023-04-11 06:30 | XMS RPT_ITS | CCD ---
Author Name Unknown Address [address] [place] [address] Organization [facility] Care Team Providers Care Dry Charge Process Attendant Name Role Phone Geovani OROZCO, Janeth Telles Primary Care Provider Geovani OROZCO, Janeth Telles Primary Care Provider Mally Borden RN, Omayra Unavailable JILL MARTE Consulting Unavaila ble JR ALEJANDRO Attending Unavailable TALAMPAS, JANETH D Primary Care [...] sources) levoFLOXacin; Translations: [LEVOFLOXACIN] Drug Allergy 9 [facility] Work Phone: (20 sources) PARoxetine; Translations: [PAROXETINE HCL] Drug Allergy 5 [facility] Work Phone: (20 sources) Sertraline; Translations: [SERTRALINE HCL] Drug Allergy 5 [facility] Work Phone: (20 sources) Sulfamethoxazole / Trimethoprim; Translations: [SULFAMETHOXAZOLE-TRI METHOPRIM] Drug Allergy 5 [facility] Work Phone: Medications Current Medications Medication [...] 13:45-0500 Diastolic blood pressure 53 mm[Hg] Ruthie oNva WIRELESS CONSULTANT.CERTIFIED NURSE MIDWIFE Work Phone: [facility] 03-03-2023 13:45-0500 Heart rate 52 /min Ruthiekyaw Nova WIRELESS CONSULTANT.CERTIFIED NURSE MIDWIFE Work Phone: [facility] 03-03-2023 13:45-0500 Systolic blood pressure 146 mm[Hg] Ruthie Avtar WIRELESS CONSULTANT.CERTIFIED NURSE MIDWIFE Work Phone: [facility] 03-03-2023 13:44-0500 Body weight 75.75 kg Ruthie Nova WIRELESS CONSULTANT.CERTIFIED NURSE MIDWIFE Work Phone: [facility] 03-03-2023 13:44-0500 Respiratory rate 16 /min Ruthie Nova WIRELESS CONSULTANT.CERTIFIED NURSE MIDWIFE Work Phone: [facility] 11-24-2022 14:14-0400 Body temperature 98.6 [degF] Sherly Leong WIRELESS CONSULTANT.BORDER MEASURER AND CUTTER Work Phone: [facility] 11-24-2022 14:14-0400 Body weight 74.39 kg Sherly Leong WIRELESS CONSULTANT.BORDER MEASURER AND CUTTER Work Phone: [facility] 11-24-2022 14:14-0400 Diastolic blood pressure 78 mm[Hg] Sherly Leong WIRELESS CONSULTANT.BORDER MEASURER AND CUTTER Work Phone: [facility] 11-24-2022 14:14-0400 Heart rate 98 /min Sherly Leong WIRELESS CONSULTANT.BORDER MEASURER AND CUTTER Work Phone: [facility] 11-24-2022 14:14-0400 Respiratory rate 18 /min Sherly Leong WIRELESS CONSULTANT.BORDER MEASURER AND CUTTER Work Phone: [facility] 11-24-2022 14:14-0400 SaO2% (BldA) [Mass fraction] 94 % Sherly Leong WIRELESS CONSULTANT.BORDER MEASURER AND CUTTER Work Phone: [facility] 11-24-2022 14:14-0400 Systolic blood pressure 132 mm[Hg] Sherly Leong WIRELESS CONSULTANT.BORDER MEASURER AND CUTTER Work Phone: [facility] 09-17-2022 17:54-0400 Diastolic blood pressure 70 mm[Hg] Janeth Olivo MD Work Phone: [facility] 09-17-2022 17:54-0400 Systolic blood pressure 130 mm[Hg] Janeth Olivo MD Work Phone: [facility] 09-17-2022 16:55-0400 Body temperature 99.19 [degF] Janeth Olivo MD Work Phone: [facility] 09-17-2022 16:55-0400 Body weight 75.3 kg Janeth Olivo MD Work Phone: [facility] 09-17-2022 16:55-0400 Heart rate 95 /min Janeth Olivo MD Work Phone: [facility] 09-17-2022 16:55-0400 Respiratory rate 18 /min Janeth Olivo MD Work Phone: [facility] 09-17-2022 16:55-0400 SaO2% (BldA) [Mass fraction] 96 % Janeth Olivo MD Work Phone: [facility] 02-20-2022 13:06-0500 Body temperature 98.49 [degF] Tracey Solomon WIRELESS CONSULTANT.BORDER MEASURER AND CUTTER Work Phone: [facility] 02-20-2022 13:06-0500 Body weight 75.48 kg Tracey Solomon WIRELESS CONSULTANT.BORDER MEASURER AND CUTTER Work Phone: [facility] 02-20-2022 13:06-0500 Diastolic blood pressure 74 mm[Hg] Tracey Solomon WIRELESS CONSULTANT.BORDER MEASURER AND CUTTER Work Phone: [facility] 02-20-2022 13:06-0500 Heart rate 101 /min Tracey Solomon WIRELESS CONSULTANT.BORDER MEASURER AND CUTTER Work Phone: [facility] 02-20-2022 13:06-0500 Respiratory rate 18 /min Tracey Solomon WIRELESS CONSULTANT.BORDER MEASURER AND CUTTER Work Phone: [facility] 02-20-2022 13:06-0500 SaO2% (BldA) [Mass fraction] 96 % Tracey Solomon WIRELESS CONSULTANT.BORDER MEASURER AND CUTTER Work Phone: [facility] 02-20-2022 13:06-0500 Systolic blood pressure 138 mm[Hg] Tracey Solomon WIRELESS CONSULTANT.BORDER MEASURER AND CUTTER Work Phone: [facility] 12-04-2021 16:11-0400 Body weight 73.03 kg Janeth Olivo MD Work Phone: [facility] 12-04-2021 16:11-0400 Diastolic blood pressure 72 mm[Hg] Janeth Olivo MD Work Phone: [facility] 12-04-2021 16:11-0400 Heart rate 93 /min Janeth Olivo MD Work Phone: [facility] 12-04-2021 16:11-0400 SaO2% (BldA) [Mass fraction] 94 % Janeth Olivo MD Work Phone: [facility] 12-04-2021 16:11-0400 Systolic blood pressure 136 mm[Hg] Janeth Olivo MD Work Phone: [facility] 06-11-2021 13:41-0400 Body weight 73.94 kg Ruthie Nova WIRELESS CONSULTANT.CERTIFIED NURSE MIDWIFE Work Phone: [facility] 06-11-2021 13:41-0400 Diastolic blood pressure 68 mm[Hg] Ruthie Nova WIRELESS CONSULTANT.CERTIFIED NURSE MIDWIFE Work Phone: [facility] 06-11-2021 13:41-0400 Heart rate 92 /min Ruthie Nova WIRELESS CONSULTANT.CERTIFIED NURSE MIDWIFE Work Phone: [facility] 06-11-2021 13:41-0400 Respiratory rate 16 /min Ruthie Nova WIRELESS CONSULTANT.CERTIFIED NURSE MIDWIFE Work Phone: [facility] 06-11-2021 13:41-0400 Systolic blood pressure 136 mm[Hg] Ruthie Nova WIRELESS CONSULTANT.CERTIFIED NURSE MIDWIFE Work Phone: [facility] Encounters Encounter Date Encounter Type Care Provider Facility Start: 03-10-2023 End: 03-10-2023 ambulatory [facility] Facility:[facility] [place] Start: 03-03-2023 End: 03-03-2023 ambulatory [facility] Facility:[facility] [place] Start: 03-03-2023 End: 03-03-2023 Patient encounter procedure Ruthie Nova WIRELESS CONSULTANT.CERTIFIED NURSE MIDWIFE Work Phone: [facility] Procedures Date Procedure Procedure Detail Performing Clinician Start: 03-03-2023 INFLUENZA VACCINE, P RSV FREE, AGE 65+ YR, HIGH DOSE, QUADRIVALENT (FLUZONE HIGH-DOSE) Ruthie Nova WIRELESS CONSULTANT.CERTIFIED NURSE MIDWIFE Work Phone: Start: 03-03-2023 [employer] COVI D-19 VACCINE (2023-24 SEASON) AGE 12+ YR Ruthie Hartleys WIRELESS CONSULTANT.CERTIFIED NURSE MIDWIFE Work Phone: Start: 12-29-2021 Us abdominal real ti me w/image limited Janeth Olivo MD Work Phone: Start: 07-20-2021 Screening mammograph y bi 2-view breast inc cad Bulk Order Provider Start: 12-17-2020 Colonoscopy Ruthie jacques WIRELESS CONSULTANT.CERTIFIED NURSE MIDWIFE Work Phone: Start: 11-11-2020 Adult depression scr eening assessment Ruthiekyaw Nova WIRELESS CONSULTANT.CERTIFIED NURSE MIDWIFE Work Phone: Plan of Treatment Date Care Activity Detail Author Start: 11-30-2027 Urine microalbumin profile [facility] Start: 12-17-2025 Colonoscopy COLONOSCOPY [facility] Start: 12-17-2025 COLORECTAL CANCER SCREENING COLORECTAL CANCER SCREENING [facility] Start: 02-22-2024 Glaucoma screening Dilated Retinal E xam [facility] Start: 02-22-2024 Hepatitis C antibody , confirmatory test Dilated Retinal Exam [facility] Start: 09-29-2023 Hepatitis B screening URINE AL BUMIN:CREATININE RATIO [facility] Start: 09-29-2023 Hepatitis B surface antibody level LDL CHOLESTEROL [facility] Start: 09-18-2023 ANNUAL PCP TEAM OPHTHALMIC MEDICAL TECHNICIAN MIRIAM DISEASE VISIT ANNUAL PCP TEAM CHRONIC DISEASE VISIT [facility] Start: 03-31-2023 Hemoglobin A1c measurement HbA1C [facility] Start: 03-31-2023 Hemoglobin A1c/Hemoglobin.total in Blood HBA1C [facility] Start: 12-04-2022 3 comp foot exam completed DIABETIC FOOT EXAM [facility] Start: 12-04-2022 ANNUAL PCP TEAM OPHTHALMIC MEDICAL TECHNICIAN MIRIAM DISEASE VISIT ANNUAL PCP TEAM CHRONIC DISEASE VISIT [facility] Start: 12-04-2022 COVID-19 VACCINE (4 - Booster for Pfizer series) COVID-19 VACCINE (4 - Booster for Pfizer series) [facility] Immunizations Immunization Date Immunization Notes Care Provider Fa rosi 03-03-2023 COVID-19 vaccine, ag e 12+ yr, season (PFIZER-BIONTECH) Ruthie Avtar WIRELESS CONSULTANT.CERTIFIED NURSE MIDWIFE Work Phone: [facility] Work Phone: 03-03-2023 influenza (HD-IIV4) vaccine, age 65+ yr, high dose, quadrivalent, PF (FLUZONE HIGH-DOSE) Ruthie Nova WIRELESS CONSULTANT.CERTIFIED NURSE MIDWIFE Work Phone: [facility] Work Phone: 01-15-2021 influenza (aIIV4) vaccine, age 65+ yr, quadrivalent, PF (FLUAD QUADRIVALENT) Ruthie Nova WIRELESS CONSULTANT.CERTIFIED NURSE MIDWIFE Work Phone: [facility] Work Phone: 01-15-2021 influenza, injectabl e, quadrivalent, preservative free Ruthie Nova WIRELESS CONSULTANT.CERTIFIED NURSE MIDWIFE Work Phone: [facility] 01-15-2021 influenza virus vaccine, unspecified formulation Blas Baird [facility] 12-09-2020 zoster vaccine recombinant Ruthie Nova WIRELESS CONSULTANT.CERTIFIED NURSE MIDWIFE Work Phone: [facility] Work Phone: 12-09-2020 zoster vaccine, unspecified formulation Ruthie Nova WIRELESS CONSULTANT.CERTIFIED NURSE MIDWIFE Work Phone: [facility] 06-10-2020 zoster vaccine recombinant Ruthie Nova WIRELESS CONSULTANT.CERTIFIED NURSE MIDWIFE Work Phone: [facility] Work Phone: 06-10-2020 zoster vaccine, unspecified formulation Ruthie Nova WIRELESS CONSULTANT.CERTIFIED NURSE MIDWIFE Work Phone: [facility] 06-09-2020 zoster vaccine recombinant Ruthie Nova WIRELESS CONSULTANT.CERTIFIED NURSE MIDWIFE Work Phone: [facility] Work Phone: 01-14-2020 influenza, high dose seasonal, preservative-free Ruthie Nova WIRELESS CONSULTANT.CERTIFIED NURSE MIDWIFE Work Phone: [facility] Work Phone: 01-14-2020 influenza, high-dose , quadrivalent vaccine (FLUZONE HIGH DOSE QUADRIVALENT) Ruthie Nova WIRELESS CONSULTANT.CERTIFIED NURSE MIDWIFE Work Phone: [facility] Work Phone: 01-14-2020 influenza, injectabl e, quadrivalent, preservative free Ruthie Nova WIRELESS CONSULTANT.CERTIFIED NURSE MIDWIFE Work Phone: [facility] 12-25-2018 influenza, high dose seasonal, preservative-free Ruthie Nova WIRELESS CONSULTANT.CERTIFIED NURSE MIDWIFE Work Phone: [facility] 11-29-2017 tetanus toxoid, redu tim diphtheria toxoid, and acellular pertussis vaccine, adsorbed Ruthie Nova WIRELESS CONSULTANT.CERTIFIED NURSE MIDWIFE Work Phone: [facility] Work Phone: 11-23-2017 influenza, high dose seasonal, preservative-free Ruthie Nova WIRELESS CONSULTANT.CERTIFIED NURSE MIDWIFE Work Phone: [facility] 01-17-2017 influenza, high dose seasonal, preservative-free Ruthie Nova WIRELESS CONSULTANT.CERTIFIED NURSE MIDWIFE Work Phone: [facility] Work Phone: 12-04-2015 influenza, high dose seasonal, preservative-free Ruthie Nova WIRELESS CONSULTANT.CERTIFIED NURSE MIDWIFE Work Phone: [facility] Work Phone: 02-27-2015 zoster vaccine, live Ruthie B roger WIRELESS CONSULTANT.CERTIFIED NURSE MIDWIFE Work Phone: [facility] Work Phone: 01-22-2015 pneumococcal polysaccharide vaccine, 23 valent Ruthie Nova WIRELESS CONSULTANT.CERTIFIED NURSE MIDWIFE Work Phone: [facility] 01-07-2014 pneumococcal conjuga te vaccine, 13 valent Ruthie Nova WIRELESS CONSULTANT.CERTIFIED NURSE MIDWIFE Work Phone: [facility] 12-04-2011 influenza virus vaccine, unspecified formulation Ruthie Nova WIRELESS CONSULTANT.CERTIFIED NURSE MIDWIFE Work Phone: [facility] 12-16-2010 influenza virus vaccine, unspecified formulation Ruthie Nova WIRELESS CONSULTANT.CERTIFIED NURSE MIDWIFE Work Phone: [facility] Work Phone: 01-17-2007 influenza virus vaccine, unspecified formulation Ruthie Nova WIRELESS CONSULTANT.CERTIFIED NURSE MIDWIFE Work Phone: [facility] Work Phone: 08-18-2006 pneumococcal polysaccharide vaccine, 23 valent Ruthie Nova SERVANDO.CERTIFIED NURSE MIDWIFE Work Phone: [facility] Work Phone: 01-26-2005 influenza virus vaccine, unspecified formulation Ruthie Nova SERVANDO.CERTIFIED NURSE MIDWIFE Work Phone: [facility] Work Phone: 11-13-2004 diphtheria and tetan us toxoids, adsorbed for pediatric use Ruthie Nova SERVANDO.CERTIFIED NURSE MIDWIFE Work Phone: [facility] Work Phone: NEGATED: Highlighted row has not occurred!02-21-2023 COVID-19 vaccine, age 12+ yr, season ([employer] Blas Quinnpadmini [facility] Work Phone: NEGATED: Highlighted row has not occurred!02-21-2023 influenza (HD-IIV4) vaccine, age 65+ yr, high dose, quadrivalent, PF (FLUZONE HIGH-DOSE) Blas Quinnpadmini [facility] Work Phone: Payers Date Payer Category Payer Medicare HUMANA MEDICARE HU[employer]NA GOLD PLUS [id number] 2020-Present [phone] [address] [address] [place] [id number] O [id number] 2020 Medicare HUMANA MEDICARE HU[employer]NA GOLD PLUS [id number] 2020-Present [phone] [address] [address] [place] [address] O [id number] 2020 Private Health Insurance [id number] 1945 Unknown [id number] Private Health Insurance Social History Date Type Detail Facility Start: 12-04-2021 Tobacco smoking status NHIS Never smoked tobacco [facility] Work Phone: Start: 06-11-2021 End: 03-03-2023 Alcohol intake Current drinker of alcohol (finding) [facility] Start: 06-11-2021 End: 09-17-2022 Alcohol intake [facility] Start: 06-22-2019 History SDOH Alcohol Frequency 3 [facility] Start: 06-22-2019 History SDOH Alcohol Std Drinks 1 [facility] Start: 12-17-2020 History SDOH Alcohol Comment glass of wine 2 times per week [facility] Start: 06-22-2019 History SDOH Social Connections Phone 5 [facility] Start: 06-22-2019 History SDOH Social Connections Get Together 2 [facility] Start: 06-22-2019 History SDOH Physical Activity DPW 0 [facility] Start: 06-22-2019 History SDOH Financial 4 [facility] Start: 06-22-2019 Education 17 [facility] Start: 1945 Sex Assigned At Female [facility] Start: 06-01-2021 End: 02-20-2022 Exposure to SARS-CoV-2 (event) Not sure [facility] Work Phone: Start: 12-04-2021 Tobacco use and exposure Smokeless tobacco non-user [facility] Start: 12-13-2021 End: 12-23-2021 Exposure to SARS-CoV-2 (event) Unable to assess [facility] Work Phone: Start: 06-22-2019 End: 09-17-2022 Social connection and isolation panel [facility] Do you belong to any clubs or organizations such as congregational groups, unions, fraternal or athletic groups, or school groups? No [facility] Are you now , , , , never or living with a partner? [facility] How often to you hav e a drink containing alcohol? 2-4 times a month [facility] How many standard dr inks containing alcohol do you have on a typical day? 1 or 2 [facility] How often do you hav e 6 or more drinks on 1 occasion? Never [facility] How hard is it for y ou to pay for the very basics like food, housing, medical care, and heating Not very hard [facility] Adult Depression Screening Assessment 0 [facility] Do you feel stress - tense, restless, nervous, or anxious, or unable to sleep at night because your mind is troubled all the time - these days [OSQ] Not at all [facility] (I/We) worried wheth er (my/our) food would run out before (I/we) got money to buy more. Never true [facility] Start: 11-19-2020 Gender identity Identifies as female gender (finding) [facility] Start: 11-19-2020 Sexual orientation Heterosexual (finding) [facility] Medical Equipment Procedure Code Equipment Code Equipment Origin al Text Equipment Identifier Dates Start: 08-25-2006 End: 09-17-2022 Clinical Notes 01-22-2015 to 03-10-2023 Patient InstructionsBroRuthie dubon APRN.CERTIFIED NURSE MIDWIFE - 03/03/2023 1:40 PM Blas Treadwell - 02/23/2023 10:37 AM Blas Treadwell - 02/22/2023 2:14 PM Sherly Russo APRN.BORDER MEASURER AND CUTTER - 11/24/2022 2:20 PM EDT Note Date & Type Note Facility 03-10-2023 Note HNO ID: [id number] Author: Ruthie Nova APRN.CERTIFIED NURSE MIDWIFE Service: ? Author Type: Nurse Specialist Type: [...] emergency department. She prefers to go to [facility] by private transport, to drive. She reports being seen by outside hospital check cashier at [facility] and had echocardiogram completed at their office several days ago. Still has not received outside check cashier review of echocardiogram results. She prefers to follow-up with [facility] providers. She currently notes shortness of breath [...] than 130/80 lisinop (more content not included)... [facility] 03-03-2023 Note HNO ID: [id number] Author: Ruthie Nova APRN.CERTIFIED NURSE MIDWIFE Service: ? Author Type: Nurse Specialist Type: [...] hyperlipidemia Medication review completed Yes Ruthie Nova APRN.CERTIFIED NURSE MIDWIFE Provider Documentation: In follow-up of hospitalization, Wendy [...] She reports being seen by outside hospital check cashier at [facility] and had echocardiogram completed at their office several days ago. Still has not received outside check cashier review of echocardiogram results. She prefers to follow-up with [facility] providers. She currently notes shortness of breath [...] Lymph 1.00 - 4.00 k/uL 1.84 2.05 Howell% % 12.1 16.0 Abs Howell <0.87 k/uL 0.79 1.09 (H) Eosin% % [...] by outside hos (more content not included)... [facility] 03-03-2023 Instructions Ruthie Nova APRN.CNS - 03/03/2023 2:14 PM EST Call to schedule a cardiology appointment (see Wine[employer] message) [phone]. Go to the ER ofr any severe or concerning symptoms documented in this encounter [facility] 03-03-2023 History of Present illness Narrative Transitional Care Management Progress Note The patients TCM visit was performed within the 14 days of discharge. Date of admission February 21, 2023 Patient's Date of discharge: February 22, 2023 Date of initial coordinator contact after discharge: February 23, 2023 Discharge diagnosis: Bradycardia hypertension hyperlipidemia Medication review completed Yes Ruthie Nova APRN.CNS Provider Documentation: In follow-up of hospitalization, Wendy [...] She reports being seen by outside hospital check cashier at [facility] and had echocardiogram completed at their office several days ago. Still has not received outside check cashier review of echocardiogram results. She prefers to follow-up with [facility] providers. She currently notes shortness of breath [...] Ref Rng & Units 02/21/2023 02/21/2023 02/21/2023 02/22/202302/22/2023 02/22/2023 9:20 PM 10:21 PM 11:00 PM [...] Lymph 1.00 - 4.00 k/uL 1.84 2.05 Howell% % 12.1 16.0 Abs Howell <0.87 k/uL 0.79 1.09 (H) Eosin% % [...] She reports being seen by outside hospital check cashier when she was at [facility]. She reports echocardiogram completed at their office but has no report yet regarding this. She prefers to see a [facility] check cashier. Will request echo report. - ECHO - [...] YR, HIGH DOSE, QUADRIVALENT (FLUZONE HIGH-DOSE) - [employer] COVID-19 VACCINE (2022- SEASON) AGE 12+ YR Ruthie Nova APRN.CNS March 03, 2023 12:56 PM documented in this encounter [facility] 02-23-2023 Note HNO ID: [id number] Author: Omayra Ramírez RN Service: ? Author Type: Registered Nurse Type: Progress Notes Filed: 02/25/2023 4:27 PM Note Text: TCM Home Visit Referral Source of Stratification: [facility] Admission Status: Discharged Readmission Risk Score: [...] a voicemail to return my call at [phone]. Will attempt to outreach to patient again later today or tomorrrow if no return call from patient. SUMMARY: Discharge Network Status: In-Network Discharge Pt discharged from [facility] on 02/22/2023. Admitted for: bradycardia Contact made with patient: No - next outreach attempt will be on next business day Outreach ended Omayra Borden RN February 23, 2023 2:04 PM [facility] 02-23-2023 Note Patient Outreach ([facility] WENDY SHIPLEY ([id number]) 1945 F Date Time Provider Department 02/23/23 OMAYRA RAMÍREZ AMBBLAKEG During your visit today, we recorded the following information about you: Omayra Ramírez, RADHA 02/25/2023 4:27 PM Signed TCM Home Visit Referral Source of Stratification: [facility] Admission Status: Discharged Readmission Risk Score: [...] a voicemail to return my call at [phone]. Will attempt to outreach to patient again later today or tomorrrow if no return call from patient. SUMMARY: Discharge Network Status: In-Network Discharge Pt discharged from [facility] on 02/22/2023. Admitted for: bradycardia Contact made with patient: No - next outreach attempt will be on next business day Outreach ended Omayra Borden RN February [...] In 1 cup water (Namebrand Metamucil) - Wggmbjrcsxrer-Jfcsczse-Kijiig (MULTIVITAMIN 50 PLUS) tab Take 1 tablet [...] Encounter Status:Closed by OMAYRA RAMÍREZ on 02/25/23 [facility] 02-23-2023 Note HNO ID: [id number] Author: Blas Baird Service: ? Author Type: ? Type: Progress Notes Filed: 02/23/2023 10:41 AM Note Text: Transition Care Management (TCM) Inpatient Outreach Provider Action/ TCM - Inpatient Outreach NOTE - The discharge process was completed prior to [facility] making 2nd Inpatient Outreach call. Patient is active on My Chart; a Secure message was sent with the information of the upcoming RN Outreach call. Summary: Patient admitted to [facility] Patient admitted on 02/21/23 Admitted for Bradycardia Contact made with patient: Bettie Alvarez, my name is Blas Baird and I am calling from the [facility] on behalf of Janeth Olivo MD. I am sorry that I missed you today, but your care is important to us, and we would like to touch base with you. The discharge process was completed prior to [facility] making 2nd Inpatient Outreach call. Patient is active on My Chart; a Secure message was sent with the information of the upcoming RN Outreach call. Thank you and have a great day. Outreach ended. Blas Baird February 23, 2023 [facility] 02-23-2023 History of Present illness Narrative Transition Care Management (TCM) Inpatient Outreach Provider Action/FYI TCM - Inpatient Outreach NOTE - The discharge process was completed prior to [facility] making 2nd Inpatient Outreach call. Patient is active on My Chart; a Secure message was sent with the information of the upcoming RN Outreach call. Summary: Patient admitted to [facility] Patient admitted on 02/21/23 Admitted for Bradycardia Contact made with patient: Bettie Alvarez, my name is Blas Baird and I am calling from the [facility] on behalf of Janeth Olivo MD. I am sorry that I missed you today, but your care is important to us, and we would like to touch base with you. The discharge process was completed prior to [facility] making 2nd Inpatient Outreach call. Patient is active on My Chart; a Secure message was sent with the information of the upcoming RN Outreach call. Thank you and have a great day. Outreach ended. Blas Baird February 23, 2023 Transition Care Management (TCM) Inpatient Outreach Provider Action/FYI TCM - Inpatient Outreach NOTE - 1st Call No Contact Summary: Patient admitted to [facility] Patient admitted on 02/21/23 Admitted for Bradycardia Contact made with patient: Bettie Alvarez, my name is Blas Olguin Joepadmini and I am calling from the [facility] on behalf of Janeth Olivo MD. [...] February 22, 2023 documented in this encounter [facility] 02-22-2023 Note HNO ID: [id number] Author: Blas Baird Service: ? Author Type: ? Type: Progress Notes Filed: 02/23/2023 10:41 AM Note Text: Transition Care Management (TCM) Inpatient Outreach Provider Action/FYI TCM - Inpatient Outreach NOTE - 1st Call No Contact Summary: Patient admitted to [facility] Patient admitted on 02/21/23 Admitted for Bradycardia Contact made with patient: Bettie Alvarez, my name is Blas Olguin Brie and I am calling from the [facility] on behalf of Janeth Olivo MD. I am sorry that I missed you today, but your care is important to us, and we would like to touch base with you. We will attempt to reach you again later today, 02/22/23, tomorrow, 02/23/23 or through a [employer] Secure Patient Message. Thank you and have a great day. Outreach ended. Blas Baird February 22, 2023 [facility] 02-22-2023 Note Patient Outreach ([place] [facility] [place] WENDY SHIPLEY ([id number]) 1945 F Date Time Provider Department 02/22/23 BLAS BAIRD ([facility] [facility] [place] your visit today, we recorded the following information about you: Blas Baird 02/23/2023 10:41 AM Signed Transition Care Management (TCM) Inpatient Outreach Provider Action/ TCM - Inpatient Outreach NOTE - 1st Call No Contact Summary: Patient admitted to [facility] Patient admitted on 02/21/23 Admitted for Bradycardia Contact made with patient: Bettie Alvarez, my name is Blas Baird and I am calling from the [facility] on behalf of Janeth Olivo MD. I am sorry that I missed you today, but your care is important to us, and we would like to touch base with you. We will attempt to reach you again later today, 02/22/23, tomorrow, 02/23/23 or through a [employer] Secure Patient Message. Thank you and have a great day. Outreach ended. Blas Baird February 22, 2023 Blas Baird 02/23/2023 10:41 AM Signed Transition Care Management (TCM) Inpatient Outreach Provider Action/FYI TCM - Inpatient Outreach NOTE - The discharge process was completed prior to [facility] making 2nd Inpatient Outreach call. Patient is active on My Chart; a Secure message was sent with the information of the upcoming RN Outreach call. Summary: Patient admitted to [facility] Patient admitted on 02/21/23 Admitted for Bradycardia Contact made with patient: Btetie Alvarez, my name is Blas Baird and I am calling from the [facility] on behalf of Janeth Olivo MD. I am sorry that I missed you today, but your care is important to us, and we would like to touch base with you. The discharge process was completed prior to [facility] making 2nd Inpatient Outreach call. Patient is [...] In 1 cup water (Namebrand Metamucil) - Jwcilppkvocrw-Vsytfgro-Jvvlgj (MULTIVITAMIN 50 PLUS) tab Take 1 tablet [...] heart failure (HC (more content not included)... [facility] 02-21-2023 Note HNO ID: [id number] Author: Delisa Colunga RT(Demetrius) Service: ? Author [...] RT Norma(Demetrius) February 21, 2023 9:17 PM [facility] 02-21-2023 Note HNO ID: [id number] Author: Ruthie Nova APRN.CERTIFIED NURSE MIDWIFE Service: ? Author Type: Nurse Specialist Type: [...] cup water (Namebr (more content not included)... [facility] 11-24-2022 Note HNO ID: [id number] Author: Mary Argueta RT(R) Service: Radiology Author [...] RT Anabella(R) November 24, 2022 2:27 PM [facility] 11-24-2022 Note HNO ID: [id number] Author: Sherly Leong APRN.BORDER MEASURER AND CUTTER Service: ? Author Type: Nurse Practitioner Type: Progress Notes Filed: 11/24/2022 3:18 PM Note Text: This note was created using NoteWriter. Subjective Wendy Shipley is a 77 year old female. 77 year old female with PMH DM, HTN, hyperlipidemia and obesity presents for complaints of illness. Acute onset one week ago States she was in [place] at her sons. Endorses she was assisting [...] history is provided by the patient. No xerox machine assembler was used. Fall Incident onset: 1 week [...] In 1 cup water (Namebrand Metamucil) - Jdhkvmxdgkbdr-Athdtcdk-Gwwona (MULTIVITAMIN 50 PLUS) tab Take 1 tablet [...] Negative for ti (more content not included)... [facility] 11-24-2022 History of Present illness Narrative This note was created using NoteWriter. Subjective Wendy Shipley is a 77 year old female. 77 year old female with PMH DM, HTN, hyperlipidemia and obesity presents for complaints of illness. Acute onset one week ago States she was in [place] at her sons. Endorses she was assisting [...] history is provided by the patient. No xerox machine assembler was used. Fall Incident onset: 1 week [...] daily. In 1 cup water (Namebrand Metamucil) Etdjxkcownduz-Daioahhw-Rluerp (MULTIVITAMIN 50 PLUS) tab Take 1 tablet [...] RIBS/CHEST 3V AP RIB/OBLS/CXR LEFT Sherly Leong APRN.BORDER MEASURER AND CUTTER documented in this encounter [facility] 10-26-2022 Miscellaneous Notes I did address [...] Can refer to GI as well as surgical coordinator as indicated if platelet counts drop more. [...] nerve stimulator, etc) documented in this encounter [facility] 09-17-2022 Note HNO ID: [id number] Author: Janeth Olivo MD Service: ? Author Type: Physician Type: Progress Notes Filed: 09/17/2022 6:23 PM Note Text: This note was created using [employer]. Subjective Wendy Shipley is a 77 year [...] daily. In 1 cup water (Namebrand Metamucil) Ozxzemfxfgzzo-Mmtqeqee-Rmjifx (MULTIVITAMIN 50 PLUS) tab Take 1 tablet [...] 138/74 12/04/2021 136/72 06/11/2021 136/68 04/13/2021 136/74 06/30/23 1655 09/17/22 1754 BP: 136/68 130/70 Pulse: [...] complication, without long-term current use of insulin ([facility]) E11.9 lisinopril (ZESTRIL) 10 mg tablet metFORMIN [...] of medical issues. History and medications reviewed. [facility] updated as needed Refills and/or prescriptions taken care of and (more content not included)... [facility] 09-17-2022 History of Present illness Narrative This note was created using Mipsor[employer]. Subjective Wendy Shipley is a 77 year [...] daily. In 1 cup water (Namebrand Metamucil) Vixqzuirgceff-Lpvaukkd-Rstdrb (MULTIVITAMIN 50 PLUS) tab Take 1 tablet [...] med for lipids. Adjust dose as needed. Janeth Olivo MD documented in this encounter [facility] 09-08-2022 Note HNO ID: [id number] Author: Mary Gonsalez Service: ? Author Type: Hotel Night Auditor Type: Progress Notes Filed: 09/08/2022 11:50 AM [...] PERIPHERAL IV DATA: Not applicable SIGNED BY: Mary Gonsalez September 08, 2022 11:23 AM [facility] 09-08-2022 Miscellaneous Notes September 09, 2022 PID: [id number] Wendy Shipley [address] [place] [address] Dear Ms. Shipley, We are pleased to [...] report will be kept on file at [facility] as part of your permanent medical record and are available for your continuing care. Thank you for allowing us to help in meeting your health care needs. Sincerely, Dr. Moreira Interpreting Radiologist [facility] (Normal over 40) documented in this encounter [facility] 02-20-2022 Instructions Tracey Carbajal APRN.SADE - [...] Tuesday start Augmentin documented in this encounter [facility] 02-20-2022 History of Present illness Narrative Subjective The history is provided by the patient. No xerox machine assembler was used. HPI Wendy Shipley is a [...] Tracey Carbajal APRN.SADE documented in this encounter [facility] 01-19-2022 Miscellaneous Notes Keya from Dr [...] Desire Dixon LPN documented in this encounter [facility] 01-01-2022 Miscellaneous Notes ----- Message from Janeth Olivo MD sent at 12/30/2021 12:50 AM EDT ----- Findings consistent with fatty liver infiltration as was seen on 2014 US but Nodular contour could indicate cirrhotic [...] at this time. documented in this encounter [facility] 12-29-2021 History of Present illness Narrative [...] 2021 9:46 AM documented in this encounter [facility] 12-23-2021 Miscellaneous Notes ----- Message from [...] and which labs. documented in this encounter [facility] 12-04-2021 Instructions Janeth Olivo MD - 12/04/2021 4:36 PM EDT 11/29/2017 TDAP done at [facility]-- scanned into [employer]. documented in this encounter [facility] 12-04-2021 History of Present illness Narrative This note was created using [employer]. Subjective Wendy Shipley is a 76 year old female. Patient presents with: F/U 6 months SUBJECTIVE: Wendy Shipley is a 76 year old year old lady here today for 6 month follow up appointment for review of medical conditions. 11/29/2017 TDAP done at [facility]-- scanned into [employer]. Left knee localized swelling along lateral joint [...] Take 1 tablet by mouth once daily. Sdzpjauwnxknv-Cbdxubpm-Pscpjw (MULTIVITAMIN 50 PLUS) tab Take 1 tablet [...] calculated from the following: Height as of 8/27/18: 161.3 cm (5' 3.5 ). Weight as [...] Janeth Olivo MD documented in this encounter [facility] 10-15-2021 Miscellaneous Notes Thank you for using [facility] XMLAWt. Our records indicate that you are due [...] mouth once daily. SANDHYA: No Authorizing Provider: AJNETH OLIVO MD Patient has been identified by [...] Genny Killian LPN documented in this encounter [facility] 10-02-2021 Miscellaneous Notes Please schedule with her preferred personal clothing laundry aide Haven Mcleod at the [facility] Patient calling, states that she has not gotten a response from PCP and she would like to know what would be recommended. Please advise. documented in this encounter [facility] 07-29-2021 History of Present illness Narrative POPULATION HEALTH NAVIGATION OUTREACH Action/FYI Left msg & sent [employer]. Pt identified by name and : NO Outreach Outcome/Action Unable to reach patient: Left message MyChart message sent Reason for Outreach Care Gap or Scheduling/Wellness visits Payer: Payor: [employer] MEDICARE / Plan: [employer] / Product Type: HMO / Care Gap Reviewed:: Diabetic Eye Exam Reminder: Reminder note to check Health Maintenance for items below Health Maintenance items due: ADVANCE DIRECTIVE DISCUSSION Never done COVID-19 VACCINE(4 - Booster for Pfizer series) due on 06/05/2021 DILATED RETINAL EXAM due on 08/08/2021 Message Sent to Practice: No Navigation Signature: Naomie Dias PSS July 29, 2021 9:56 AM documented in this encounter [facility] 07-20-2021 Miscellaneous Notes July 20, 2021 PID: [id number] Wendy Shipley [address] [place] [address] Dear Ms. hSipley, We are pleased to inform you that [...] report will be kept on file at [facility] as part of your permanent medical record and are available for your continuing care. Thank you for allowing us to help in meeting your health care needs. Sincerely, Dr. Fortune Interpreting Radiologist [facility] (Normal over 40) documented in this encounter [facility] 06-11-2021 Instructions Ruthie Nova APRN.CNS - 06/11/2021 2:21 PM EDT Check labs 1-2 weeks Schedule echocardiogram documented in this encounter [facility] 06-11-2021 History of Present illness Narrative [...] well. Notes recently returned from vacation in [place]. Has not yet completed advanced directives. HTN: [...] H* Septra [Sulfamethox* Zoloft [Sertraline * Medications: Iejrvaibfssyq-Wykafgnc-Vwzsoc (MULTIVITAMIN 50 PLUS) tab Take 1 tablet [...] 4 - Moderate documented in this encounter [facility] documented as of this encounter (statuses as of 06/11/2021) [facility] History of Past illness Narrative* Problem [...] of this encounter (statuses as of 07/21/2021) [facility] History of Past illness Narrative* Problem [...] of this encounter (statuses as of 07/22/2021) [facility] History of Past illness Narrative* Problem [...] of this encounter (statuses as of 07/29/2021) [facility] History of Past illness Narrative* Problem [...] of this encounter (statuses as of 10/02/2021) [facility] History of Past illness Narrative* Problem [...] of this encounter (statuses as of 10/15/2021) [facility] of [facility] Narrative* Problem [...] of this encounter (statuses as of 10/15/2021) [facility] of Past [facility] Narrative* Problem [...] of this encounter (statuses as of 12/22/2021) [facility] of Past [facility] Narrative* Problem [...] of this encounter (statuses as of 12/23/2021) [facility] of Past [facility] Narrative* Problem [...] of this encounter (statuses as of 12/30/2021) [facility] of [facility] Narrative* Problem [...] of this encounter (statuses as of 01/18/2022) [facility] of [facility] Narrative* Problem [...] of this encounter (statuses as of 01/19/2022) [facility] of [facility] Narrative* Problem [...] of this encounter (statuses as of 02/20/2022) [facility] of [facility] Narrative* Problem [...] of this encounter (statuses as of 09/10/2022) [facility] of [facility] Narrative* Problem [...] of this encounter (statuses as of 09/18/2022) [facility] of [facility] Narrative* Problem [...] of this encounter (statuses as of 10/11/2022) [facility] Narrative* Problem [...] of this encounter (statuses as of 11/03/2022) [facility] Narrative* Problem [...] of this encounter (statuses as of 11/25/2022) [facility] Narrative* Problem [...] of this encounter (statuses as of 02/23/2023) [facility] of [facility] Narrative* Problem [...] of this encounter (statuses as of 03/04/2023) [facility] note* Diagnosis Type 2 diabetes mellitus without complication, without long-term current use of insulin (HCC)- Primary Mixed hyperlipidemia Hypertension goal BP (blood pressure) < 150/90 Unspecified essential hypertension Heart murmur Undiagnosed cardiac murmurs documented in this encounter [facility] note* Diagnosis Encounter for screening mammogram for breast cancer documented in this encounter [facility] note* Diagnosis Functional diarrhea- Primary documented in this encounter [facility] note* Diagnosis Type 2 diabetes mellitus without complication, without long-term current use of insulin (HCC)- Primary Depression, unspecified depression type Hypertension goal BP (blood pressure) < 150/90 Unspecified essential hypertension Mixed hyperlipidemia documented in this encounter [facility] note* Diagnosis Type 2 diabetes mellitus without complication, without long-term current use of insulin (HCC)- Primary Hypertension goal BP (blood pressure) < 150/90 Unspecified essential hypertension Bursitis of other bursa of left knee Mixed hyperlipidemia Bunion of great toe Bunion Hammertoes of both feet documented in this encounter [facility] note* Diagnosis Elevated LFTs Other abnormal blood chemistry documented in this encounter [facility] note* Diagnosis URI, acute- Primary Acute upper respiratory infections of unspecified site documented in this encounter [facility] note* Diagnosis Type 2 diabetes mellitus without complication, without long-term current use of insulin (HCC) Hypertension goal BP (blood pressure) < 150/90 Unspecified essential hypertension Mixed hyperlipidemia Depression, unspecified depression type Polyp of colon, unspecified part of colon, unspecified type documented in this encounter [facility] note* Diagnosis Visit for screening mammogram- Primary Other screening mammogram documented in this encounter [facility] note* Diagnosis NAFLD (nonalcoholic fatty liver disease)- Primary Other chronic nonalcoholic liver disease documented in this encounter [facility] note* Diagnosis Rib pain on left side- Primary Chest pain, unspecified Fall on same level from slipping, tripping or stumbling, initial encounter documented in this encounter [facility] note* Diagnosis Bradycardia- Primary Other specified cardiac dysrhythmias Heart block Conduction disorder, unspecified SOB (shortness of breath) Shortness of breath Murmur, cardiac Undiagnosed cardiac murmurs Hypertension goal BP (blood pressure) < 150/90 Unspecified essential hypertension Encounter for immunization Need for other specified prophylactic vaccination against single bacterial disease documented in this encounter [facility] for referral (narrative)* Outpatient Procedure (Routine) - Pending Review Specialty Diagnoses / Procedures Referred By Wendie maria Referred To [facility] Diagnoses Heart murmur Procedures ECHO ECHO TTHRC R-T 2D W/WOM-MODE COMPL SPEC&COLR Ruthie Aldana APRN.CNS [address] [place] [address] [facility] [address] [place] [address] Referral ID Status Reason Start Date Expiration Date Visits Requested Visits Authorized [id number] Pending Review Auto-Generat ed Referral 06/11/2021 06/11/2022 1 1 [facility] for referral (narrative)* Diagnostic Procedure Only (Routine) - Closed Specialty Diagnoses / Procedures Referred By Wendie maria Referred To Contact [facility] Diagnoses Encounter for screening mammogram for breast cancer Procedures FLORENCIA SCREENING SCREENING MAMMOGRAPHY BI 2-VIEW BREAST INC CAD Janeth Olivo MD [address] [place] [address] [facility] [address] [place] [id number] Referral ID Status Reason Start Date Expiration Date V isits Requested Visits Authorized [id number] Closed Auto-Generate d Referral 01/14/2021 02/13/2022 1 1 [facility] for referral (narrative)* Diagnostic Procedure Only (Routine) - Closed Specialty Diagnoses / Procedures Referred By Wendie maria Referred To Contact [facility] Diagnoses Elevated LFTs Procedures US ABD RT UPPER QUADRANT US ABDOMINAL REAL TIME W/IMAGE LIMITED Janeth Olivo MD [address] [place] [address] [facility] Referral ID Status Reason Start Date Expiration Date V isits Requested Visits Authorized [id number] Closed Auto-Generate d Referral 12/22/2021 01/21/2023 1 1 [facility] for referral (narrative)* Diagnostic Procedure Only (Routine) - Pending Review Specialty Diagnoses / Procedures Referred By Wendie maria Referred To Contact [facility] Diagnoses Visit for screening mammogram Procedures FLORENCIA SCREENING SCREENING MAMMOGRAPHY BI 2-VIEW BREAST INC CAD Aria Sotomayor APRN.CNP [address] [place] [address] [facility] [address] [place] [address] Referral ID Status Reason Start Date Expiration Date Visits Requested Visits Authorized [id number] Pending Review Auto-Generat ed Referral 10/11/2022 10/03/2023 1 1 [facility] for referral (narrative)* Diagnostic Procedure Only (Urgent) - Closed Specialty Diagnoses / Procedures Referred By Wendie maria Referred To Contact X[facility]AG[facility] Diagnoses Rib pain on left side Fall on same level from slipping, tripping or stumbling, initial encounter Procedures XR RIBS/CHEST 3V AP RIB/OBLS/CXR LEFT RADEX RIBS UNI W/POSTEROANT CH MINIMUM 3 VIEWS Sherly Leong APRN.CNP [address] [place] [address] [place] [address] Referral ID Status Reason Start Date Expiration Date V isits Requested Visits Authorized [id number] Closed Auto-Generate d Referral 11/24/2022 12/24/2023 1 1 [facility] for visit Narrative* Diagnostic Procedure Only (Routine) - Closed Specialty Diagnoses / Procedures Referred By Wendie t Referred To Contact [facility] Diagnoses Encounter for screening mammogram for breast cancer Procedures FLORENCIA SCREENING SCREENING MAMMOGRAPHY BI 2-VIEW BREAST INC CAD Janeth Olivo MD [address] [place] [address] [facility] [address] [place] [address] Referral ID Status Reason Start Date Expiration Date V isits Requested Visits Authorized [id number] Closed Auto-Generate d Referral 01/14/2021 02/13/2022 1 1 [facility] Advance Directives No Advanced Directives Records FoundDocuments on File Type Date Recorded 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 Advance Directive(s) 12/17/2020 6:50 AM Advance Directive(s) 12/04/2020 11:02 AM Advance Directive(s) 02/09/2016 3:37 PM Documents on File Type Date Recorded 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 Advance Directive(s) 12/17/2020 6:50 AM [...] Functional diarrhea Procedures CONSULT TO GASTROENTEROLOGY OFFICE/OUTPATIENT [facility]3] 60-74 MINUTES Ruthie Nova, SERVANDO.CERTIFIED NURSE MIDWIFE [address] [place] [address] Referral ID Status Reason Start Date Expiration Date Visits Requested Visits Authorized [id number] Pending Review PCP Requested Referral 10/02/2021 10/02/2022 1 1 Specialty Diagnoses / Procedures Referred By Contac t Referred To Contact Diagnoses Type 2 diabetes mellitus without complication, without long-term current use of insulin (HCC) Janeth Olivo MD [address] [place] [address] Referral ID Status Reason Start Date Expiration Date V isits Requested Visits Authorized [id number] Pending Review 1 1 Specialty Diagnoses / Procedures Referred By Contac t Referred To Contact Cardiology Diagnoses Bradycardia Heart block Murmur, cardiac Procedures CONSULT TO CARDIOLOGY OFFICE/OUTPATIENT [facility]3] 60-74 MINUTES Ruthie Nova, WIRELESS CONSULTANT.CERTIFIED NURSE MIDWIFE [address] [place] [address] Referral ID Status Reason Start Date Expiration Date Visits Requested Visits Authorized [id number] Pending Review PCP Requested Referral 3 03/02/2024 [...] or prosecute any alcohol or drug abuse patient.[facility] the event this information is protected by the Federal Confidentiality of Alcohol and Drug Abuse Patient Records regulations: The Federal rules restrict any use of the information to criminally investigate or prosecute any alcohol or drug abuse patient.[facility] the event this information is protected by the Federal Confidentiality of Alcohol and Drug Abuse Patient Records regulations: The Federal rules restrict any use of the information to criminally investigate or prosecute any alcohol or drug abuse patient.[facility] HospitalIn the event this information is protected by the Federal Confidentiality of Alcohol and Drug Abuse Patient Records regulations: The Federal rules restrict any use of the information to criminally investigate or prosecute any alcohol or drug abuse patient.[facility] HospitalIn the event this information is protected by the Federal Confidentiality of Alcohol and Drug Abuse Patient Records regulations: The Federal rules restrict any use of the information to criminally investigate or prosecute any alcohol or drug abuse patient.[facility] HospitalIn the event this information is protected by the Federal Confidentiality of Alcohol and Drug Abuse Patient Records regulations: The Federal rules restrict any use of the information to criminally investigate or prosecute any alcohol or drug abuse patient.[facility] HospitalIn the event this information is protected by the Federal Confidentiality of Alcohol and Drug Abuse Patient Records regulations: The Federal rules restrict any use of the information to criminally investigate or prosecute any alcohol or drug abuse patient.[facility] HospitalIn the event this information is protected by the Federal Confidentiality of Alcohol and Drug Abuse Patient Records regulations: The Federal rules restrict any use of the information to criminally investigate or prosecute any alcohol or drug abuse patient.[facility] HospitalIn the event this information is protected by the Federal Confidentiality of Alcohol and Drug Abuse Patient Records regulations: The Federal rules restrict any use of the information to criminally investigate or prosecute any alcohol or drug abuse patient.[facility] HospitalIn the event this information is protected by the Federal Confidentiality of Alcohol and Drug Abuse Patient Records regulations: The Federal rules restrict any use of the information to criminally investigate or prosecute any alcohol or drug abuse patient.[facility] HospitalIn the event this information is protected by the Federal Confidentiality of Alcohol and Drug Abuse Patient Records regulations: The Federal rules restrict any use of the information to criminally investigate or prosecute any alcohol or drug abuse patient.[facility] HospitalIn the event this information is protected by the Federal Confidentiality of Alcohol and Drug Abuse Patient Records regulations: The Federal rules restrict any use of the information to criminally investigate or prosecute any alcohol or drug abuse patient.[facility] HospitalIn the event this information is protected by the Federal Confidentiality of Alcohol and Drug Abuse Patient Records regulations: The Federal rules restrict any use of the information to criminally investigate or prosecute any alcohol or drug abuse patient.[facility] HospitalIn the event this information is protected by the Federal Confidentiality of Alcohol and Drug Abuse Patient Records regulations: The Federal rules restrict any use of the information to criminally investigate or prosecute any alcohol or drug abuse patient.[facility] HospitalIn the event this information is protected by the Federal Confidentiality of Alcohol and Drug Abuse Patient Records regulations: The Federal rules restrict any use of the information to criminally investigate or prosecute any alcohol or drug abuse patient.[facility] HospitalIn the event this information is protected by the Federal Confidentiality of Alcohol and Drug Abuse Patient Records regulations: The Federal rules restrict any use of the information to criminally investigate or prosecute any alcohol or drug abuse patient.[facility] HospitalIn the event this information is protected by the Federal Confidentiality of Alcohol and Drug Abuse Patient Records regulations: The Federal rules restrict any use of the information to criminally investigate or prosecute any alcohol or drug abuse patient.[facility] HospitalIn the event this information is protected by the Federal Confidentiality of Alcohol and Drug Abuse Patient Records regulations: The Federal rules restrict any use of the information to criminally investigate or prosecute any alcohol or drug abuse patient.[facility] HospitalIn the event this information is protected by the Federal Confidentiality of Alcohol and Drug Abuse Patient Records regulations: The Federal rules restrict any use of the information to criminally investigate or prosecute any alcohol or drug abuse patient.[facility] HospitalIn the event this information is protected by the Federal Confidentiality of Alcohol and Drug Abuse Patient Records regulations: The Federal rules restrict any use of the information to criminally investigate or prosecute any alcohol or drug abuse patient.[facility] Reason for Visit (unrecogniz ed section [...] REAL TIME W/IMAGE LIMITED Janeth Olivo MD [address] [place] [address] Us Imaging Referral ID Status Reason Start Date Expiration Date V isits Requested Visits Authorized [id number] Closed Auto-Generate d Referral 12/22/2021 01/21/2023 1 [...] Care Teams (unrecognized sec tion and content) Dry Charge Process Attendant Relationship Specialty Start Date End Date Janeth Olivo MD [address] [place] [address] PCP - General Internal Medicine 05/20/17 Dry Charge Process Attendant Relationship Specialty Start Date End Date Janeth Olivo MD [facility] [place] [address] PCP - General Internal Medicine 05/20/17 Dry Charge Process Attendant Relationship Specialty Start Date End Date Janeth Olivo MD [address] [place] [address], [place] [address] PCP - General Internal Medicine 05/20/17 Dry Charge Process Attendant Relationship Specialty Start Date End Date Janeth Olivo MD [address] [place] [address], [place] [address] PCP - General Internal Medicine 05/20/17 Dry Charge Process Attendant Relationship Specialty Start Date End Date Janeth Olivo MD [address] [place] [address], [place] [address] PCP - General Internal Medicine 05/20/17 Dry Charge Process Attendant Relationship Specialty Start Date End Date Janeth Olivo MD [address] [place] [address], [place] [address] PCP - General Internal Medicine 05/20/17 Dry Charge Process Attendant Relationship Specialty Start Date End Date Janeth Olivo MD [address] [place] [address], [place] [address] PCP - General Internal Medicine 05/20/17 Dry Charge Process Attendant Relationship Specialty Start Date End Date Janeth Olivo MD [address] [place] [address], [place] [address] PCP - General Internal Medicine 05/20/17 Dry Charge Process Attendant Relationship Specialty Start Date End Date Janeth Olivo MD [address] [place] [address], [place] [address] PCP - General Internal Medicine 05/20/17 Dry Charge Process Attendant Relationship Specialty Start Date End Date Janeth Olivo MD [address] [place] [address], [place] [address] PCP - General Internal Medicine 05/20/17 Dry Charge Process Attendant Relationship Specialty Start Date End Date Janeth Olivo MD [address] [place] [address] PCP - General Internal Medicine 05/20/17 Dry Charge Process Attendant Relationship Specialty Start Date End Date Janeth Olivo MD [address] [place] [address] PCP - General Internal Medicine 05/20/17 Dry Charge Process Attendant Relationship Specialty Start Date End Date Janeth Olivo MD [address] [place] [address] PCP - General Internal Medicine 05/20/17 Dry Charge Process Attendant Relationship Specialty Start Date End Date Janeth Olivo MD [address] [place] [address] PCP - General Internal Medicine 05/20/17 Dry Charge Process Attendant Relationship Specialty Start Date End Date Janeth Olivo MD [address] [place] [address] PCP - General Internal Medicine 05/20/17 Dry Charge Process Attendant Relationship Specialty Start Date End Date Janeth Olivo MD [address] [place] [address] PCP - General Internal Medicine 05/20/17 Dry Charge Process Attendant Relationship Specialty Start Date End Date Janeth Olivo MD [address] [place] [address] PCP - General Internal Medicine 05/20/17 Dry Charge Process Attendant Relationship Specialty Start Date End Date Janeth Olivo MD [address] [place] [address] PCP - General Internal Medicine 05/20/17 Omayra Ramírez, RADHA [address] [place] [address] Primary Care Kier Drier 02/23/23 03/23/23 Dry Charge Process Attendant Relationship Specialty Start Date End Date Janeth Olivo MD [address] [place] [address] PCP - General Internal Medicine 05/20/17 Omayra Ramírez, RADHA [address] [place] [address] Primary Care Kier Drier 02/23/23 03/23/23 INFORMATION SOURCE (unrecogn ized section and content) DATE CREATED AUTHOR AUTHOR'S ORGANIZ ATION 03/12/2023 [facility] DATE CREATED AUTHOR AUTHOR'S ORGANIZ ATION 04/06/2023 [facility] FOR RECORDS PERTAINING TO PATIENTS WHO [...] BE BASED ON THE PRIMARY CLINICAL RECORDS. [facility] [employer] [facility]. provides no warranty or guarantee of the accuracy or completeness of information in this document.
--- NOTE | 2023-04-11 08:41 | CL.IE_ITS ---
Patient: WENDY SHIPLEY Study Date: 04/11/2023 Performing: Darwin Oliveira MD : 1945 Age: 77 Gender: female PROCEDURES PERFORMED [id number])INITIAL PACER INSERT+DUAL LEADS INDICATIONS Mobitz (type II) AV block PROCEDURE DETAILS The patient was brought to the Catheterization Lab in the postabsorptive nonsedated state. Informed consent was obtained prior to the procedure. Local anesthetic was given subcutaneously to the left upper chest area with Lidocaine 2%. Access was achieved and a guidewire was advanced into the left subclavian vein. Incision was made to the left subclavicular area. PPM ventricular lead was inserted / positioned to right ventricular apex. The sheath was then removed, ACCESS WIRE RETAINED. PPM atrial lead testing performed. PPM atrial lead was inserted / positioned to the right atrial appendage. PPM atrial lead testing performed. The Atrial lead sutured in place with 2-0 Silk. The Ventricular PM lead sutured in place with 2-0 Silk. Device pocket was irrigated with antibiotic. PPM generator was attached to the lead(s) and inserted into the pocket. Subcutaneous closure was completed with 3-0 Vicryl. PPM generator was then interrogated by the sql programmer analyst. Skin closure was completed with 4-0 Vicryl. Steri-strips applied to left subclavicular incision. Pressure dressing applied to left chest. Instrument, sponge, and needle counts were noted to be normal. The patient tolerated the procedure well. Estimated Blood Loss: 15 ml's IMPLANTED / EX-PLANTED DEVICES IMPLANTED DEVICE(S): PPM Generator - Urology Physician: [employer], Model # [id number] , Serial # [id number] PPM Atrial lead - Urology Physician: [employer], Model # [id number] , Serial # [id number] PPM Ventricular lead - Urology Physician: [employer], Model # [id number] , Serial # [id number] DEVICE PARAMETERS ATRIAL LEAD PARAMETERS: P wave- 2.4 (mV) threshold- 1.0 (V) impedence- 476 (OHMS) VENTRICULAR LEAD PARAMETERS: R wave- 6.7 (mV) threshold- 1.3 (V) impedence- 723 (OHMS) DEVICE PARAMETERS: Mode- ddd Lower rate- 60 Upper rate- 130 CONCLUSIONS / RECOMMENDATIONS Device Conclusions: Successful implantation of a dual chamber pacemaker Device Recommendations: Follow up with Primary Care Physician PROCEDURE MEDICATIONS Versed 2 mg IV Fentanyl 50 mcg IV Oxygen: 2 L/min via nasal cannula Oxygen: 4 L/min via nasal cannula Antibiotic given in appropriate timeframe. Ancef 2 Gm IV @ 04/11/2023 07:18:28 Signed By Darwin Oliveira MD On 04/11/2023 08:41:14 Darwin Oliveira MD
[2023-04-11 15:19] VITALS: BP 145/77; PULSE 94; RESP 16; TEMP 36.7; O2SAT 94
--- OUTSIDE RECORDS SUMMARY | 2023-04-11 16:26 | XMS RPT_ITS | CCD ---
Author Name Unknown Address [address] [place] [address] Organization [facility] Care Team Providers Care Career And Technology Education Teacher Name Role Phone Geovani OROZCO, Janeth Telles Primary Care Provider Geovani OROZCO, Janeth Telles Primary Care Provider Mally Borden RN, Omayra Unavailable [phone] JILL MARTE Consulting Unavaila ble JR ALEJANDRO [...] sources) levoFLOXacin; Translations: [LEVOFLOXACIN] Drug Allergy 9 [facility] Work Phone: (20 sources) PARoxetine; Translations: [PAROXETINE HCL] Drug Allergy 5 [facility] Work Phone: (20 sources) Sertraline; Translations: [SERTRALINE HCL] Drug Allergy 5 [facility] Work Phone: (20 sources) Sulfamethoxazole / Trimethoprim; Translations: [SULFAMETHOXAZOLE-TRI METHOPRIM] Drug Allergy 5 [facility] Work Phone: Medications Current Medications Medication Drug [...] Diastolic blood pressure 53 mm[Hg] Ruthie Nova RAW STOCK DYEING MACHINE TENDER.TWISTER DOFFER Work Phone: [facility] 03-03-2023 13:45-0500 Heart rate 52 /min Ruthiekyaw Nova RAW STOCK DYEING MACHINE TENDER.TWISTER DOFFER Work Phone: [facility] 03-03-2023 13:45-0500 Systolic blood pressure 146 mm[Hg] Ruthie Avtar RAW STOCK DYEING MACHINE TENDER.TWISTER DOFFER Work Phone: [facility] 03-03-2023 13:44-0500 Body weight 75.75 kg Ruthie Nova RAW STOCK DYEING MACHINE TENDER.TWISTER DOFFER Work Phone: [facility] 03-03-2023 13:44-0500 Respiratory rate 16 /min Ruthie Nova RAW STOCK DYEING MACHINE TENDER.TWISTER DOFFER Work Phone: [facility] 11-24-2022 14:14-0400 Body temperature 98.6 [degF] Sherly Leong RAW STOCK DYEING MACHINE TENDER.UTILITY ASSEMBLER Work Phone: [facility] 11-24-2022 14:14-0400 Body weight 74.39 kg Sherly Leong RAW STOCK DYEING MACHINE TENDER.UTILITY ASSEMBLER Work Phone: [facility] 11-24-2022 14:14-0400 Diastolic blood pressure 78 mm[Hg] Sherly Leong RAW STOCK DYEING MACHINE TENDER.UTILITY ASSEMBLER Work Phone: [facility] 11-24-2022 14:14-0400 Heart rate 98 /min Sherly Leong RAW STOCK DYEING MACHINE TENDER.UTILITY ASSEMBLER Work Phone: [facility] 11-24-2022 14:14-0400 Respiratory rate 18 /min Sherly Leong RAW STOCK DYEING MACHINE TENDER.UTILITY ASSEMBLER Work Phone: [facility] 11-24-2022 14:14-0400 SaO2% (BldA) [Mass fraction] 94 % Sherly Leong RAW STOCK DYEING MACHINE TENDER.UTILITY ASSEMBLER Work Phone: [facility] 11-24-2022 14:14-0400 Systolic blood pressure 132 mm[Hg] Sherly Leong RAW STOCK DYEING MACHINE TENDER.UTILITY ASSEMBLER Work Phone: [facility] 09-17-2022 17:54-0400 Diastolic blood pressure 70 mm[Hg] Janeth Olivo MD Work Phone: [facility] 09-17-2022 17:54-0400 Systolic blood pressure 130 mm[Hg] Janeth Olivo MD Work Phone: [facility] 09-17-2022 16:55-0400 Body temperature 99.19 [degF] Janeth Olivo MD Work Phone: [facility] 09-17-2022 16:55-0400 Body weight 75.3 kg Janeth Olivo MD Work Phone: [facility] 09-17-2022 16:55-0400 Heart rate 95 /min Janeth Olivo MD Work Phone: [facility] 09-17-2022 16:55-0400 Respiratory rate 18 /min Janeth Olivo MD Work Phone: [facility] 09-17-2022 16:55-0400 SaO2% (BldA) [Mass fraction] 96 % Janeth Olivo MD Work Phone: [facility] 02-20-2022 13:06-0500 Body temperature 98.49 [degF] Tracey Solomon RAW STOCK DYEING MACHINE TENDER.UTILITY ASSEMBLER Work Phone: [facility] 02-20-2022 13:06-0500 Body weight 75.48 kg Tracey Solomon RAW STOCK DYEING MACHINE TENDER.UTILITY ASSEMBLER Work Phone: [facility] 02-20-2022 13:06-0500 Diastolic blood pressure 74 mm[Hg] Tracey Solomon RAW STOCK DYEING MACHINE TENDER.UTILITY ASSEMBLER Work Phone: [facility] 02-20-2022 13:06-0500 Heart rate 101 /min Tracey Solomon RAW STOCK DYEING MACHINE TENDER.UTILITY ASSEMBLER Work Phone: [facility] 02-20-2022 13:06-0500 Respiratory rate 18 /min Tracey Solomon RAW STOCK DYEING MACHINE TENDER.UTILITY ASSEMBLER Work Phone: [facility] 02-20-2022 13:06-0500 SaO2% (BldA) [Mass fraction] 96 % Tracey Solomon RAW STOCK DYEING MACHINE TENDER.UTILITY ASSEMBLER Work Phone: [facility] 02-20-2022 13:06-0500 Systolic blood pressure 138 mm[Hg] Tracey Solomon RAW STOCK DYEING MACHINE TENDER.UTILITY ASSEMBLER Work Phone: [facility] 12-04-2021 16:11-0400 Body weight 73.03 kg Janeth Olivo MD Work Phone: [facility] 12-04-2021 16:11-0400 Diastolic blood pressure 72 mm[Hg] Janeth Olivo MD Work Phone: [facility] 12-04-2021 16:11-0400 Heart rate 93 /min Janeth Olivo MD Work Phone: [facility] 12-04-2021 16:11-0400 SaO2% (BldA) [Mass fraction] 94 % Janeth Olivo MD Work Phone: [facility] 12-04-2021 16:11-0400 Systolic blood pressure 136 mm[Hg] Janeth Olivo MD Work Phone: [facility] 06-11-2021 13:41-0400 Body weight 73.94 kg Ruthie Nova RAW STOCK DYEING MACHINE TENDER.TWISTER DOFFER Work Phone: [facility] 06-11-2021 13:41-0400 Diastolic blood pressure 68 mm[Hg] Ruthie Nova RAW STOCK DYEING MACHINE TENDER.TWISTER DOFFER Work Phone: [facility] 06-11-2021 13:41-0400 Heart rate 92 /min Ruthie Nova RAW STOCK DYEING MACHINE TENDER.TWISTER DOFFER Work Phone: [facility] 06-11-2021 13:41-0400 Respiratory rate 16 /min Ruthie Nova RAW STOCK DYEING MACHINE TENDER.TWISTER DOFFER Work Phone: [facility] 06-11-2021 13:41-0400 Systolic blood pressure 136 mm[Hg] Ruthie Nova RAW STOCK DYEING MACHINE TENDER.TWISTER DOFFER Work Phone: [facility] Encounters Encounter Date Encounter Type Care Provider Facility Start: 03-10-2023 End: 03-10-2023 ambulatory [facility] Facility:[facility] Start: 03-03-2023 End: 03-03-2023 ambulatory [facility] Facility:[facility] Start: 03-03-2023 End: 03-03-2023 Patient encounter procedure Ruthie Nova RAW STOCK DYEING MACHINE TENDER.TWISTER DOFFER Work Phone: [facility] Procedures Date Procedure Procedure Detail Performing Clinician Start: 03-03-2023 INFLUENZA VACCINE, P RSV FREE, AGE 65+ YR, HIGH DOSE, QUADRIVALENT (FLUZONE HIGH-DOSE) Ruthie Nova RAW STOCK DYEING MACHINE TENDER.TWISTER DOFFER Work Phone: Start: 03-03-2023 [employer] COVI D-19 VACCINE (2023-24 SEASON) AGE 12+ YR Ruthie Hartleys RAW STOCK DYEING MACHINE TENDER.TWISTER DOFFER Work Phone: Start: 12-29-2021 Us abdominal real ti me w/image limited Janeth Olivo MD Work Phone: Start: 07-20-2021 Screening mammograph y bi 2-view breast inc cad Bulk Order Provider Start: 12-17-2020 Colonoscopy Ruthie jacques RAW STOCK DYEING MACHINE TENDER.TWISTER DOFFER Work Phone: Start: 11-11-2020 Adult depression scr eening assessment Ruthiekyaw Nova RAW STOCK DYEING MACHINE TENDER.TWISTER DOFFER Work Phone: Plan of Treatment Date Care Activity Detail Author Start: 11-30-2027 Urine microalbumin profile [facility] Start: 12-17-2025 Colonoscopy COLONOSCOPY [facility] Start: 12-17-2025 COLORECTAL CANCER SCREENING COLORECTAL CANCER SCREENING [facility] Start: 02-22-2024 Glaucoma screening Dilated Retinal E xam [facility] Start: 02-22-2024 Hepatitis C antibody , confirmatory test Dilated Retinal Exam [facility] Start: 09-29-2023 Hepatitis B screening URINE AL BUMIN:CREATININE RATIO [facility] Start: 09-29-2023 Hepatitis B surface antibody level LDL CHOLESTEROL [facility] Start: 09-18-2023 ANNUAL PCP TEAM CEMENT FITTINGS MAKER MIRIAM DISEASE VISIT ANNUAL PCP TEAM CHRONIC DISEASE VISIT [facility] Start: 03-31-2023 Hemoglobin A1c measurement HbA1C [facility] Start: 03-31-2023 Hemoglobin A1c/Hemoglobin.total in Blood HBA1C [facility] Start: 12-04-2022 3 comp foot exam completed DIABETIC FOOT EXAM [facility] Start: 12-04-2022 ANNUAL PCP TEAM CEMENT FITTINGS MAKER MIRIAM DISEASE VISIT ANNUAL PCP TEAM CHRONIC DISEASE VISIT [facility] Start: 12-04-2022 COVID-19 VACCINE (4 - Booster for Pfizer series) COVID-19 VACCINE (4 - Booster for Pfizer series) [facility] Immunizations Immunization Date Immunization Notes Care Provider Fa rosi 03-03-2023 COVID-19 vaccine, ag e 12+ yr, season (PFIZER-BIONTECH) Ruthie Avtar RAW STOCK DYEING MACHINE TENDER.TWISTER DOFFER Work Phone: [facility] Work Phone: 03-03-2023 influenza (HD-IIV4) vaccine, age 65+ yr, high dose, quadrivalent, PF (FLUZONE HIGH-DOSE) Ruthie Nova RAW STOCK DYEING MACHINE TENDER.TWISTER DOFFER Work Phone: [facility] Work Phone: 01-15-2021 influenza (aIIV4) vaccine, age 65+ yr, quadrivalent, PF (FLUAD QUADRIVALENT) Ruthie Nova RAW STOCK DYEING MACHINE TENDER.TWISTER DOFFER Work Phone: [facility] Work Phone: 01-15-2021 influenza, injectabl e, quadrivalent, preservative free Ruthie Nova RAW STOCK DYEING MACHINE TENDER.TWISTER DOFFER Work Phone: [facility] 01-15-2021 influenza virus vaccine, unspecified formulation Blas Baird [facility] 12-09-2020 zoster vaccine recombinant Ruthie Nova RAW STOCK DYEING MACHINE TENDER.TWISTER DOFFER Work Phone: [facility] Work Phone: 12-09-2020 zoster vaccine, unspecified formulation Ruthie Nova RAW STOCK DYEING MACHINE TENDER.TWISTER DOFFER Work Phone: [facility] 06-10-2020 zoster vaccine recombinant Ruthie Nova RAW STOCK DYEING MACHINE TENDER.TWISTER DOFFER Work Phone: [facility] Work Phone: 06-10-2020 zoster vaccine, unspecified formulation Ruthie Nova RAW STOCK DYEING MACHINE TENDER.TWISTER DOFFER Work Phone: [facility] 06-09-2020 zoster vaccine recombinant Ruthie Nova RAW STOCK DYEING MACHINE TENDER.TWISTER DOFFER Work Phone: [facility] Work Phone: 01-14-2020 influenza, high dose seasonal, preservative-free Ruthie Nova RAW STOCK DYEING MACHINE TENDER.TWISTER DOFFER Work Phone: [facility] Work Phone: 01-14-2020 influenza, high-dose , quadrivalent vaccine (FLUZONE HIGH DOSE QUADRIVALENT) Ruthie Nova RAW STOCK DYEING MACHINE TENDER.TWISTER DOFFER Work Phone: [facility] Work Phone: 01-14-2020 influenza, injectabl e, quadrivalent, preservative free Ruthie Nova RAW STOCK DYEING MACHINE TENDER.TWISTER DOFFER Work Phone: [facility] 12-25-2018 influenza, high dose seasonal, preservative-free Ruthie Nova RAW STOCK DYEING MACHINE TENDER.TWISTER DOFFER Work Phone: [facility] 11-29-2017 tetanus toxoid, redu tim diphtheria toxoid, and acellular pertussis vaccine, adsorbed Ruthie Nova RAW STOCK DYEING MACHINE TENDER.TWISTER DOFFER Work Phone: [facility] Work Phone: 11-23-2017 influenza, high dose seasonal, preservative-free Ruthie Nova RAW STOCK DYEING MACHINE TENDER.TWISTER DOFFER Work Phone: [facility] 01-17-2017 influenza, high dose seasonal, preservative-free Ruthie Nova RAW STOCK DYEING MACHINE TENDER.TWISTER DOFFER Work Phone: [facility] Work Phone: 12-04-2015 influenza, high dose seasonal, preservative-free Ruthie Nova RAW STOCK DYEING MACHINE TENDER.TWISTER DOFFER Work Phone: [facility] Work Phone: 02-27-2015 zoster vaccine, live Ruthie B roger RAW STOCK DYEING MACHINE TENDER.TWISTER DOFFER Work Phone: [facility] Work Phone: 01-22-2015 pneumococcal polysaccharide vaccine, 23 valent Ruthie Nova RAW STOCK DYEING MACHINE TENDER.TWISTER DOFFER Work Phone: [facility] 01-07-2014 pneumococcal conjuga te vaccine, 13 valent Ruthie Nova RAW STOCK DYEING MACHINE TENDER.TWISTER DOFFER Work Phone: [facility] 12-04-2011 influenza virus vaccine, unspecified formulation Ruthie Nova RAW STOCK DYEING MACHINE TENDER.TWISTER DOFFER Work Phone: [facility] 12-16-2010 influenza virus vaccine, unspecified formulation Ruthie Nova RAW STOCK DYEING MACHINE TENDER.TWISTER DOFFER Work Phone: [facility] Work Phone: 01-17-2007 influenza virus vaccine, unspecified formulation Ruthie Nova RAW STOCK DYEING MACHINE TENDER.TWISTER DOFFER Work Phone: [facility] Work Phone: 08-18-2006 pneumococcal polysaccharide vaccine, 23 valent Ruthie Nova SERVANDO.TWISTER DOFFER Work Phone: [facility] Work Phone: 01-26-2005 influenza virus vaccine, unspecified formulation Ruthie Nova SERVANDO.TWISTER DOFFER Work Phone: [facility] Work Phone: 11-13-2004 diphtheria and tetan us toxoids, adsorbed for pediatric use Ruthie Nova SERVANDO.TWISTER DOFFER Work Phone: [facility] Work Phone: NEGATED: Highlighted row has not occurred!02-21-2023 COVID-19 vaccine, age 12+ yr, season ([employer]) Blas Gardinerpadmini [facility] Work Phone: NEGATED: Highlighted row has not occurred!02-21-2023 influenza (HD-IIV4) vaccine, age 65+ yr, high dose, quadrivalent, PF (FLUZONE HIGH-DOSE) Blas Gardinerpadmini [facility] Work Phone: Payers Date Payer Category Payer Medicare HUMANA MEDICARE HUMANA GOLD PLUS [id number] 2020-Present [phone] [address] [address] [place] [id number] O [id number] 2020 Medicare HUMANA MEDICARE HUMANA GOLD PLUS [id number] 2020-Present [phone] [address] [address] [place] [address] O [id number] 2020 Private Health Insurance [id number] 1945 Unknown [id number] Private Health Insurance Social History Date Type Detail Facility Start: 12-04-2021 Tobacco smoking status NHIS Never smoked tobacco [facility] Work Phone: Start: 06-11-2021 End: 03-03-2023 Alcohol intake Current drinker of alcohol (finding) [facility] Start: 06-11-2021 End: 09-17-2022 Alcohol intake [facility] Start: 06-22-2019 History SDOH Alcohol Frequency 3 [facility] Start: 06-22-2019 History SDOH Alcohol Std Drinks 1 [facility] Start: 12-17-2020 History SDOH Alcohol Comment glass of wine 2 times per week [facility] Start: 06-22-2019 History SDOH Social Connections Phone 5 [facility] Start: 06-22-2019 History SDOH Social Connections Get Together 2 [facility] Start: 06-22-2019 History SDOH Physical Activity DPW 0 [facility] Start: 06-22-2019 History SDOH Financial 4 [facility] Start: 06-22-2019 Education 17 [facility] Start: 1945 Sex Assigned At Female [facility] Start: 06-01-2021 End: 02-20-2022 Exposure to SARS-CoV-2 (event) Not sure [facility] Work Phone: Start: 12-04-2021 Tobacco use and exposure Smokeless tobacco non-user [facility] Start: 12-13-2021 End: 12-23-2021 Exposure to SARS-CoV-2 (event) Unable to assess [facility] Work Phone: Start: 06-22-2019 End: 09-17-2022 Social connection and isolation panel [facility] Do you belong to any clubs or organizations such as worship groups, unions, fraternal or athletic groups, or school groups? No [facility] Are you now , , , , never or living with a partner? [facility] How often to you hav e a drink containing alcohol? 2-4 times a month [facility] How many standard dr inks containing alcohol do you have on a typical day? 1 or 2 [facility] How often do you hav e 6 or more drinks on 1 occasion? Never [facility] How hard is it for y ou to pay for the very basics like food, housing, medical care, and heating Not very hard [facility] Adult Depression Screening Assessment 0 [facility] Do you feel stress - tense, restless, nervous, or anxious, or unable to sleep at night because your mind is troubled all the time - these days [OSQ] Not at all [facility] (I/We) worried wheth er (my/our) food would run out before (I/we) got money to buy more. Never true [facility] Start: 11-19-2020 Gender identity Identifies as female gender (finding) [facility] Start: 11-19-2020 Sexual orientation Heterosexual (finding) [facility] Medical Equipment Procedure Code Equipment Code Equipment Origin al Text Equipment Identifier Dates Start: 08-25-2006 End: 09-17-2022 Clinical Notes 01-22-2015 to 03-10-2023 Patient InstructionsBroRuthie dubon APRN.TWISTER DOFFER - 03/03/2023 1:40 PM Blas Treadwell - 02/23/2023 10:37 AM Blas Treadwell - 02/22/2023 2:14 PM Sherly Russo APRN.UTILITY ASSEMBLER - 11/24/2022 2:20 PM EDT Note Date & Type Note Facility 03-10-2023 Note HNO ID: [id number] Author: Ruthie Nova APRN.TWISTER DOFFER Service: ? Author Type: Nurse Specialist Type: [...] emergency department. She prefers to go to [facility] by private transport, to drive. She reports being seen by outside hospital area cleaner at [facility] and had echocardiogram completed at their office several days ago. Still has not received outside area cleaner review of echocardiogram results. She prefers to follow-up with [facility] providers. She currently notes shortness of breath [...] than 130/80 lisinop (more content not included)... [facility] 03-03-2023 Note HNO ID: [id number] Author: Ruthie Nova APRN.TWISTER DOFFER Service: ? Author Type: Nurse Specialist Type: [...] hyperlipidemia Medication review completed Yes Ruthie Nova APRN.TWISTER DOFFER Provider Documentation: In follow-up of hospitalization, Wedny Shipley is a 77 year old female [...] She reports being seen by outside hospital area cleaner at [facility] and had echocardiogram completed at their office several days ago. Still has not received outside area cleaner review of echocardiogram results. She prefers to follow-up with [facility] providers. She currently notes shortness of breath [...] Lymph 1.00 - 4.00 k/uL 1.[address]% % 12.[address] [place] <0.87 k/uL 0.79 1.09 (H) Eosin% % [...] by outside hos (more content not included)... [facility] 03-03-2023 Instructions Ruthie Nova APRN.CNS - 03/03/2023 2:14 PM EST Call to schedule a cardiology appointment (see Secret Spacehart message) [phone]. Go to the ER ofr any severe or concerning symptoms documented in this encounter [facility] 03-03-2023 History of Present illness Narrative Transitional [...] She reports being seen by outside hospital area cleaner at [facility] and had echocardiogram completed at their office several days ago. Still has not received outside area cleaner review of echocardiogram results. She prefers to follow-up with [facility] providers. She currently notes shortness of breath [...] Lymph 1.00 - 4.00 k/uL 1.[address] [place]% % 12.[address] [place] <0.87 k/uL 0.79 1.09 (H) Eosin% % [...] She reports being seen by outside hospital area cleaner when she was at [facility]. She reports echocardiogram completed at their office but has no report yet regarding this. She prefers to see a [facility] area cleaner. Will request echo report. - ECHO - [...] YR, HIGH DOSE, QUADRIVALENT (FLUZONE HIGH-DOSE) - [employer] COVID-19 VACCINE (2022- SEASON) AGE 12+ YR Ruthie Nova APRN.CNS March 03, 2023 12:56 PM documented in this encounter [facility] 02-23-2023 Note HNO ID: [id number] Author: Omayra Ramírez RN Service: ? Author Type: Registered Nurse Type: Progress Notes Filed: 02/25/2023 4:27 PM Note Text: TCM Home Visit Referral Source of Stratification: [facility] Admission Status: Discharged Readmission Risk [...] a voicemail to return my call at [phone]. Will attempt to outreach to patient again later today or tomorrrow if no return call from patient. SUMMARY: Discharge Network Status: In-Network Discharge Pt discharged from [facility] on 02/22/2023. Admitted for: bradycardia Contact made with patient: No - next outreach attempt will be on next business day Outreach ended Omayra Borden RN February 23, 2023 2:04 PM [facility] 02-23-2023 Note Patient Outreach [place] [facility] [place] WENDY SHIPLEY ([id number]) 1945 F Date Time Provider Department 02/23/23 OMAYRA RAMÍREZ AMBBLAKEG During your visit today, we recorded the following information about you: Omayra Ramírez, RADHA 02/25/2023 4:27 PM Signed TCM Home Visit Referral Source of Stratification: [facility] Admission Status: Discharged Readmission Risk [...] a voicemail to return my call at [phone]. Will attempt to outreach to patient again later today or tomorrrow if no return call from patient. SUMMARY: Discharge Network Status: In-Network Discharge Pt discharged from [facility] on 02/22/2023. Admitted for: bradycardia [...] In 1 cup water (Namebrand Metamucil) - Yuadncuqbxefi-Nhdppaks-Cluybb (MULTIVITAMIN 50 PLUS) tab Take 1 tablet [...] Encounter Status:Closed by OMAYRA RAMÍREZ on 02/25/23 [facility] 02-23-2023 Note HNO ID: [id number] Author: lBas Baird Service: ? Author Type: ? Type: Progress Notes Filed: 02/23/2023 10:41 AM Note Text: Transition Care Management (TCM) Inpatient Outreach Provider Action/ TCM - Inpatient Outreach NOTE - The discharge process was completed prior to [facility] making 2nd Inpatient Outreach call. Patient is active on My Chart; a Secure message was sent with the information of the upcoming RN Outreach call. Summary: Patient admitted to [facility] Patient admitted on 02/21/23 Admitted for Bradycardia Contact made with patient: Bettie Alvarez, my name is Blas Baird and I am calling from the [facility] [facility] on behalf of Janeth Olivo MD. I am sorry that I missed you today, but your care is important to us, and we would like to touch base with you. The discharge process was completed prior to [facility] making 2nd Inpatient Outreach call. Patient is active on My Chart; a Secure message was sent with the information of the upcoming RN Outreach call. Thank you and have a great day. Outreach ended. Blas Baird February 23, 2023 [facility] 02-23-2023 History of Present illness Narrative Transition Care Management (TCM) Inpatient Outreach Provider Action/FYI TCM - Inpatient Outreach NOTE - The discharge process was completed prior to [facility] making 2nd Inpatient Outreach call. Patient is active on My Chart; a Secure message was sent with the information of the upcoming RN Outreach call. Summary: Patient admitted to [facility] Patient admitted on 02/21/23 Admitted for Bradycardia Contact made with patient: Bettie Alvarez, my name is Blas Baird and I am calling from the [facility] on behalf of Janeth Olivo MD. I am sorry that I missed you today, but your care is important to us, and we would like to touch base with you. The discharge process was completed prior to [facility] making 2nd Inpatient Outreach call. Patient is active on My Chart; a Secure message was sent with the information of the upcoming RN Outreach call. Thank you and have a great day. Outreach ended. Blas Baird February 23, 2023 Transition Care Management (TCM) Inpatient Outreach Provider Action/FYI TCM - Inpatient Outreach NOTE - 1st Call No Contact Summary: Patient admitted to [facility] Patient admitted on 02/21/23 Admitted for Bradycardia Contact made with patient: Bettie Alvarez, my name is Blas Olguin Joepadmini and I am calling from the [facility] on behalf of Janeth Olivo MD. I [...] February 22, 2023 documented in this encounter [facility] 02-22-2023 Note HNO ID: [id number] Author: Blas Baird Service: ? Author Type: ? Type: Progress Notes Filed: 02/23/2023 10:41 AM Note Text: Transition Care Management (TCM) Inpatient Outreach Provider Action/FYI TCM - Inpatient Outreach NOTE - 1st Call No Contact Summary: Patient admitted to [facility] Patient admitted on 02/21/23 Admitted for Bradycardia Contact made with patient: Bettie Alvarez, my name is Blas Olguin Brie and I am calling from the [facility] on behalf of Janeth Olivo MD. I am sorry that I missed you today, but your care is important to us, and we would like to touch base with you. We will attempt to reach you again later today, 02/22/23, tomorrow, 02/23/23 or through a [employer] Secure Patient Message. Thank you and have a great day. Outreach ended. Blas Baird February 22, 2023 [facility] 02-22-2023 Note Patient Outreach [place] [facility] [place] WENDY SHIPLEY ([id number]) 1945 F Date Time Provider Department 02/22/23 BLAS BAIRD ([facility]) [facility] During your visit today, we recorded the following information about you: Blas Baird 02/23/2023 10:41 AM Signed Transition Care Management (TCM) Inpatient Outreach Provider Action/ TCM - Inpatient Outreach NOTE - 1st Call No Contact Summary: Patient admitted to [facility] Patient admitted on 02/21/23 Admitted for Bradycardia Contact made with patient: Bettie Alvarez, my name is Blas Baird and I am calling from the [facility] on behalf of Janeth Olivo MD. I am sorry that I missed you today, but your care is important to us, and we would like to touch base with you. We will attempt to reach you again later today, 02/22/23, tomorrow, 02/23/23 or through a [employer] Secure Patient Message. Thank you and have a great day. Outreach ended. Blas Baird February 22, 2023 Blas Baird 02/23/2023 10:41 AM Signed Transition Care Management (TCM) Inpatient Outreach Provider Action/FYI TCM - Inpatient Outreach NOTE - The discharge process was completed prior to [facility] making 2nd Inpatient Outreach call. Patient is active on My Chart; a Secure message was sent with the information of the upcoming RN Outreach call. Summary: Patient admitted to [facility] Patient admitted on 02/21/23 Admitted for Bradycardia Contact made with patient: Bettie Alvarez, my name is Blas Baird and I am calling from the [facility] on behalf of Janeth Olivo MD. I am sorry that I missed you today, but your care is important to us, and we would like to touch base with you. The discharge process was completed prior to [facility] making 2nd Inpatient Outreach call. Patient [...] In 1 cup water (Namebrand Metamucil) - Fspemuolwpfdr-Luqjzxmj-Iewpqe (MULTIVITAMIN 50 PLUS) tab Take 1 tablet [...] heart failure (HC (more content not included)... [facility] 02-21-2023 Note HNO ID: [id number] Author: Delisa Colunga RT(Demetrius) Service: ? Author [...] RT Norma(Demetrius) February 21, 2023 9:17 PM [facility] 02-21-2023 Note HNO ID: [id number] Author: Ruthie Nova APRN.TWISTER DOFFER Service: ? Author Type: Nurse Specialist Type: [...] cup water (Namebr (more content not included)... [facility] 11-24-2022 Note HNO ID: [id number] Author: Mary Argueta RT(R) Service: Radiology Author [...] RT Anabella(R) November 24, 2022 2:27 PM [facility] 11-24-2022 Note HNO ID: [id number] Author: Sherly Leong APRN.UTILITY ASSEMBLER Service: ? Author Type: Nurse Practitioner Type: Progress Notes Filed: 11/24/2022 3:18 PM Note Text: This note was created using NoteWriter. Subjective Wendy Shipley is a 77 year old female. 77 year old female with PMH DM, HTN, hyperlipidemia and obesity presents for complaints of illness. Acute onset one week ago States she was in [place] at her sons. Endorses she was assisting [...] history is provided by the patient. No speech/language therapist was used. Fall Incident onset: 1 week [...] In 1 cup water (Namebrand Metamucil) - Alhcfyqxjumpm-Hhdzzikw-Thqkjk (MULTIVITAMIN 50 PLUS) tab Take 1 tablet [...] Negative for ti (more content not included)... [facility] 11-24-2022 History of Present illness Narrative This note was created using NoteWriter. Subjective Wendy Shipley is a 77 year old female. 77 year old female with PMH DM, HTN, hyperlipidemia and obesity presents for complaints of illness. Acute onset one week ago States she was in [place] at her sons. Endorses she was assisting [...] history is provided by the patient. No speech/language therapist was used. Fall Incident onset: 1 week [...] daily. In 1 cup water (Namebrand Metamucil) Jxrehcqnkuyxy-Vkgwomwp-Zvgicf (MULTIVITAMIN 50 PLUS) tab Take 1 tablet [...] RIBS/CHEST 3V AP RIB/OBLS/CXR LEFT Sherly Leong APRN.UTILITY ASSEMBLER documented in this encounter [facility] 10-26-2022 Miscellaneous Notes I did address platelet [...] Can refer to GI as well as media arts professor as indicated if platelet counts drop more. [...] nerve stimulator, etc) documented in this encounter [facility] 09-17-2022 Note HNO ID: [id number] Author: Janeth lOivo MD Service: ? Author Type: Physician Type: Progress Notes Filed: 09/17/2022 6:23 PM Note Text: This note was created using Zafgen. Subjective Wendy Shipley is a 77 year [...] daily. In 1 cup water (Namebrand Metamucil) Sbvdznhntwcfs-Jzdapwoq-Lufmsn (MULTIVITAMIN 50 PLUS) tab Take 1 tablet [...] complication, without long-term current use of insulin ([facility]) E11.9 lisinopril (ZESTRIL) 10 mg tablet metFORMIN [...] of medical issues. History and medications reviewed. [facility] updated as needed Refills and/or prescriptions taken care of and (more content not included)... [facility] 09-17-2022 History of Present illness Narrative This note was created using SecretSalesriter. Subjective Wendy Shipley is a 77 year [...] daily. In 1 cup water (Namebrand Metamucil) Ztchcoetsatwd-Etxgwyun-Oaquda (MULTIVITAMIN 50 PLUS) tab Take 1 tablet [...] Janeth Olivo MD documented in this encounter [facility] 09-08-2022 Note HNO ID: [id number] Author: Mary Gonsalez Service: ? Author Type: Skill Labor Type: Progress Notes Filed: 09/08/2022 11:50 AM [...] Mary Gonsalez September 08, 2022 11:23 AM [facility] 09-08-2022 Miscellaneous Notes September 09, 2022 PID: [id number] Wendy Shipley [address] [place] [address] Dear Ms. Shipley, We are pleased to [...] report will be kept on file at [facility] as part of your permanent medical record and are available for your continuing care. Thank you for allowing us to help in meeting your health care needs. Sincerely, Dr. Moreira Interpreting Radiologist [facility] (Normal over 40) documented in this encounter [facility] 02-20-2022 Instructions Tracey Carbajal APRN.SADE - 02/20/2022 [...] Tuesday start Augmentin documented in this encounter [facility] 02-20-2022 History of Present illness Narrative Subjective The history is provided by the patient. No speech/language therapist was used. HPI Wendy Shipley is a [...] Tracey Carbajal APRN.SADE documented in this encounter [facility] 01-19-2022 Miscellaneous Notes Keya from Dr Gar's [...] Desire Dixon LPN documented in this encounter [facility] 01-01-2022 Miscellaneous Notes ----- Message from Janeth [...] at this time. documented in this encounter [facility] 12-29-2021 History of Present illness Narrative Radiology [...] 2021 9:46 AM documented in this encounter [facility] 12-23-2021 Miscellaneous Notes ----- Message from Janeth [...] and which labs. documented in this encounter [facility] 12-04-2021 Instructions Janeth Olivo MD - 12/04/2021 4:36 PM EDT 11/29/2017 TDAP done at [facility]-- scanned into Compliance Assurance. documented in this encounter [facility] 12-04-2021 History of Present illness Narrative This note was created using Prosperity Catalystter. Subjective Wendy Shipley is a 76 year old female. Patient presents with: F/U 6 months SUBJECTIVE: Wendy Shipley is a 76 year old year old lady here today for 6 month follow up appointment for review of medical conditions. 11/29/2017 TDAP done at [facility]-- scanned into Compliance Assurance. Left knee localized swelling along lateral joint [...] Take 1 tablet by mouth once daily. Vocztisofkuwk-Ctiynxfr-Gcbyxv (MULTIVITAMIN 50 PLUS) tab Take 1 tablet [...] Janeth Olivo MD documented in this encounter [facility] 10-15-2021 Miscellaneous Notes Thank you for using [facility] FetchBackt. Our records indicate that you are due [...] Genny Killian LPN documented in this encounter [facility] 10-02-2021 Miscellaneous Notes Please schedule with her preferred telephone solicitor Haven Mcleod at the [facility] Patient calling, states that she has not gotten a response from PCP and she would like to know what would be recommended. Please advise. documented in this encounter [facility] 07-29-2021 History of Present illness Narrative POPULATION HEALTH NAVIGATION OUTREACH Action/FYI Left msg & sent Secret Spacehart. Pt identified by name and : NO Outreach Outcome/Action Unable to reach patient: Left message MyChart message sent Reason for Outreach Care Gap or Scheduling/Wellness visits Payer: Payor: [employer] MEDICARE / Plan: [employer] / Product Type: HMO / Care Gap [...] 2021 9:56 AM documented in this encounter [facility] 07-20-2021 Miscellaneous Notes July 20, 2021 PID: [id number] Wendy Shipley [address] [place] [address] Dear Ms. Shipley, We are pleased to [...] report will be kept on file at [facility] as part of your permanent medical record and are available for your continuing care. Thank you for allowing us to help in meeting your health care needs. Sincerely, Dr. Fortune Interpreting Radiologist [facility] (Normal over 40) documented in this encounter [facility] 06-11-2021 Instructions Ruthie Nova APRN.CNS - 06/11/2021 2:21 PM EDT Check labs 1-2 weeks Schedule echocardiogram documented in this encounter [facility] 06-11-2021 History of Present illness Narrative SUBJECTIVE: [...] well. Notes recently returned from vacation in [place]. Has not yet completed advanced directives. HTN: [...] H* Septra [Sulfamethox* Zoloft [Sertraline * Medications: Pzxzkwrdnesub-Aeaawipc-Iqxbfa (MULTIVITAMIN 50 PLUS) tab Take 1 tablet [...] 4 - Moderate documented in this encounter [facility] documented as of this encounter (statuses as of 06/11/2021) [facility] History of Past illness Narrative* Problem Noted [...] of this encounter (statuses as of 07/21/2021) [facility] History of Past illness Narrative* Problem Noted [...] of this encounter (statuses as of 07/22/2021) [facility] History of Past illness Narrative* Problem Noted [...] of this encounter (statuses as of 07/29/2021) [facility] History of Past illness Narrative* Problem Noted [...] of this encounter (statuses as of 10/02/2021) [facility] History of Past illness Narrative* Problem Noted [...] of this encounter (statuses as of 10/15/2021) [facility] History of Past illness Narrative* Problem Noted [...] of this encounter (statuses as of 10/15/2021) [facility] History of Past illness Narrative* Problem Noted [...] of this encounter (statuses as of 12/22/2021) [facility] History of Past illness Narrative* Problem Noted [...] of this encounter (statuses as of 12/23/2021) [facility] History of Past illness Narrative* Problem Noted [...] of this encounter (statuses as of 12/30/2021) [facility] History of Past illness Narrative* Problem Noted [...] of this encounter (statuses as of 01/18/2022) [facility] History of Past illness Narrative* Problem Noted [...] of this encounter (statuses as of 01/19/2022) [facility] History of Past illness Narrative* Problem Noted [...] of this encounter (statuses as of 02/20/2022) [facility] History of Past illness Narrative* Problem Noted [...] of this encounter (statuses as of 09/10/2022) [facility] History of Past illness Narrative* Problem Noted [...] of this encounter (statuses as of 09/18/2022) [facility] History of Past illness Narrative* Problem Noted [...] of this encounter (statuses as of 10/11/2022) [facility] History of Past illness Narrative* Problem Noted [...] of this encounter (statuses as of 11/03/2022) [facility] History of Past illness Narrative* Problem Noted [...] of this encounter (statuses as of 11/25/2022) [facility] History of Past illness Narrative* Problem Noted [...] of this encounter (statuses as of 02/23/2023) [facility] History of Past illness Narrative* Problem Noted [...] of this encounter (statuses as of 03/04/2023) [facility] note* Diagnosis Type 2 diabetes mellitus without complication, without long-term current use of insulin (HCC)- Primary Mixed hyperlipidemia Hypertension goal BP (blood pressure) < 150/90 Unspecified essential hypertension Heart murmur Undiagnosed cardiac murmurs documented in this encounter [facility] note* Diagnosis Encounter for screening mammogram for breast cancer documented in this encounter [facility] note* Diagnosis Functional diarrhea- Primary documented in this encounter [facility] note* Diagnosis Type 2 diabetes mellitus without complication, without long-term current use of insulin (HCC)- Primary Depression, unspecified depression type Hypertension goal BP (blood pressure) < 150/90 Unspecified essential hypertension Mixed hyperlipidemia documented in this encounter [facility] note* Diagnosis Type 2 diabetes mellitus without complication, without long-term current use of insulin (HCC)- Primary Hypertension goal BP (blood pressure) < 150/90 Unspecified essential hypertension Bursitis of other bursa of left knee Mixed hyperlipidemia Bunion of great toe Bunion Hammertoes of both feet documented in this encounter [facility] note* Diagnosis Elevated LFTs Other abnormal blood chemistry documented in this encounter [facility] note* Diagnosis URI, acute- Primary Acute upper respiratory infections of unspecified site documented in this encounter [facility] note* Diagnosis Type 2 diabetes mellitus without complication, without long-term current use of insulin (HCC) Hypertension goal BP (blood pressure) < 150/90 Unspecified essential hypertension Mixed hyperlipidemia Depression, unspecified depression type Polyp of colon, unspecified part of colon, unspecified type documented in this encounter [facility] note* Diagnosis Visit for screening mammogram- Primary Other screening mammogram documented in this encounter [facility] note* Diagnosis NAFLD (nonalcoholic fatty liver disease)- Primary Other chronic nonalcoholic liver disease documented in this encounter [facility] note* Diagnosis Rib pain on left side- Primary Chest pain, unspecified Fall on same level from slipping, tripping or stumbling, initial encounter documented in this encounter [facility] note* Diagnosis Bradycardia- Primary Other specified cardiac dysrhythmias Heart block Conduction disorder, unspecified SOB (shortness of breath) Shortness of breath Murmur, cardiac Undiagnosed cardiac murmurs Hypertension goal BP (blood pressure) < 150/90 Unspecified essential hypertension Encounter for immunization Need for other specified prophylactic vaccination against single bacterial disease documented in this encounter [facility] for referral (narrative)* Outpatient Procedure (Routine) - Pending Review Specialty Diagnoses / Procedures Referred By Wendie maria Referred To [facility] Diagnoses Heart murmur Procedures ECHO ECHO TTHRC R-T 2D W/WOM-MODE COMPL SPEC&COLR Ruthie Aldana APRN.CNS [address] [place] [address] [facility] [place] [address] [place] [address] Referral ID Status Reason Start Date Expiration Date Visits Requested Visits Authorized [id number] Pending Review Auto-Generat ed Referral 06/11/2021 06/11/2022 1 1 [facility] for referral (narrative)* Diagnostic Procedure Only (Routine) - Closed Specialty Diagnoses / Procedures Referred By Wnedie maria Referred To Contact [facility] Diagnoses Encounter for screening mammogram for breast cancer Procedures FLORENCIA SCREENING SCREENING MAMMOGRAPHY BI 2-VIEW BREAST INC CAD Janeth Olivo MD [address] [place] [address] [facility] [address] [place] [id number] Referral ID Status Reason Start Date Expiration Date V isits Requested Visits Authorized [id number] Closed Auto-Generate d Referral 01/14/2021 02/13/2022 1 1 [facility] for referral (narrative)* Diagnostic Procedure Only (Routine) - Closed Specialty Diagnoses / Procedures Referred By Wendie maria Referred To Contact [facility] Diagnoses Elevated LFTs Procedures US ABD RT UPPER QUADRANT US ABDOMINAL REAL TIME W/IMAGE LIMITED Janeth Olivo MD [address] [place] [address] [facility] Referral ID Status Reason Start Date Expiration Date V isits Requested Visits Authorized [id number] Closed Auto-Generate d Referral 12/22/2021 01/21/2023 1 1 [facility] for referral (narrative)* Diagnostic Procedure Only (Routine) - Pending Review Specialty Diagnoses / Procedures Referred By Wendie maria Referred To Contact [facility] Diagnoses Visit for screening mammogram Procedures FLORENCIA SCREENING SCREENING MAMMOGRAPHY BI 2-VIEW BREAST INC CAD Aria Sotomayor APRN.CNP [address] [place] [address] [facility] [address] [place] [address] Referral ID Status Reason Start Date Expiration Date Visits Requested Visits Authorized [id number] Pending Review Auto-Generat ed Referral 10/11/2022 10/03/2023 1 1 [facility] for referral (narrative)* Diagnostic Procedure Only (Urgent) - Closed Specialty Diagnoses / Procedures Referred By Wendie maria Referred To Contact X[facility] Diagnoses Rib pain on left side Fall on same level from slipping, tripping or stumbling, initial encounter Procedures XR RIBS/CHEST 3V AP RIB/OBLS/CXR LEFT RADEX RIBS UNI W/POSTEROANT CH MINIMUM 3 VIEWS Sherly Leong APRN.CNP [address] [place] [address] [place] [address] Referral ID Status Reason Start Date Expiration Date V isits Requested Visits Authorized [id number] Closed Auto-Generate d Referral 11/24/2022 12/24/2023 1 1 [facility] for visit Narrative* Diagnostic Procedure Only (Routine) - Closed Specialty Diagnoses / Procedures Referred By Wendie t Referred To Contact [facility] Diagnoses Encounter for screening mammogram for breast cancer Procedures FLORENCIA SCREENING SCREENING MAMMOGRAPHY BI 2-VIEW BREAST INC CAD Janeth Olivo MD [address] [place] [address] [facility] [address] [place] [address] Referral ID Status Reason Start Date Expiration Date V isits Requested Visits Authorized [id number] Closed Auto-Generate d Referral 01/14/2021 02/13/2022 1 1 [facility] Advance Directives No Advanced Directives Records FoundDocuments on File Type Date Recorded Patient Surgical Services Manager Expl anation Advance Directive(s) 12/17/2020 6:50 AM Advance Directive(s) 12/04/2020 11:02 AM Advance Directive(s) 02/09/2016 3:37 PM Documents on File Type Date Recorded Patient Surgical Services Manager Expl anation Advance Directive(s) 12/17/2020 6:50 AM [...] Functional diarrhea Procedures CONSULT TO GASTROENTEROLOGY OFFICE/OUTPATIENT [facility] 60-74 MINUTES Ruthie Nova, SERVANDO.TWISTER DOFFER [address] [place] [address] Referral ID Status Reason Start Date Expiration Date Visits Requested Visits Authorized [id number] Pending Review PCP Requested Referral 10/02/2021 10/02/2022 1 1 Specialty Diagnoses / Procedures Referred By Contac t Referred To Contact Diagnoses Type 2 diabetes mellitus without complication, without long-term current use of insulin (HCC) Janeth Olivo MD [address] [place] [address] Referral ID Status Reason Start Date Expiration Date V isits Requested Visits Authorized [id number] Pending Review 1 1 Specialty Diagnoses / Procedures Referred By Contac t Referred To Contact Cardiology Diagnoses Bradycardia Heart block Murmur, cardiac Procedures CONSULT TO CARDIOLOGY OFFICE/OUTPATIENT [facility] 60-74 MINUTES Ruthie Nova, RAW STOCK DYEING MACHINE TENDER.TWISTER DOFFER [address] [place] [address] Referral ID Status Reason Start Date Expiration Date Visits Requested Visits Authorized [id number] Pending Review PCP Requested Referral 3 03/02/2024 [...] or prosecute any alcohol or drug abuse patient.[facility] the event this information is protected by the Federal Confidentiality of Alcohol and Drug Abuse Patient Records regulations: The Federal rules restrict any use of the information to criminally investigate or prosecute any alcohol or drug abuse patient.[facility]In the event this information is protected by the Federal Confidentiality of Alcohol and Drug Abuse Patient Records regulations: The Federal rules restrict any use of the information to criminally investigate or prosecute any alcohol or drug abuse patient.[facility]In the event this information is protected by the Federal Confidentiality of Alcohol and Drug Abuse Patient Records regulations: The Federal rules restrict any use of the information to criminally investigate or prosecute any alcohol or drug abuse patient.[facility]In the event this information is protected by the Federal Confidentiality of Alcohol and Drug Abuse Patient Records regulations: The Federal rules restrict any use of the information to criminally investigate or prosecute any alcohol or drug abuse patient.[facility]In the event this information is protected by the Federal Confidentiality of Alcohol and Drug Abuse Patient Records regulations: The Federal rules restrict any use of the information to criminally investigate or prosecute any alcohol or drug abuse patient.[facility] SouthIn the event this information is protected by the Federal Confidentiality of Alcohol and Drug Abuse Patient Records regulations: The Federal rules restrict any use of the information to criminally investigate or prosecute any alcohol or drug abuse patient.[facility]In the event this information is protected by the Federal Confidentiality of Alcohol and Drug Abuse Patient Records regulations: The Federal rules restrict any use of the information to criminally investigate or prosecute any alcohol or drug abuse patient.[facility] SouthIn the event this information is protected by the Federal Confidentiality of Alcohol and Drug Abuse Patient Records regulations: The Federal rules restrict any use of the information to criminally investigate or prosecute any alcohol or drug abuse patient.[facility]In the event this information is protected by the Federal Confidentiality of Alcohol and Drug Abuse Patient Records regulations: The Federal rules restrict any use of the information to criminally investigate or prosecute any alcohol or drug abuse patient.[facility]In the event this information is protected by the Federal Confidentiality of Alcohol and Drug Abuse Patient Records regulations: The Federal rules restrict any use of the information to criminally investigate or prosecute any alcohol or drug abuse patient.[facility] SouthIn the event this information is protected by the Federal Confidentiality of Alcohol and Drug Abuse Patient Records regulations: The Federal rules restrict any use of the information to criminally investigate or prosecute any alcohol or drug abuse patient.[facility]In the event this information is protected by the Federal Confidentiality of Alcohol and Drug Abuse Patient Records regulations: The Federal rules restrict any use of the information to criminally investigate or prosecute any alcohol or drug abuse patient.[facility]In the event this information is protected by the Federal Confidentiality of Alcohol and Drug Abuse Patient Records regulations: The Federal rules restrict any use of the information to criminally investigate or prosecute any alcohol or drug abuse patient.[facility]In the event this information is protected by the Federal Confidentiality of Alcohol and Drug Abuse Patient Records regulations: The Federal rules restrict any use of the information to criminally investigate or prosecute any alcohol or drug abuse patient.[facility] SouthIn the event this information is protected by the Federal Confidentiality of Alcohol and Drug Abuse Patient Records regulations: The Federal rules restrict any use of the information to criminally investigate or prosecute any alcohol or drug abuse patient.[facility] SouthIn the event this information is protected by the Federal Confidentiality of Alcohol and Drug Abuse Patient Records regulations: The Federal rules restrict any use of the information to criminally investigate or prosecute any alcohol or drug abuse patient.[facility]In the event this information is protected by the Federal Confidentiality of Alcohol and Drug Abuse Patient Records regulations: The Federal rules restrict any use of the information to criminally investigate or prosecute any alcohol or drug abuse patient.[facility] SouthIn the event this information is protected by the Federal Confidentiality of Alcohol and Drug Abuse Patient Records regulations: The Federal rules restrict any use of the information to criminally investigate or prosecute any alcohol or drug abuse patient.[facility] SouthIn the event this information is protected by the Federal Confidentiality of Alcohol and Drug Abuse Patient Records regulations: The Federal rules restrict any use of the information to criminally investigate or prosecute any alcohol or drug abuse patient.[facility] Reason for Visit (unrecogniz ed section and [...] REAL TIME W/IMAGE LIMITED Janeth Olivo MD [address] [place] [address] Us Imaging Referral ID Status Reason Start Date Expiration Date V isits Requested Visits Authorized [id number] Closed Auto-Generate d Referral 12/22/2021 01/21/2023 1 [...] Care Teams (unrecognized sec tion and content) Career And Technology Education Teacher Relationship Specialty Start Date End Date Janeth Olivo MD [address] [place] [address] PCP - General Internal Medicine 05/20/17 Career And Technology Education Teacher Relationship Specialty Start Date End Date Janeth Olivo MD [facility] [place] [address] PCP - General Internal Medicine 05/20/17 Career And Technology Education Teacher Relationship Specialty Start Date End Date Janeth Olivo MD [address] [place] [address], [place] [address] PCP - General Internal Medicine 05/20/17 Career And Technology Education Teacher Relationship Specialty Start Date End Date Janeth Olivo MD [address] [place] [address], [place] [address] PCP - General Internal Medicine 05/20/17 Career And Technology Education Teacher Relationship Specialty Start Date End Date Janeth Olivo MD [address] [place] [address], [place] [address] PCP - General Internal Medicine 05/20/17 Career And Technology Education Teacher Relationship Specialty Start Date End Date Janeth Olivo MD [address] [place] [address], [place] [address] PCP - General Internal Medicine 05/20/17 Career And Technology Education Teacher Relationship Specialty Start Date End Date Janeth Olivo MD [address] [place] [address], [place] [address] PCP - General Internal Medicine 05/20/17 Career And Technology Education Teacher Relationship Specialty Start Date End Date Janeth Olivo MD [address] [place] [address], [place] [address] PCP - General Internal Medicine 05/20/17 Career And Technology Education Teacher Relationship Specialty Start Date End Date Janeht Olivo MD [address] [place] [address], [place] [address] PCP - General Internal Medicine 05/20/17 Career And Technology Education Teacher Relationship Specialty Start Date End Date Janeth Olivo MD [address] [place] [address], [place] [address] PCP - General Internal Medicine 05/20/17 Career And Technology Education Teacher Relationship Specialty Start Date End Date Janeth Olivo MD [address] [place] [address] PCP - General Internal Medicine 05/20/17 Career And Technology Education Teacher Relationship Specialty Start Date End Date Janeth Olivo MD [address] [place] [address] PCP - General Internal Medicine 05/20/17 Career And Technology Education Teacher Relationship Specialty Start Date End Date Janeth Olivo MD [address] [place] [address] PCP - General Internal Medicine 05/20/17 Career And Technology Education Teacher Relationship Specialty Start Date End Date Janeth Olivo MD [address] [place] [address] PCP - General Internal Medicine 05/20/17 Career And Technology Education Teacher Relationship Specialty Start Date End Date Janeth Olivo MD [address] [place] [address] PCP - General Internal Medicine 05/20/17 Career And Technology Education Teacher Relationship Specialty Start Date End Date Janeth Olivo MD [address] [place] [address] PCP - General Internal Medicine 05/20/17 Career And Technology Education Teacher Relationship Specialty Start Date End Date Janeth Olivo MD [address] [place] [address] PCP - General Internal Medicine 05/20/17 Career And Technology Education Teacher Relationship Specialty Start Date End Date Janeth Olivo MD [address] [place] [address] PCP - General Internal Medicine 05/20/17 Omayra Ramírez, RADHA [address] [place] [address] Primary Care Instrument Fitter 02/23/23 03/23/23 Career And Technology Education Teacher Relationship Specialty Start Date End Date Janeth Olivo MD [address] [place] [address] PCP - General Internal Medicine 05/20/17 Omayra Ramírez, RADHA [address] [place] [address] Primary Care Instrument Fitter 02/23/23 03/23/23 INFORMATION SOURCE (unrecogn ized section and content) DATE CREATED AUTHOR AUTHOR'S ORGANIZ ATION 03/12/2023 [facility] DATE CREATED AUTHOR AUTHOR'S ORGANIZ ATION 04/06/2023 [facility] FOR RECORDS PERTAINING TO PATIENTS WHO ARE [...] BE BASED ON THE PRIMARY CLINICAL RECORDS. [facility]. provides no warranty or guarantee of the accuracy or completeness of information in this document.
[2023-04-11] MEDS: metFORMIN (XR) 500 MG Tablet 1000 MG PO (18:12)
[2023-04-11 20:42] VITALS: BP 141/74; PULSE 94; RESP 14; TEMP 36.9; O2SAT 93
[2023-04-11] MEDS: Atorvastatin Calcium 20 MG Tablet PO (20:45)
[2023-04-12 03:24] VITALS: BP 129/67; PULSE 87; RESP 16; TEMP 36.9; O2SAT 93
--- NOTE | 2023-04-12 05:55 | RAD_ITS ---
EXAM: XR CHEST, 2 VIEWS CLINICAL INDICATION: Post permanant ICD/Pacemaker -- inspiration/expiration. Arms Down. Wet read to MD TECHNIQUE: Frontal and lateral views of the chest. Inspiration and expiration frontal views. COMPARISON: No relevant prior studies available. FINDINGS: LUNGS AND PLEURAL SPACES: Unremarkable. No consolidation or edema. No pneumothorax. No effusion. HEART: Unremarkable. Cardiac silhouette not enlarged. MEDIASTINUM: Central airways and mediastinal contour are unremarkable. BONES/JOINTS: Unremarkable. No acute fracture. SOFT TISSUES: Unremarkable. TUBES, LINES AND DEVICES: Pacemaker leads in good position. RAD/Chest 3 View IMPRESSION: 1. Pacemaker leads in good position. 2. No pneumothorax. Electronically Signed: Raul Givens MD at 5:38 EST ,
[2023-04-12 07:45] VITALS: BP 143/73; PULSE 77; RESP 16; TEMP 36.7; O2SAT 95
[2023-04-12] MEDS: metFORMIN (XR) 500 MG Tablet PO (08:11)
--- NOTE | 2023-04-12 09:28 | PCM.PN.CARD ---
Subjective Subjective Patient seen and evaluated. Appears to be doing well. Objective Data Vital Signs: Vital Signs Temp Pulse Resp BP Pulse Ox O2 Del Method 98.0 F 77 16 143/73 H 95 Room Air 04/12/23 07:45 04/12/23 07:45 04/12/23 07:45 04/12/23 07:45 04/12/23 07:45 04/12/23 08:58 Oxygen Delivery Method Room Air Weight: 160 lb Body Mass Index (BMI) 27.4 Intake & Output: Intake and Output for Last 24 Hours 04/10/23 04/11/23 04/12/23 23:59 23:59 23:59 Intake Total 320 / 320 280 / 280 Output Total 700 / 700 500 / 500 Balance -380 / -380 -220 / -220 Cardiology Labs/Tests Rhythm: EKG: ECHO: Stress Test: Cardiac Cath: PCI: CT Surgery: Holter monitor: EPS: PPM: CXR: Chest CT Scan: Radiography Diagnostic Testing: Radiology Impression Chest X-Ray 04/12/23 05:55 IMPRESSION: 1. Pacemaker leads in good position. 2. No pneumothorax. Electronically Signed: Raul Givens MD at 5:38 EST , Physical Exam Const alert, oriented x3 and no apparent distress General Appearance: cooperative HEENT hearing grossly normal bilaterally Head and Scalp: atraumatic Eyes EOMs intact bilaterally Neck General: normal visual inspection Chest inspection of chest normal and palpation of chest normal Resp normal respiratory effort Auscultation: clear to auscultation bilaterally Cardio regular rate, regular rhythm, S1 normal heart sound and S2 normal heart sound Jugular Venous Distention: JVD GI normal to inspection, nondistended, normoactive bowel sounds Extremity normal capillary refill and no pedal edema Peripheral Pulses: Yes pulses 2+ throughout and femoral pulses present Skin no rashes or lesions noted Neuro oriented x3 and CN's II-XII intact bilaterally Psych Appearance: grossly normal and appropriate Assessment & Plan Assessment/Plan (1) Third degree heart block: PLAN: Patient is status post permanent pacemaker implantation. Chest x-ray at demonstrates no evidence of pneumothorax and pacemaker check demonstrates normal numbers. Patient will be discharged for outpatient follow-up.
--- NOTE | 2023-04-12 09:30 | DCINST_ITS ---
Discharge Instructions Diet Discharge Diet: No restrictions (as you feel able. No excessive stretching. No lifting your arm over your head (keep elbow below shoulder level) until seen for your pacemaker check. Do not lift your elbow away from your side until you are seen for your first visit. Keep the arm sling on if it helps remind you not to lift your arm.) Activity Discharge Activity: May Not Drive May shower in (days): 2 Additional Activity Instructions:: May shower or bathe on [day 3]. Do not scrub the incision or soak in the tub. Just wash with soap and let the water run over the incision. Gently pat dry with towel. Medications: Take your pain medication as directed. Refer to your discharge instruction sheet for a list of medications you are to take. Dressing / Incision Call your doctor if your incision/area has: Continuous Slow Oozing, Sudden Increased Bleeding, Increased Pain/ Swelling, Increased Redness, Foul Smelling Discharge and Swelling at the incision site Call your doctor if you observe: Fever of 101 or Higher, Shortness of breath, Dizziness, Fainting spells, Swelling in the ankles, Chest pain, Prolonged hiccupping and Increased palpitations (irregular heartbeat) Suture Line Care: Avoid Pulling/Pushing and Avoid Pinching/Bending Cleanse incision/area with: Keep Dressing Clean & Dry Additional Dressing/Incision Instructions:: When dressing is removed, wash and dry incision. Keep covered with a light bandage if it is rubbing against your clothing. Do not cover the incision with an airtight bandage. Change the bandage daily. Do not remove steri strips. The strips will fall off on their own. Follow Up Care Please Follow Up With: Darwin Oliveira MD When: Pacer follow-up on April 18 at 130pm Test Results: Test results from this visit will be discussed in further detail at your follow- up appointment, if applicable. Discharge Plan Admission Admit Date/Time: 04/11/23 14:59 Attending Provider: Darwin Oliveira Primary Care Provider: Neelam Olivo Discharge Orders/Prescriptions Prescriptions: No Action lisinopril 10 mg tablet 10 mg PO DAILY venlafaxine 37.5 mg capsule,extended release 24hr 37.5 mg PO DAILY metformin 500 mg tablet extended release 24 hr 500 mg PO BID Rx Instructions: 1 tab qam, 2 tabs qpm simvastatin 40 mg tablet 40 mg PO DAILY biotin 2,500 mcg capsule 5,000 mcg PO DAILY multivitamin [Daily Multi-Vitamin] Tablet 1 tab PO DAILY coenzyme Q10 100 mg capsule 100 mg PO DAILY naproxen sodium [Aleve] 220 mg capsule 220 mg PO BID PRN (Reason: pain) loratadine 10 mg tablet 10 mg PO DAILY calcium citrate 250 mg calcium tablet 250 mg PO DAILY Rx Instructions: 2 tabs daily Referrals / Follow Up: Neelam Olivo MD [Primary Care Provider] - Disposition Disposition (needs filled in before D/C Order can be placed): Home, Self Care
[2023-04-12 09:41] VITALS: BP 148/73; PULSE 86; RESP 16; TEMP 36; O2SAT 96
[2023-04-12] MEDS: Lisinopril 10 MG Tablet PO (09:58)
--- NOTE | 2023-04-12 10:41 | CASEMGMT ---
Patient has order for discharge. RN CM in to discuss needs at discharge. Patient denies needs or help at discharge. Patient denies any questions or concerns.
== END 2023-04-12 09:25 | disposition home or self-care (01) ==
LOC: CLSP 16:02 → PCU 16:02
PROVIDERS: Admitting Provider Internal Medicine Cardiovascular Disease; PCP Internal Medicine; Referring Provider Internal Medicine Cardiovascular Disease; Visit Provider Internal Medicine Cardiovascular Disease
DX: Z45.018 Encounter for adjustment and management of other part of cardiac pacemaker (principal); I44.2 Atrioventricular block, complete; Z79.899 Other long term (current) drug therapy
CPT/HCPCS: 33208; 71047; 99152; 99153; 99221; J7040; J7050; C1894; G0378

== ENCOUNTER → 2023-08-24 | Outpatient (CLI) | payer MEDICARE, SELFPAY ==
--- NOTE | 2023-08-24 09:54 | STRESSREP ---
Stress Test Report Pharmacologic myocardial perfusion stress test. 78-year-old lady with a history of dyspnea on exertion Resting EKG demonstrates sinus rhythm with a rate of 84 bpm. Resting blood pressure is 132/72 mmHg. 0.4 mg of regadenoson was infused per usual protocol followed by rapid intravenous saline flush injection. Continuous EKG monitoring was performed. The maximum heart rate was 121 bpm which was 84% of max impacted heart rate the maximum workload was 1 metabolic equivalent. At rest there were no ST or T wave changes noted to suggest ischemia and at peak infusion nonspecific ST changes were noted which did not meet the criteria for ischemia. No clinical angina is noted. The final blood pressure was 142/80 mmHg. Myocardial perfusion protocol. 11.5 mCi of technetium 99m sestamibi was injected at rest. 0.4 mg of regadenoson was infused per usual protocol. At peak infusion 34.2 mCi of technetium 99m sestamibi was injected stress images were obtained stress and rest images were reconstructed and compared in the short axis vertical long and horizontal long axis. Gated images were also obtained. Perfusion SPECT analysis: Review of the stress images demonstrate normal uptake of tracer noted in all areas of the myocardium. The resting images similar demonstrated normal uptake of tracer noted in all areas of the myocardium. No areas of reversibility are noted to suggest ischemia and no previous infarct is noted. Gated SPECT analysis: The gated ejection fraction is 78%. Conclusion: Normal pharmacologic myocardial perfusion stress test. Preserved ejection fraction.
== END | disposition home or self-care (01) ==
LOC: CVS 06:27
PROVIDERS: PCP Internal Medicine; Referring Provider Internal Medicine Cardiovascular Disease; Visit Provider Internal Medicine Cardiovascular Disease
DX: I44.2 Atrioventricular block, complete (principal); R06.09 Other forms of dyspnea; Z95.0 Presence of cardiac pacemaker
CPT/HCPCS: 78452; 93017; A9500; A4216; J2785

== ENCOUNTER → 2024-05-22 | Outpatient (CLI) | payer MEDICARE, SELFPAY ==
[2024-05-22 18:00] LABS: Hematocrit 28.8 % (37-47); Hemoglobin 8.6 g/dL (12.0-15.0); Mean Corp Hgb Conc 29.9 g/dL (32-36); Mean Corpuscular Hgb 24.7 pg (27.0-32.0); Mean Corpuscular Volume 82.8 fL (81-99); Mean Platelet Vol. 10.6 fl (6.2-12.0); Platelet Count 229 K/mm3 (150-450); RBC Distribution Width CV 18.9 % (11.6-14.6); RBC Distribution Width SD 57.1 fl (35.1-43.9); Red Blood Count 3.48 M/mm3 (4.2-5.4); White Blood Count 5.6 K/mm3 (4.4-11.0)
[2024-05-22 18:07] LABS: International Normalized Ratio 1.1; Prothrombin Time (Protime)PT. 14.9 SECONDS (11.7-14.9)
[2024-05-22 18:08] LABS: Partial Thromboplast Time 34.3 Seconds (24.1-36.2)
[2024-05-22 18:34] LABS: ALB/GLOB Ratio 1.4 RATIO (0.9-2.4); AST(SGOT) 43 U/L (<=31); Alanine Aminotransfer ALT/SGPT 35 U/L (<=34); Albumin, Serum 3.8 g/dL (3.4-4.8); Alkaline Phosphatase 135 U/L (35-104); Anion Gap 13 (5-15); BUN 9 mg/dL (4-19); Calcium,Total 9.3 mg/dL (7.6-11.0); Carbon Dioxide 21.7 mmol/L (21.0-32.0); Chloride 104 mmol/L (98-108); Creatinine, Serum 0.57 mg/dL (0.70-1.20); EST Glomerular Filtration Rate 93 (>60); Globulin 2.6 g/dL (2.2-4.2); Glucose 108 mg/dL (70-99); Potassium 3.7 mmol/L (3.3-5.1); Protein, Total 6.4 g/dL (5.9-8.4); Sodium Level 139 mmol/L (133-145)
[2024-05-24 04:07] LABS: AFP, Tumor Marker 7.2 ng/mL (0.0-9.2)
== END | disposition home or self-care (01) ==
LOC: MTLAB 16:22
PROVIDERS: PCP Internal Medicine; Referring Provider Internal Medicine Gastroenterology; Visit Provider Internal Medicine Gastroenterology
DX: K74.60 Unspecified cirrhosis of liver (principal)
CPT/HCPCS: 36415; 80053; 82105; 85027; 85610; 85730

== ENCOUNTER → 2024-08-22 | Outpatient (CLI) | payer MEDICARE, SELFPAY ==
--- NOTE | 2024-08-22 12:42 | MRI_ITS ---
PROCEDURE: MRI ABD WITH AND W/O CONTRAST, 08/22/2024 REASON FOR EXAM: CIRRHOSIS TECHNIQUE: Multiplanar multisequence MRI abdomen was performed with and without IV contrast. IV contrast: 15 mL Clariscan COMPARISON: None FINDINGS: Variable overall mild motion limitation. Coronal T2 sequence is moderately motion degraded. Note some abdominal viscera are excluded from the field of view of some sequences at these the exam was optimized for evaluation of the liver. Liver: Cirrhosis. Spleen: Splenomegaly, 13.7 cm. Gallbladder: Cholecystectomy. Borderline mild dilatation of the CBD to 7 mm for age, possible post cholecystectomy effect. Pancreas: Unremarkable. Adrenals: Unremarkable. Kidneys: Unremarkable. Bowel: Not well evaluated by MRI. Diverticulosis. Lymph nodes: Unremarkable. Vasculature: Question distal esophageal varices. Patent portal vein, splenic vein, and SMV. Small recanalized umbilical vein.. Atherosclerosis. Prominent bilateral ovarian veins, nonspecific. Peritoneum: Trace largely perihepatic free fluid. Bones: Severe T11 compression deformity without specific evidence of acuity. Mild lumbar levoscoliosis. Multilevel spondylosis, not well evaluated, but with multilevel spinal canal stenosis suspected. Other: LEFT basilar presumed atelectasis/scarring. Presumed intracardiac pacer/defibrillator leads. MRI/MRI Abd WITH and W/O Contrast IMPRESSION: 1. Cirrhosis with sequela of portal hypertension including splenomegaly and tra ce ascites. 2. No visualized suspicious focal hepatic lesion identified. 3. Additional description as above. Reading Location: [id number]
[2024-08-22 13:00] VITALS: BP 117/79; PULSE 85; RESP 18; O2SAT 95
[2024-08-22 13:22] VITALS: BP 122/52; PULSE 86; RESP 18; O2SAT 96
[2024-08-22 13:40] VITALS: BP 116/54; PULSE 86; RESP 18; O2SAT 96
[2024-08-22 13:50] VITALS: BP 105/80; PULSE 80; RESP 18; O2SAT 96
== END | disposition home or self-care (01) ==
PROVIDERS: PCP Internal Medicine; Referring Provider Internal Medicine Gastroenterology; Visit Provider Internal Medicine Gastroenterology
DX: K74.60 Unspecified cirrhosis of liver (principal)
CPT/HCPCS: 74183; A9575; A4216

== ENCOUNTER 2024-10-01 14:23 | Outpatient (CLI) | payer MEDICARE, SELFPAY ==
[2024-10-01 19:07] LABS: CRP < 3.00 mg/L (0.0-3.0)
[2024-10-03 18:08] LABS: Immunoglobulin A 344 mg/dL (64-422)
== END 2024-10-01 23:59 | disposition home or self-care (01) ==
LOC: MTLAB 14:23
PROVIDERS: PCP Internal Medicine; Referring Provider Internal Medicine Gastroenterology; Visit Provider Internal Medicine Gastroenterology
DX: R19.7 Diarrhea, unspecified (principal)
CPT/HCPCS: 36415; 82784; 83516; 86140; 86255

== ENCOUNTER 2024-10-10 13:27 | Outpatient (CLI) | payer MEDICARE, SELFPAY ==
[2024-10-12 10:08] LABS: Fats, Neutral Normal (.); Fats, Total Increased (.)
[2024-10-21 00:07] LABS: Pancreatic Elastase, Fecal 302 (>200)
== END 2024-10-10 23:59 | disposition home or self-care (01) ==
LOC: LAB.FUTURE 13:29 → MTLAB 10-12 07:31
PROVIDERS: PCP Internal Medicine; Referring Provider Internal Medicine Gastroenterology; Visit Provider Internal Medicine Gastroenterology
DX: R19.7 Diarrhea, unspecified (principal)
CPT/HCPCS: 82653; 82705

== ENCOUNTER → 2024-11-28 | Outpatient (CLI) | payer MEDICARE, SELFPAY ==
--- NOTE | 2024-11-28 15:58 | RAD_ITS ---
PROCEDURE: CHEST PA AND LATERAL 11/28/2024 REASON FOR EXAM: PPM SITE PAIN TECHNIQUE: Procedure Code: RADCXR Modality: DX Procedure: CHEST PA AND LATERAL COMPARISON: 04/12/2023. FINDINGS: The heart is normal in size. Hilar prominence which may represent vascular congestion but adenopathy can not be excluded. Left basilar linear atelectasis versus scar. Left chest pacemaker. No acute osseous abnormalities. RAD/Chest PA and Lateral IMPRESSION: Pulmonary findings as above. Reading Location: [id number]
== END | disposition home or self-care (01) ==
LOC: RAD 15:42
PROVIDERS: PCP Internal Medicine; Referring Provider Nurse Practitioner Family; Visit Provider Nurse Practitioner Family
DX: R06.09 Other forms of dyspnea (principal); I44.2 Atrioventricular block, complete; I44.1 Atrioventricular block, second degree; I35.0 Nonrheumatic aortic (valve) stenosis; I10 Essential (primary) hypertension; Z95.0 Presence of cardiac pacemaker
CPT/HCPCS: 71046